=== PATIENT | female | born 1965 | race Caucasian/White ===

== ENCOUNTER 2021-03-07 17:51 | Emergency (ER) | payer MEDICARE, MEDICAID, SELFPAY ==
--- NOTE | ~2021-03-07 | CT_ITS ---
EXAMINATION: CT HEAD WITHOUT CONTRAST CLINICAL INFORMATION: Headache COMPARISON: None TECHNIQUE: Contiguous axial imaging was performed from the skull base to vertex without intravenous administration of contrast. This CT examination was performed using dose optimization techniques as appropriate, variously including the following: *Automated exposure control *Adjustment of mA and/or kV according to patient size (this includes techniques or standardized protocols for targeted exams where dose is matched to indication/reason for exam; i.e. extremities or head) *Use of iterative reconstruction technique DLP: 688 mGy-cm FINDINGS: There is no evidence of acute intracranial hemorrhage or territorial infarction. No abnormal mass effect or midline shift is seen. Zee to white matter differentiation is well preserved. No extra-axial fluid collections are identified. The ventricles are normal in size. There is no abnormal attenuation within the brain parenchyma. The osseous structures and soft tissues are normal. The mastoid air cells and visualized portions of the paranasal sinuses are well aerated. CT/CT head/brain wo con IMPRESSION: No CT evidence acute intracranial pathology.
[2021-03-07 18:03] VITALS: BP 108/61; BP 123/63; PULSE 69; PULSE 73; RESP 16; TEMP 36.7; O2SAT 96; BMI 49.9
[2021-03-07 18:11] VITALS: BP 106/65; PULSE 69; RESP 17; TEMP 36.9; O2SAT 97
--- NOTE | 2021-03-07 18:16 | PC.NURSE ---
PT ARRIVED VIA AMBULANCE. PT REPORTS OTERO FOR ALMOST 1wk. TAKES 10mg LISINOPRIL FOR HTN, TAKES BP WITH WRIST CUFF AT HOME AND HAS BEEN GETTING HIGH READINGS FOR THE PAST 2 DAYS. TAKES CLONIDINE AND HYDROXYZINE FOR ANXIETY, METFORMIN FOR DIABETES.
--- NOTE | 2021-03-07 18:34 | ED_ITS ---
HPI - Headache General Chief Complaint: Headache Stated Complaint: HI BP,HEADACHE X 7 DAYS Time Seen by Provider: 03/07/21 20:02 Source: patient and EMS Mode of arrival: EMS Limitations: no limitations History of Present Illness HPI Narrative: 56-year-old female with past medical history of obesity, hypertension, and recurrent headaches presents via EMS with a report of an elevated blood pressure of 170/80, and headache with retro-orbital pain that she has had for the past 7 days. She reports that she was recently worked up by an supervisor kennel for elevated eye pressure, states that her eye pressure is 27, and h as a follow-up appointment next week. She was not started on any new medications, does not report any other symptoms, denies fevers, chills, dizziness, lightheadedness, nausea, vomiting, changes in vision, chest pain or pressure, palpitations, shortness breath, shortness breath on exertion, abdominal pain, abdominal distention, dysuria, hematuria, diarrhea, constipation, melena, hematochezia, and any other concerning symptoms. MD elicited complaint: headache and migraine Pertinent past history: migraines Onset (ago): day(s) (7) Onset description: gradually Location: retro-orbital Severity: moderate Pain scale (0-10): 7 Quality & Timing: throbbing, pulsatile, steady, constant, pressure and different than previous headaches Relieving factors: nothing Context: occurred at rest Associated symptoms: none Treatments prior to arrival: acetaminophen and ibuprofen Related Data Previous Rx's Medication Instructions Recorded [id number]-ieclyviozlrcb-fmfl 1 cap PO Q6H PRN #14 cap 03/07/21 [Fioricet] Allergies Allergy/AdvReac Type Severity Reaction Status Date / Time No Known Allergies Allergy Mild NONE Unverified 08/13/20 16:59 N.K.D.A. Allergy Unknown Uncoded 06/09/17 00:00 Review of Systems Review of Systems: Constitutional: Positive headache, No Fever, No Chills ENT/Mouth: No Ear Pain, No Hoarseness, No sore throat Eyes: Positive Eye Pain, No Swelling, No Redness, No Foreign Body Cardiovascular: No Chest Pain, No SOB Respiratory: No Cough, No Dyspnea Gastrointestinal: No Nausea, No Vomiting, No Diarrhea, No abdominal Pain Genitourinary: No Dysuria, No Hematuria Musculoskeletal: positive joint pain, No Myalgias, No Joint Swelling Skin: No Skin lacerations, No rash Neuro: No Weakness, No Numbness, No Paresthesias, No Loss of Consciousness, No Dizziness, No Headache Psych: No Anxiety/Panic, No Depression Heme/Lymph: no easy bruising, no Lymphadenopathy Endocrine: No Polyuria, No Polydipsia Yes all other systems are reviewed and are negative [facility] Past Medical History Attestation statement: The following information was validated with the patient. Source: old records reviewed Social History Social History Smoking Status: Never smoker Use of substances other than those prescribed or required for medical reasons: No Advance Directives: No Advance Directives Information Provided: Yes Physical Exam Vital Signs: Vital Signs: Last Vital Signs Temp 98.4 F 03/07/21 18:11 Pulse 69 03/07/21 18:11 Resp 17 03/07/21 18:11 BP 106/65 03/07/21 18:11 Pulse Ox 97 03/07/21 18:11 Body Mass Index 49.9 Appearance: Alert. Oriented X3. No acute distress. Head: Normal external exam. Normocephalic. Atraumatic. No Gaytan signs noted. No raccoon eyes noted Eyes: PERRLA. EOMI. Conjunctiva and sclera normal. Eyelids normal. ENT: TM's Normal. Pharynx normal. Uvula midline. Moist mucous membranes. No trismus noted. No drooling noted. No muffled voice noted. Neck: Normal inspection. Neck supple. No adenopathy. Thyroid Normal. No meningeal signs. No neck mass noted. CVS: Normal heart rate and rhythm. Heart sound normal. No murmurs noted. Pulses equal to all extremities. Respiratory: No respiratory distress. Painless inspiration. Breath sounds normal. No wheezes/rales/rhonchi noted. Chest nontender. No accessory muscle usage noted or decreased air movement noted. Abdomen: Soft and nontender. Bowel sounds normal in all 4 quadrants. No distention noted. No organomegaly noted. No visible injury noted. Back: No CVA tenderness. Full range of motion noted. Skin: Skin warm and dry. Normal skin color. Normal skin turgor. No rashes/lesions/lacerations noted. Extremities: No lower extremity edema. Extremities exhibit normal range of motion. Extremities nontender. Neuro: cranial nerves 2-12 intact, no focal neural deficits, strength 5/5 to all extremities, No motor deficit. No sensory deficit. Reflexes normal. NIH Stroke Scale Internal: Initial- Upon Arrival Level of Consciousness: Alert Level of Consciousness Questions: Answers both questions correctly Level of Consciousness Commands: Performs both tasks correctly Best Gaze: Normal Visual: No visual loss Facial Palsy: Normal Motor Arm (Right): No drift Motor Arm (Left): No drift Motor Leg (Right): No drift Motor Leg (Left): No drift Limb Ataxia: Absent Sensory: Normal Best Language: No aphasia Dysarthia: Normal Extinction and Inattention: No abnormality Score: 0 Course Course Course Narrative: 56-year-old female with obesity, hypertension, chronic headaches presents with an elevated blood pressure reading from home of 170/80, currently blood pressure is 108/61, and with a headache for 7 days retro-orbital pressure. She states that she has been taking Tylenol once a day, and has only used Motrin once throughout the week. She does not describe any other symptoms with the exception that she was worked up by Ophthalmology for an elevated eye pressure. She does not have any medications to control his eye pressure but does have a follow-up appointment next week. Neurological exam is negative, physical exam is normal, plan of care discussed with patient, patient would like to have a CT scan. Risks and benefits discussed. At this time patient is afebrile, asymptomatic, vital signs within normal limits and stable. No need for further studies at this time. CT scan is negative for acute findings requiring emergent intervention. Patient was advised to follow up with primary care physician for hypertension, will give a prescription for Fioricet for migraines. Patient was encouraged to follow up with Optometry for elevated eye pressures as scheduled. Patient verbalized understanding of and agrees plan of care discharge home. MDM - Headache Differential Diagnosis Differential diagnosis: Likely migraine, tension headache, headache and sinusitis Medical Records Attestation: I reviewed the patient's medical records. Imaging Data CT scan - head: Attestation: I personally reviewed and interpreted this imaging study as follows: Radiologist's impression: EXAMINATION: CT HEAD WITHOUT CONTRAST CLINICAL INFORMATION: Headache COMPARISON: None TECHNIQUE: Contiguous axial imaging was performed from the skull base to vertex without intravenous administration of contrast. This CT examination was performed using dose optimization techniques as appropriate, variously including the following: *Automated exposure control *Adjustment of mA and/or kV according to patient size (this includes techniques or standardized protocols for targeted exams where dose is matched to indication/reason for exam; i.e. extremities or head) *Use of iterative reconstruction technique DLP: 688 mGy-cm FINDINGS: There is no evidence of acute intracranial hemorrhage or territorial infarction. No abnormal mass effect or midline shift is seen. Zee to white matter differentiation is well preserved. No extra-axial fluid collections are identified. The ventricles are normal in size. There is no abnormal attenuation within the brain parenchyma. The osseous structures and soft tissues are normal. The mastoid air cells and visualized portions of the paranasal sinuses are well aerated. CT/CT head/brain wo con IMPRESSION: No CT evidence acute intracranial pathology. Discharge Plan Discharge Clinical Impression: Headache Qualifiers: Headache type: unspecified Headache chronicity pattern: chronic headache Intractability: intractable Qualified Code(s): R51.9 - Headache, unspecified Hypertension Qualifiers: Hypertension type: essential hypertension Qualified Code(s): I10 - Essential (primary) hypertension Patient Disposition: Home, Self-Care Instructions: Migraine Headache (ED), Hypertension (ED) Additional Instructions: You were evaluated for headache, and hypertension. During your ER visit your blood pressure was normal. Please follow-up the primary care physician for further hypertension workup. We did a CT scan of your head for headache lasting over [address] scan was normal. We prescribed Fioricet for migraines. Please take this medication as prescribed Please continue to follow-up with ophthalmology. Keep your scheduled appointments on the and the . Thank you for choosing this emergency department for evaluation. Please follow-up with primary care physician as needed. Return to the emergency department for any new, concerning, or worsening symptoms. Prescriptions: New nnkixrnbib-yendwrwcqxftt-bvpv [Fioricet] 50-300-40 mg capsule 1 cap PO Q6H PRN (Reason: pain) Qty: 14 RF: 0 Interventions: ED Discharge Assessment Last Done: 03/07/21 20:58 Discharge Date/Time: 03/07/21 20:40
== END 2021-03-07 20:40 | disposition home or self-care (01) ==
PROVIDERS: Emergency Provider Emergency Medicine; PCP Internal Medicine
DX: R51.9 Headache, unspecified (principal); I10 Essential (primary) hypertension; E11.9 Type 2 diabetes mellitus without complications; Z79.84 Long term (current) use of oral hypoglycemic drugs; Z79.899 Other long term (current) drug therapy
CPT/HCPCS: 70450; 99284

== ENCOUNTER 2021-09-26 00:31 | Emergency (ER) | payer MEDICARE, MEDICAID, SELFPAY ==
--- NOTE | ~2021-09-26 | XR_ITS ---
EXAMINATION: XR CHEST CLINICAL INFORMATION: Cough COMPARISON: None TECHNIQUE: Frontal view of the chest was obtained. FINDINGS: The lungs are clear with no focal consolidation. No evidence of pneumothorax, pulmonary edema, or pleural effusions. The cardiomediastinal silhouette is unremarkable. No acute osseous findings. XR/XR chest 1V IMPRESSION: No acute cardiopulmonary findings.
[2021-09-26 00:49] VITALS: BP 152/95; PULSE 102; RESP 18; TEMP 36.8; O2SAT 97; BMI 45.7
--- NOTE | 2021-09-26 01:14 | ED_ITS ---
HPI - General Adult General Chief complaint: Fever Stated complaint: COVID test Time Seen by Provider: 09/26/21 01:06 Source: patient Mode of arrival: ambulatory History of Present Illness HPI narrative: This is a 56-year-old female with significant past medical history of asthma and presents with a few episodes of nausea and vomiting day before yesterday and then woke up yesterday morning with a sore/course throat as well as persistent cough for 2 days and subjective chills overnight. Patient states that she overall does not feel well, and denies any recent exposure to COVID-19 and she states that she has had all 3 vaccines. She is specifically requesting COVID-19 testing at this time. Related Data Previous Rx's Medication Instructions Recorded vokmqzhcsk-txmeciuvibxtj-gpfzcolt 1 cap PO Q6H PRN #14 cap 03/07/21 50 mg-300 mg-40 mg capsule (Fioricet) Allergies Allergy/AdvReac Type Severity Reaction Status Date / Time No Known Allergies Allergy Mild NONE Unverified 08/13/20 16:59 N.K.D.A. Allergy Unknown Uncoded 06/09/17 00:00 Review of Systems Review of Systems: Pertinent positives and negatives as stated in HPI and 10 point review of systems is otherwise negative. [facility] Past Medical History Source: nursing notes reviewed Social History Social History Advance Directives: No Advance Directives Information Provided: Yes Patient : No Physical Exam Vital Signs: Vital Signs: Last Vital Signs Temp 98.2 F 09/26/21 00:49 Pulse 102 H 09/26/21 00:49 Resp 18 09/26/21 00:49 BP 152/95 H 09/26/21 00:49 Pulse Ox 97 09/26/21 00:49 Body Mass Index 45.7 VITAL SIGNS: Reviewed. GENERAL: Well developed, well nourished, in no acute distress. HEAD: Normocephalic/atraumatic EYES: PERRLA, EOMI OROPHARYNX: no oral lesions noted, posterior pharynx clear LUNGS: Normal breath sounds, no wheeze/rhonchi/rales. No adventitious sounds or accessory muscle use. SpO2<97> CARDIOVASCULAR: Regular rate and rhythm without noted murmurs, no JVD or lower extremity edema. ABDOMEN: Soft, non-tender, non-distended with bowel sounds. NEUROLOGIC: Alert and oriented x 4. Course Course Course Narrative: 56-year-old female with history and clinical presentation consistent with suspected gastroenteritis, however will provide COVID-19 testing and patient endorses that she is currently tolerating oral intake. Review of all investigations otherwise negative for acute findings and all results were discussed with the patient at bedside. Medical Decision Making Lab Data Labs: Lab Results 09/26/21 Range/Units 01:06 COVID-19 (DUSTIN) Negative (Negative) COVID-19 Clin Com See Note Discharge Plan Discharge Clinical Impression: Gastroenteritis, Viral syndrome Patient Disposition: Home, Self-Care Instructions: Viral Syndrome (ED), Gastroenteritis (ED) Additional Instructions: 1. Please follow-up with your primary care provider via telemedicine on Monday morning for re-evaluation. Please return to the ER if you develop any acute worsening of your symptoms. Prescriptions: No Action irgxipcxrn-slevjsfefdwpb-hyvf [Fioricet] 50-300-40 mg capsule 1 cap PO Q6H PRN (Reason: pain) Qty: 14 RF: 0 Referrals: Lakeisha Hernández MD [Primary Care Provider] - 2 days
[2021-09-26 01:41] LABS: COVID-19 Test Negative (Negative); IDNOW Serial# 9DD0AD1C
== END 2021-09-26 03:06 | disposition home or self-care (01) ==
PROVIDERS: Emergency Provider Student in an Organized Health Care Education/Training Program; PCP Internal Medicine
DX: K52.9 Noninfective gastroenteritis and colitis, unspecified (principal); B34.9 Viral infection, unspecified; J02.9 Acute pharyngitis, unspecified; Z20.822 Contact with and (suspected) exposure to COVID-19
CPT/HCPCS: 36415; 71045; 87635; 99283

== ENCOUNTER 2022-01-06 11:00 | Inpatient (IN) | payer MEDICARE, MEDICAID, SELFPAY ==
[2022-01-06] VITALS (12 sets, daily range): BP systolic 73–138; BP diastolic 23–82; PULSE 56–70; RESP 11–20; TEMP 36.2–37.2; O2SAT 95–99; BMI 48.0
--- NOTE | ~2022-01-06 | CT_ITS ---
EXAMINATION: CT HEAD WITHOUT CONTRAST CLINICAL INFORMATION: Weakness COMPARISON: Four 1121 TECHNIQUE: Contiguous axial imaging was performed from the skull base to vertex without intravenous contrast. This CT examination was performed using dose optimization techniques as appropriate, variously including the following: * Automated exposure control * Adjustment of mA and/or kV according to patient size (this includes techniques or standardized protocols for targeted exams where dose is matched to indication/reason for exam; i.e. extremities or head) Use of iterative reconstruction technique DLP: 649 mGy-cm. FINDINGS: There is no evidence of acute intracranial hemorrhage or territorial infarction. No abnormal mass effect or midline shift is seen. Zee to white matter differentiation is well preserved. No extra-axial fluid collections are identified. No hydrocephalus. No significant volume loss. There is no abnormal attenuation within the brain parenchyma. The osseous structures and soft tissues are normal. The mastoid air cells and visualized portions of the paranasal sinuses are well aerated. CT/CT head/brain wo con IMPRESSION: No acute intracranial pathology.
--- NOTE | ~2022-01-06 | CT_ITS ---
EXAMINATION: CT ABDOMEN AND PELVIS WITHOUT CONTRAST CLINICAL INFORMATION: Acute renal failure COMPARISON: CT scan abdomen pelvis 04/27/2017 TECHNIQUE: Multidetector volumetric imaging was performed from the superior aspect of the liver through the pubic symphysis. Sagittal and coronal reformatted images were obtained on the technologist's workstation. This CT examination was performed using dose optimization techniques as appropriate, variously including the following: *Automated exposure control *Adjustment of mA and/or kV according to patient size (this includes techniques or standardized protocols for targeted exams where dose is matched to indication/reason for exam; i.e. extremities or head) *Use of iterative reconstruction technique DLP: 1091 mGy-cm FINDINGS: LUNG BASES: The visualized lung bases are unremarkable. LIVER, GALLBLADDER, AND BILIARY TREE: The liver is normal in size, shape, and attenuation. No focal hepatic lesion or biliary ductal dilatation is present. Status post cholecystectomy. PANCREAS: Unremarkable. SPLEEN: Unremarkable. ADRENAL GLANDS: Unremarkable. KIDNEYS AND URETERS: The kidneys are normal in size, shape, and attenuation. No hydronephrosis, hydroureter, or calculi seen. No perinephric stranding. BLADDER: Unremarkable. GASTROINTESTINAL TRACT: No acute abnormality of bowel. There is no bowel wall thickening /edema. The changes of colitis seen on the CAT scan of 04/27/2017 have resolved. There is no bowel obstruction. There is a moderate volume of stool in the colon. The appendix is nonvisualized . The small bowel loops are unremarkable. The stomach is normal. There is no hiatal hernia. ABDOMINAL WALL: No significant hernia is appreciated. LYMPH NODES: Normal. VASCULAR: Unremarkable. PELVIC VISCERA: Unremarkable. OSSEOUS STRUCTURES: Multilevel degenerative spondylosis of the spine. CT/CT abdomen pelvis wo con IMPRESSION: No acute abnormality CT scan abdomen pelvis. Fleischner guidelines were followed.
--- NOTE | ~2022-01-06 | XR_ITS ---
EXAMINATION: XR CHEST CLINICAL INFORMATION: Weakness COMPARISON: 09/26/2021 TECHNIQUE: Frontal view of the chest was obtained. FINDINGS: Cardiac leads overlie the chest. The lungs are well expanded. There is no focal consolidation, edema, or effusion. No pneumothorax. The cardiomediastinal silhouette is within normal limits. No acute osseous abnormality. XR/XR chest 1V IMPRESSION: No acute pulmonary finding.
--- NOTE | 2022-01-06 12:25 | ED_ITS ---
HPI - General Adult General Chief complaint: General Medical Stated complaint: DIZZY,WEAK,NAUSEA,VOMITING X'S 4 DAYS Time Seen by Provider: 01/06/22 12:25 Source: patient Mode of arrival: ambulatory Limitations: no limitations History of Present Illness HPI narrative: 56-year-old female with a history of diabetes on metformin and Trulicity, BC, hypertension, hyperlipidemia, asthma, hypothyroid, depression anxiety, and recurrent headache, presents for 4 days of progressive weakness. Patient has felt lightheaded for the last 4 days. States the she has felt weaker than normal, and today she can not stand. She has been nauseous these last 4 days. She vomited 2-3 times over the last 4 days, and had diarrhea once. She has a mild headache. Today at 10:30, both of her legs gave out and she sat down. She did not hit her head. She has a baseline left hand tremor that is worse today She is feeling uncoordinated, and could not adjust the cuff on her sleeve while in the waiting room. 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 She saw Cardiology last year, for evaluation of dyspnea, and she was diagnosed as deconditioned. Denies chest pain, shortness of breath, fevers, cough, dysuria, hematuria, bowel or bladder incontinence, neck pain, saddle paresthesias, palpitations Related Data Home Medications Medication Instructions Recorded Confirmed albuterol sulfate 90 mcg/actuation 2 puff INHALATION Q6H PRN 01/06/22 aerosol inhaler atorvastatin 80 mg tablet 1 tab PO DAILY 01/06/22 bupropion HCl 150 mg 24 hr tablet, 1 tab PO DAILY 01/06/22 extended release bupropion HCl 300 mg 24 hr tablet, 1 tab PO DAILY 01/06/22 extended release citalopram 10 mg tablet 1 tab PO DAILY 01/06/22 clonidine HCl 0.1 mg tablet 2 tab PO BEDTIME 01/06/22 diltiazem HCl 180 mg 1 cap PO DAILY 01/06/22 capsule,extended release 24 hr, controlled (DILT-XR) dulaglutide 1.5 mg/0.5 mL 0.5 ml SUBCUT QWEEK 01/06/22 subcutaneous pen injector ([facility]) ezetimibe 10 mg tablet 1 tab PO DAILY 01/06/22 gabapentin 300 mg capsule 1 cap PO DAILY PRN 01/06/22 hydrochlorothiazide 25 mg tablet 1 tab PO DAILY 01/06/22 lamotrigine 100 mg tablet 1 tab PO DAILY 01/06/22 latanoprost 0.005 % eye drops 1 drp OPHTHALMIC (EYE) BEDTIME 01/06/22 levothyroxine 125 mcg tablet 1 tab PO QAM 01/06/22 lisinopril 30 mg tablet 1 tab PO DAILY 01/06/22 metformin 1,000 mg tablet 1 tab PO BID 01/06/22 trazodone 50 mg tablet 1.5 tab PO BEDTIME 01/06/22 Previous Rx's Medication Instructions Recorded [id number]-[id number] 1 cap PO Q6H PRN #14 cap 03/07/21 50 mg-300 mg-40 mg capsule (Fioricet) Allergies Allergy/AdvReac Type Severity Reaction Status Date / Time No Known Allergies Allergy Mild NONE Unverified 08/13/20 16:59 N.K.D.A. Allergy Unknown Uncoded 06/09/17 00:00 Review of Systems Constitutional: Constitutional: Denies body ache(s), Denies chills, Denies fatigue, Denies fever(s), Reports headache(s), Denies malaise and Reports weakness Eyes: Eyes: Denies blurry vision, Denies change in vision and Denies diplopia ENT: Denies vertigo, Reports dizziness, Denies otalgia, Reports headache(s), Denies post nasal drip, Denies sinus pain, Denies sore throat and Reports other (dry mouth) Cardiovascular: Cardiovascular: Denies chest pain, Denies syncope, Denies leg edema, Denies lightheadedness, Denies Loss of Consciousness, Denies palpitations and Denies dyspnea Respiratory: Respiratory: Denies chest congestion, Denies cough and Denies dyspnea Gastrointestinal: Gastrointestinal: Denies abdominal pain, Denies hematochezia, Denies constipation, Reports diarrhea, Reports nausea and Reports vomiting Genitourinary: Genitourinary: Denies dysuria, Denies pelvic pain, Denies flank pain, Denies urinary hesitancy, Denies urinary urgency and Denies vaginal discharge Musculoskeletal: Musculoskeletal: Reports muscle weakness (bilateral legs) Integumentary/Breasts: Skin/Breast: Reports wounds (right ball of foot) Neurologic: Denies Abnormal speech present, Denies confusion, Denies vertigo, Reports dizziness, Denies syncope, Reports headache(s), Denies Sensory deficit (Neuro), Reports tremor(s) (left hand, baseline, worsening) and Reports weakness Psychiatric: Psychiatric: Reports anxiety, Denies confusion and Reports depression Endocrine: Endocrine: Denies fatigue and Denies palpitations [facility] Past Medical History Medical History CKD stage 3 secondary to diabetes Family History Family History Other Hypertension Social History Social History Advance Directives: No Advance Directives Information Provided: No Physical Exam Vital Signs: Vital Signs: Last Vital Signs Temp 98.4 F 01/06/22 13:57 Pulse 60 01/06/22 16:13 Resp 11 L 01/06/22 16:13 BP 96/46 L 01/06/22 17:12 Pulse Ox 99 01/06/22 15:08 BMI result Body Mass Index 48.0 Const: General: alert and awake; No confusion Nutritional Appearance: obese morbidly obese Orientation/consciousness: patient oriented x3 and No confusion Limitations: no limitations HENMT: Head: Yes normal to inspection, Yes normocephalic and Yes atraumatic Ears: hearing grossly normal bilaterally and external ears normal General nose exam: Normal external nose present Face and sinus: Yes normal facial exam Mouth: mucous membranes dry (dry) Throat: Yes posterior oropharynx normal Eyes: Conjunctivae: conjunctivae normal Pupils: Equal, round and reactive pupils present EOM: EOMs intact bilaterally and No Nystagmus present Neck: Other: tender bilateral soft tissue neck, no cervical vertebral tenderness Neck: Yes full ROM, Yes no lymphadenopathy, Yes no meningeal signs, Yes trachea midline and Yes supple Resp: Effort & Inspection: normal respiratory effort and able to speak in complete sentences Auscultation: clear to auscultation bilaterally, no crackles, no rales, no rhonchi and no wheezes Cardio: Rate: regular rate Rhythm: regular rhythm Heart sounds: S1 n ormal heart sound present and S2 normal heart sound present GI: Inspection: Yes normal to inspection Palpation (GI): Soft to palpation, nontender, no guarding and not rigid Percussion: Yes normal to percussion Auscultation: normal bowel sounds Skin: Wounds: wounds noted ulceration right plantar foot Neuro: General: patient oriented x3, no meningeal signs, No confusion and Unable to assess gait Cranial nerves: Yes CN's II-XII intact bilaterally, Yes Facial sensation intact/muscles of mastication intact, Yes Equal, round and reactive pupils present, Yes Bilaterally intact EOM present, Yes Nystagmus not present, Yes Normal facial strength present, Yes Midline tongue present, Yes Ability to bilaterally rotate head present, Yes Ability to bilaterally elevate shoulders present and No Nystagmus present Cognition (Neuro): normal cognition Speech: No Abnormal speech present Gait exam (Neuro): Unable to assess gait Motor exam (neuro): 5/5 motor strength present throughout and Pronator motor function not present Sensory Exam: No Sensory deficit (Neuro) Coordination: [id number] test normal Pupils: Normal pupillary reactivity/response: bilateral Extrem: General: Yes normal to inspection and Yes full ROM Psych: Appearance: grossly normal Affect: normal affect Attitude: cooperative Thought process: Normal thought process present Course Course Course Narrative: 56-year-old female With past medical history of diabetes, chronic kidney disease stage 3, obesity, hypertension, hyperlipidemia, asthma, recurrent headache, hypothyroid, depression anxiety, presents with 4 days of lightheadedness and weakness, with nausea, 1 episode of diarrhea, and 3 episodes of vomiting. On exam, patient is able to transfer to chair, but is shaky. Patient has low blood pressure, systolic is in the 80s. Patient is alert and oriented, and is mentating fine. Afebrile. Patient has dry mucous membranes. Leukocytosis 13.8, H&H is 10.7 and 31.3. Patient has hyperkalemia at 5.4, and a creatinine of 6.13. Lactate 2.4. Initiated sepsis workup; Fluids, vanco, Zosyn, blood cultures. Elevated lactic be from sepsis, dehydration, or metformin. Will get dry CT abdomen pelvis to evaluate for pre renal disease. Patient is in acute renal failure. Patient is seen in [place] for her care. Urine is not infected, shows dehydration. Reevaluation(s) Reevaluation #1: On re-evaluation, SBP now 94. Pt still mentating well, told me that she has missed doctors appointments since July, because in July her sister who is unvaccinated of COVID, and her was diagnosed with Alzheimer's CT shows no acute abnormality Reevaluation #2: BP is now 98/46 Discussed pt with hospitalist Dr Gipson, he will admit Repeat lactic pending Signed pt out to Dr Bustillo, pt is pending admission, awaiting repeat lactate. Medical Decision Making Lab Data Result diagrams: 01/06/22 12:21 01/06/22 12:21 Labs: Lab Results 01/06/22 01/06/22 01/06/22 Range/Units 12:21 12:21 12:21 WBC 13.8 H (4.8-10.8) X10*3/uL RBC 3.45 L (4.20-5.50) X10*6/uL Hgb 10.7 L (12.0-16.0) g/dl Hct 31.3 L (37.0-47.0) % MCV 90.7 (80.0-98.0) fL MCH 31.0 (27.0-33.0) pg MCHC 34.2 (31.0-35.0) g/dl RDW 12.5 (11.0-16.0) % Plt Count 473 H (160-400) X10*3/uL MPV 8.8 L (9.4-12.3) fL Immature Gran % (Auto) 0.4 (0.0-0.4) % Neut % (Auto) 41.1 L (45-73) % Lymph % (Auto) 46.6 H (20-40) % [place] % (Auto) 9.8 (2-11) % Eos % (Auto) 1.7 (0-4) % Baso % (Auto) 0.4 (0-2) % Lymph # (Auto) 6.5 H (1.2-4.9) X10*3/uL [place] # (Auto) 1.4 H (0.1-1.2) X10*3/uL Eos # (Auto) 0.2 (0.0-0.4) X10*3/uL Baso # (Auto) 0.1 (0.0-0.2) X10*3/uL Abs Immat Gran (auto) 0.05 H (0.00-0.03) X10*3/uL Absolute Neuts (auto) 5.7 (2.0-8.3) x10*3/uL Absolute Nucleated RBC 0.000 (0.0-0.012) X10*3/uL Nucleated RBC % (auto) 0.0 (0.0-0.2) /100WBC Smear Tech's Comments VERIFIED Sodium 132 L (135-145) mmol/L Potassium 5.4 H (3.3-5.1) mmol/L Chloride 96 (96-108) mmol/L Carbon Dioxide 22 (22-29) mmol/L Anion Gap 19 (12-20) BUN 61 H (9-16) mg/dL Creatinine 6.13 H* (0.5-1.4) mg/dL Estim Creat Clear Calc 13.3 Estimated GFR 7 Random Glucose 139 H (60-115) mg/dL Lactic Acid (0.5-2.0) mmol/L Calcium 9.2 (8.4-10.2) mg/dL Magnesium 1.7 (1.6-2.6) mg/dL Total Bilirubin 0.4 (0.0-1.0) mg/dL AST 13 (5-31) U/L ALT 17 (0-31) U/L Alkaline Phosphatase 84 (39-117) U/L Troponin I High Sens (<3.5-17.0) ng/L Total Protein 7.5 (6.5-8.0) g/dL Albumin 4.2 (3.5-5.0) g/dL Urine Color Urine Appearance Urine pH (5.0-8.0) Ur Specific [place] (1.005-1.025) Urine Protein (NEG-TRACE) MG/DL Urine Glucose (UA) (NEG) MG/DL Urine Ketones (NEG) MG/DL Urine Blood (NEG) Urine Nitrite (NEG) Ur Leukocyte Esterase (NEG) COVID-19 (DUSTIN) Negative (Negative) COVID-19 Clin Com See Note 01/06/22 01/06/22 01/06/22 Range/Units 12:54 12:54 14:07 WBC (4.8-10.8) X10*3/uL RBC (4.20-5.50) X10*6/uL Hgb (12.0-16.0) g/dl Hct (37.0-47.0) % MCV (80.0-98.0) fL MCH (27.0-33.0) pg MCHC (31.0-35.0) g/dl RDW (11.0-16.0) % Plt Count (160-400) X10*3/uL MPV (9.4-12.3) fL Immature Gran % (Auto) (0.0-0.4) % Neut % (Auto) (45-73) % Lymph % (Auto) (20-40) % [place] % (Auto) (2-11) % Eos % (Auto) (0-4) % Baso % (Auto) (0-2) % Lymph # (Auto) (1.2-4.9) X10*3/uL [place] # (Auto) (0.1-1.2) X10*3/uL Eos # (Auto) (0.0-0.4) X10*3/uL Baso # (Auto) (0.0-0.2) X10*3/uL Abs Immat Gran (auto) (0.00-0.03) X10*3/uL Absolute Neuts (auto) (2.0-8.3) x10*3/uL Absolute Nucleated RBC (0.0-0.012) X10*3/uL Nucleated RBC % (auto) (0.0-0.2) /100WBC Smear Tech's Comments Sodium (135-145) mmol/L Potassium (3.3-5.1) mmol/L Chloride (96-108) mmol/L Carbon Dioxide (22-29) mmol/L Anion Gap (12-20) BUN (9-16) mg/dL Creatinine (0.5-1.4) mg/dL Estim Creat Clear Calc Estimated GFR Random Glucose (60-115) mg/dL Lactic Acid 2.7 H* (0.5-2.0) mmol/L Calcium (8.4-10.2) mg/dL Magnesium (1.6-2.6) mg/dL Total Bilirubin (0.0-1.0) mg/dL AST (5-31) U/L ALT (0-31) U/L Alkaline Phosphatase (39-117) U/L Troponin I High Sens 8.2 (<3.5-17.0) ng/L Total Protein (6.5-8.0) g/dL Albumin (3.5-5.0) g/dL Urine Color YELLOW Urine Appearance HAZY Urine pH 5.5 (5.0-8.0) Ur Specific [place] >= 1.030 H (1.005-1.025) Urine Protein TRACE (NEG-TRACE) MG/DL Urine Glucose (UA) NEG (NEG) MG/DL Urine Ketones 5 (NEG) MG/DL Urine Blood NEG (NEG) Urine Nitrite NEG (NEG) Ur Leukocyte Esterase NEG (NEG) COVID-19 (DUSTIN) (Negative) COVID-19 Clin Com ECG Data Interpretation: sinus bradycardia at a rate of 58, ND interval 154, QRS 84, QTC 428, normal axis, no ST depression or elevation, no T-wave changes Discharge Plan Discharge Clinical Impression: Acute kidney failure, Dehydration, Leukocytosis, Hypotension Patient Disposition: Admitted As Inpatient
--- NOTE | 2022-01-06 12:37 | ECG_ITS ---
Test Reason : general medicine Blood Pressure : / mmHG Vent. Rate : 058 BPM Atrial Rate : 058 BPM P-R Int : 154 ms QRS Dur : 084 ms QT Int : 436 ms P-R-T Axes : 048 027 020 degrees QTc Int : 428 ms Sinus bradycardia Otherwise normal ECG When compared with ECG of 25-APR-2017 22:39, Vent. rate has decreased BY 29 BPM Referred By: Azra Luis Electronically Signed By:Jonatan Spence
[2022-01-06 12:52] LABS: Basophils Absolute Auto 0.1 X10*3/uL (0.0-0.2); Basophils Percent Auto 0.4 % (0-2); Eosinophils Absolute Auto 0.2 X10*3/uL (0.0-0.4); Eosinophils Percent Auto 1.7 % (0-4); Hematocrit 31.3 % (37.0-47.0); Hemoglobin 10.7 g/dl (12.0-16.0); Imm Gran Abs Auto 0.05 X10*3/uL (0.00-0.03); Imm Gran Pct Auto 0.4 % (0.0-0.4); Lymphocytes Percent Auto 46.6 % (20-40); MANUAL DIFF FLAG SCAN; Mean Corpuscular HGB Conc 34.2 g/dl (31.0-35.0); Mean Corpuscular Volume 90.7 fL (80.0-98.0); Mean Platelet Volume 8.8 fL (9.4-12.3); Monocytes Absolute Auto 1.4 X10*3/uL (0.1-1.2); Monocytes Percent Auto 9.8 % (2-11); Neutrophils Absolute Auto 5.7 x10*3/uL (2.0-8.3); Neutrophils Percent Auto 41.1 % (45-73); Platelet Count 473 X10*3/uL (160-400); Red Blood Count 3.45 X10*6/uL (4.20-5.50); Red Cell Distribution Width 12.5 % (11.0-16.0); SCAN SMEAR FLAG 1; White Blood Count 13.8 X10*3/uL (4.8-10.8)
[2022-01-06 12:54] LABS: Lymphocytes Absolute Auto 6.5 X10*3/uL (1.2-4.9)
[2022-01-06] MEDS: 0.9 % Sodium Chloride 1,000 ML 999 ML IV (12:58)
[2022-01-06 13:03] LABS: COVID-19 Test Negative (Negative); IDNOW Serial# 9DD0AD1C
[2022-01-06 13:24] LABS: Lactic Acid 2.7 mmol/L (0.5-2.0)
[2022-01-06 13:24] LABS: Alanine Aminotransferase 17 U/L (0-31); Albumin Level 4.2 g/dL (3.5-5.0); Alkaline Phosphatase 84 U/L (39-117); Anion Gap 19 (12-20); Aspartate Amino Transferase 13 U/L (5-31); Bilirubin Total 0.4 mg/dL (0.0-1.0); Blood Urea Nitrogen 61 mg/dL (9-16); Calcium 9.2 mg/dL (8.4-10.2); Carbon Dioxide 22 mmol/L (22-29); Chloride 96 mmol/L (96-108); Creatinine Clr Calc Pharmacy 13.3; Estimated Glomerular Filt Rate 7; Glucose Random 139 mg/dL (60-115); Potassium 5.4 mmol/L (3.3-5.1); Sodium 132 mmol/L (135-145); Total Protein 7.5 g/dL (6.5-8.0)
[2022-01-06 13:26] LABS: Troponin-I High Sensitivity 8.2 ng/L (<3.5-17.0)
[2022-01-06 13:29] LABS: SLIDE REVIEW VERIFIED
[2022-01-06] MEDS: 0.9 % Sodium Chloride 3,810.18 ML 3810.18 ML IV (14:01)
[2022-01-06 14:15] LABS: Appearance Urine HAZY; Color Urine YELLOW; Glucose Urine UA NEG (NEG); Leukocyte Esterase Urine NEG (NEG); Nitrite Urine NEG (NEG); PH 5.5 (5.0-8.0); Specific Gravity - Urine >= 1.030 (1.005-1.025); Urine Blood NEG (NEG); Urine Ketones 5 MG/DL (NEG); Urine Protein TRACE MG/DL (NEG-TRACE)
[2022-01-06] MEDS: Piperacillin Sodium/Tazobactam 4.5 GM in 0.9 % Sodium Chloride 100 ML IV (14:41)
[2022-01-06 14:48] LABS: Magnesium 1.7 mg/dL (1.6-2.6)
[2022-01-06 14:58] LABS: Reflex Lactate? Lactic Acid Added
--- NOTE | 2022-01-06 17:31 | PM.IMHP ---
History of Present Illness Date of Service: 01/06/22 Chief Complaint: Weakness, dizziness A 56 years old lady with PMH of CKD stage 3, HTN, diabetes, hypothyroidism, anxiety among others who presents to the hospital complaining of 1 week of weakness and dizziness. She reported this has been gradually getting worse associated with some nausea as she was started on oral antibiotic of Augmentin for a wound in her ankle. This morning she was unable to stand up and she felt very weak and almost fell but she slid down. denies any fever, chills. In the emergency she was found to have creatinine of 6 from unknown baseline but CKD 3 according the patient associated with lactic acidosis. Admitted for further evaluation and treatment. Review of Systems Review of Systems: No fever, chills but reports generalized weakness and dizziness No chest pain, palpitation No shortness of breath or coughing No abdominal pain, nausea or vomiting No urinary symptoms Wound in her right foot Yes all other systems are reviewed and are negative, unobtainable due to endotracheal tube, Unobtainable due to mental condition, Unobtainable due to mental status and Other [facility]LY [facility], [facility] Medical History CKD stage 3 secondary to diabetes Family History Other Hypertension Social History Household Members: Family Housing: House Do you presently have visiting nurse or other home services: No Patient Tobacco Use Status: Never used Tobacco Use of substances other than those prescribed or required for medical reasons: No Currently Displaying Signs/Symptoms of Drug Intoxication Withdrawal: No Have you been hit, kicked, punched, or otherwise hurt by someone within the past year? If so, by whom?: No Do you feel safe in your current relationship?: Yes Is there a partner from a previous relationship who is making you feel unsafe now?: No Are you made to feel afraid or neglected: No Advance Directives: No Advance Directives Information Provided: No Do you have thoughts of harming others: None Do you have a plan to hurt others: No Plan Recently lost weight without trying: No How much weight loss: Not applicable Eating poorly because of decreased appetite: No Nutrition screen score: 0 Nutrition Risks: No Nutritional Risk Patient : No : No Poor oral hygiene: No service: No Current occupational status: disabled Meds Allergies Allergy/AdvReac Type Severity Reaction Status Date / Time No Known Allergies Allergy Verified 01/07/22 10:39 Active Medications: Current Medications Vancomycin HCl 2,000 mg/ (Sodium Chloride) 540 mls @ 270 mls/hr IV ONCE ONE Stop: 01/06/22 17:59 Last Admin: 01/06/22 16:15 Dose: 270 mls/hr Documented by: Pharmacy Consult (Consult Rx Vancomycin Dosing) 1 each MISCELLANE DAILY PRN PRN Reason: Consult order Home Medications Medication Instructions Recorded Confirmed Last Taken Type albuterol sulfate 90 mcg/actuation 2 puff INHALATION Q6H PRN 01/06/22 01/06/22 Unknown History aerosol inhaler amoxicillin 500 mg-potassium 1 tab PO Q12H 01/06/22 01/06/22 Unknown History clavulanate 125 mg tablet atorvastatin 80 mg tablet 1 tab PO DAILY 01/06/22 01/06/22 Unknown History bupropion HCl 150 mg 24 hr tablet, 1 tab PO DAILY 01/06/22 01/06/22 Unknown History extended release bupropion HCl 300 mg 24 hr tablet, 1 tab PO DAILY 01/06/22 01/06/22 Unknown History extended release citalopram 10 mg tablet 1 tab PO DAILY 01/06/22 01/06/22 Unknown History clonidine HCl 0.1 mg tablet 2 tab PO BEDTIME 01/06/22 01/06/22 Unknown History diltiazem HCl 180 mg 1 cap PO DAILY 01/06/22 01/06/22 Unknown History capsule,extended release 24 hr, controlled (DILT-XR) dulaglutide 1.5 mg/0.5 mL 0.5 ml SUBCUT QWEEK 01/06/22 01/06/22 Unknown History subcutaneous pen injector (Trulicity) ezetimibe 10 mg tablet 1 tab PO DAILY 01/06/22 01/06/22 Unknown History gabapentin 300 mg capsule 1 cap PO DAILY PRN 01/06/22 01/06/22 Unknown History hydrochlorothiazide 25 mg tablet 1 tab PO DAILY 01/06/22 01/06/22 Unknown History lamotrigine 100 mg tablet 1 tab PO DAILY 01/06/22 01/06/22 Unknown History latanoprost 0.005 % eye drops 1 drp OPHTHALMIC (EYE) BEDTIME 01/06/22 01/06/22 Unknown History levothyroxine 125 mcg tablet 1 tab PO QAM 01/06/22 01/06/22 Unknown History lisinopril 30 mg tablet 1 tab PO DAILY 01/06/22 01/06/22 Unknown History metformin 1,000 mg tablet 1 tab PO BID 01/06/22 01/06/22 Unknown History trazodone 50 mg tablet 1.5 tab PO BEDTIME 01/06/22 01/06/22 Unknown History Physical Exam Vital Signs and Narrative: Vital Signs: Last Vital Signs Temp 98.4 F 01/06/22 13:57 Pulse 60 01/06/22 16:13 Resp 11 L 01/06/22 16:13 BP 96/46 L 01/06/22 17:12 Pulse Ox 99 01/06/22 15:08 BMI result Body Mass Index 48.0 Const: Other: Constitutional : Alert, oriented, not in distress Neck : Normal inspection, Supple Cardiovascular : RRR, S1 S2, no lower extremity edema Respiratory : Good bilateral air entry, no crackles, wheezes or rhonchi Gastrointestinal: soft, lax, Normal bowel sounds, Non tender Skin : Callus in the right foot with mild ulceration, no clear surrounding erythema or drainage. Neurological : Alert & oriented x3, No focal deficit Results Labs CBC and Chem 7: 01/07/22 06:41 01/07/22 06:41 Labs: Laboratory Results - last 24 hr 01/06/22 01/06/22 01/06/22 12:21 12:21 12:21 MCV 90.7 MCH 31.0 MCHC 34.2 RDW 12.5 Plt Count 473 H MPV 8.8 L Immature Gran % (Auto) 0.4 Neut % (Auto) 41.1 L Lymph % (Auto) 46.6 H [place] % (Auto) 9.8 Eos % (Auto) 1.7 Baso % (Auto) 0.4 Lymph # (Auto) 6.5 H [place] # (Auto) 1.4 H Eos # (Auto) 0.2 Baso # (Auto) 0.1 Abs Immat Gran (auto) 0.05 H Absolute Neuts (auto) 5.7 Absolute Nucleated RBC 0.000 Nucleated RBC % (auto) 0.0 Smear Tech's Comments VERIFIED Anion Gap 19 Estim Creat Clear Calc 13.3 Estimated GFR 7 Random Glucose 139 H Lactic Acid Calcium 9.2 Magnesium 1.7 Total Bilirubin 0.4 AST 13 ALT 17 Alkaline Phosphatase 84 Total Protein 7.5 Albumin 4.2 Urine Color Urine Appearance Urine pH Ur Specific [place] Urine Protein Urine Glucose (UA) Urine Ketones Urine Blood Urine Nitrite Ur Leukocyte Esterase COVID-19 (DUSTIN) Negative COVID-19 Clin Com See Note 01/06/22 01/06/22 12:54 14:07 MCV MCH MCHC RDW Plt Count MPV Immature Gran % (Auto) Neut % (Auto) Lymph % (Auto) [place] % (Auto) Eos % (Auto) Baso % (Auto) Lymph # (Auto) [place] # (Auto) Eos # (Auto) Baso # (Auto) Abs Immat Gran (auto) Absolute Neuts (auto) Absolute Nucleated RBC Nucleated RBC % (auto) Smear Tech's Comments Anion Gap Estim Creat Clear Calc Estimated GFR Random Glucose Lactic Acid 2.7 H* Calcium Magnesium Total Bilirubin AST ALT Alkaline Phosphatase Total Protein Albumin Urine Color YELLOW Urine Appearance HAZY Urine pH 5.5 Ur Specific [place] >= 1.030 H Urine Protein TRACE Urine Glucose (UA) NEG Urine Ketones 5 Urine Blood NEG Urine Nitrite NEG Ur Leukocyte Esterase NEG COVID-19 (DUSTIN) COVID-19 Clin Com Imaging Radiologist's Impressions: Impressions Chest X-Ray 01/06/22 12:50 IMPRESSION: No acute pulmonary finding. Head CT 01/06/22 13:23 IMPRESSION: No acute intracranial pathology. Abdomen/Pelvis CT 01/06/22 14:44 IMPRESSION: No acute abnormality CT scan abdomen pelvis. Fleischner guidelines were followed. Assessment and Plan (1) Acute renal failure superimposed on chronic kidney disease: Status: Acute (2) Dehydration: Status: Acute (3) Lactic acidosis: Status: Acute Plan A 56 years old lady with PMH of CKD stage 3, HTN, diabetes, hypothyroidism, anxiety among others who presents to the hospital complaining of 1 week of weakness and dizziness. Darnell I on CKD stage 3 We do not have readings of her previous creatinine Seems ATN not prerenal likely from home medications and low blood pressure Check urine sodium and creatinine Gentle hydration for now Avoid nephrotoxic medications To get Nephrology evaluation Monitor intake and output and BMP Dizziness, fall Secondary to hypotension likely from blood pressure medications Hold blood pressure medications for now Hydration Physical therapy Lactic acidosis Secondary to metformin uses not due to sepsis Right foot infected callus Treated with antibiotics, no clear infection symptoms Get wound nurse evaluation Hold on further antibiotics for now Anxiety disorder Continue her home medications Type 2 diabetes Hold oral medications Start sliding scale insulin DVT PPX Heparin Quality Stroke Does the patient have a stroke diagnosis?: No VTE Prior VTE?: No VTE Risk Level:: Medical - moderate - high VTE Device Contraindication: Treatment Not Indicated VTE Drug Contraindication: N/A - Med Ordered
[2022-01-06 18:07] LABS: Lactic Acid 2.3 mmol/L (0.5-2.0)
--- NOTE | 2022-01-06 18:13 | PM.CNNEP ---
History of Present Illness Chief Complaint Chief complaint: Dizziness Weakness Review of Systems Review of Systems No fever, chills but reports generalized weakness and dizziness No chest pain, palpitation No shortness of breath or coughing No abdominal pain, nausea or vomiting No urinary symptoms Wound in her right foot PMFSH Past Medical History Medical History CKD stage 3 secondary to diabetes Family History Family History Other Hypertension Social History Social History Advance Directives: No Advance Directives Information Provided: No Meds Allergies Allergy/AdvReac Type Severity Reaction Status Date / Time No Known Allergies Allergy Mild NONE Unverified 08/13/20 16:59 N.K.D.A. Allergy Unknown Uncoded 06/09/17 00:00 Active Medications: Current Medications Acetaminophen (Acetaminophen 325 Mg Tablet) 650 mg PO Q6H PRN PRN Reason: Pain, Mild (Pain Scale 1-3) Heparin Sodium (Porcine) (Heparin Sodium,Porcine 5,000 Unit/Ml Vial) 5,000 unit SUBCUT Q12H RAJENDRA Sodium Chloride (Ns) 1,000 mls @ 100 mls/hr IVCONT .Q10H RAJENDRA Insulin Human Lispro (Insulin Lispro 100 Unit/Ml 3 Ml Vial) 0 unit SUBCUT QIDACHS [facility]; Protocol Ondansetron HCl (Ondansetron Hcl 4 Mg/2 Ml Vial) 4 mg IVPUSH Q8H PRN PRN Reason: Nausea and Vomiting Pharmacy Consult (Consult Rx Vancomycin Dosing) 1 each MISCELLANE DAILY PRN PRN Reason: Consult order Sodium Chloride (0.9 % Sodium Chloride Flush 3 Ml Syringe) 3 ml IVFLUSH QSHIFT [facility] Home Medications Medication Instructions Recorded Confirmed Last Taken Type albuterol sulfate 90 mcg/actuation 2 puff INHALATION Q6H PRN 01/06/22 Unknown History aerosol inhaler atorvastatin 80 mg tablet 1 tab PO DAILY 01/06/22 Unknown History bupropion HCl 150 mg 24 hr tablet, 1 tab PO DAILY 01/06/22 Unknown History extended release bupropion HCl 300 mg 24 hr tablet, 1 tab PO DAILY 01/06/22 Unknown History extended release citalopram 10 mg tablet 1 tab PO DAILY 01/06/22 Unknown History clonidine HCl 0.1 mg tablet 2 tab PO BEDTIME 01/06/22 Unknown History diltiazem HCl 180 mg 1 cap PO DAILY 01/06/22 Unknown History capsule,extended release 24 hr, controlled (DILT-XR) dulaglutide 1.5 mg/0.5 mL 0.5 ml SUBCUT QWEEK 01/06/22 Unknown History subcutaneous pen injector (Trulicity) ezetimibe 10 mg tablet 1 tab PO DAILY 01/06/22 Unknown History gabapentin 300 mg capsule 1 cap PO DAILY PRN 01/06/22 Unknown History hydrochlorothiazide 25 mg tablet 1 tab PO DAILY 01/06/22 Unknown History lamotrigine 100 mg tablet 1 tab PO DAILY 01/06/22 Unknown History latanoprost 0.005 % eye drops 1 drp OPHTHALMIC (EYE) BEDTIME 01/06/22 Unknown History levothyroxine 125 mcg tablet 1 tab PO QAM 01/06/22 Unknown History lisinopril 30 mg tablet 1 tab PO DAILY 01/06/22 Unknown History metformin 1,000 mg tablet 1 tab PO BID 01/06/22 Unknown History trazodone 50 mg tablet 1.5 tab PO BEDTIME 01/06/22 Unknown History Physical Exam Vital Signs: Last Vital Signs Temp 98.4 F 01/06/22 13:57 Pulse 60 01/06/22 16:13 Resp 11 L 01/06/22 16:13 BP 96/46 L 01/06/22 17:12 Pulse Ox 99 01/06/22 15:08 BMI result Body Mass Index 48.0 Const Other: Constitutional : Alert, oriented, not in distress Neck : Normal inspection, Supple Cardiovascular : RRR, S1 S2, no lower extremity edema Respiratory : Good bilateral air entry, no crackles, wheezes or rhonchi Gastrointestinal: soft, lax, Normal bowel sounds, Non tender Skin : Callus in the right foot with mild ulceration, no clear surrounding erythema or drainage. Neurological : Alert & oriented x3, No focal deficit Results Lab Results Result Diagrams: 01/06/22 12:21 01/06/22 12:21 Lab results: Chemistry 01/06/22 12:21 Sodium 132 L Potassium 5.4 H Carbon Dioxide 22 BUN 61 H Creatinine 6.13 H* Calcium 9.2 Hematology 01/06/22 12:21 WBC 13.8 H Hgb 10.7 L Plt Count 473 H Urinalysis 01/06/22 14:07 Urine Color YELLOW Urine Appearance HAZY Urine pH 5.5 Ur Specific [place] >= 1.030 H Urine Protein TRACE Urine Glucose (UA) NEG Urine Ketones 5 Urine Blood NEG Urine Nitrite NEG Ur Leukocyte Esterase NEG Assessment and Plan (1) Acute renal failure superimposed on chronic kidney disease: Status: Acute (2) Dehydration: Status: Acute (3) Lactic acidosis: Status: Acute Plan A 56 years old lady with PMH of CKD stage 3, HTN, diabetes, hypothyroidism, anxiety among others who presents to the hospital complaining of 1 week of weakness and dizziness. JEANNIE on CKD stage 3 she cameing'pao
[2022-01-06 18:33] LABS: Creatinine Urine 316.28 mg/dL; Sodium Urine Random < 20.0 mmol/L
[2022-01-06] MEDS: 0.9 % Sodium Chloride 1,000 ML 100 ML IVCONT (18:37)
[2022-01-06] MEDS: Heparin Sodium,Porcine 5,000 UNIT/ML VIAL 5000 UNIT SUBCUT (18:38)
--- NOTE | 2022-01-06 18:51 | PHA.MEDREC ---
Pharmacy Consult ? Medication Reconciliation Pharmacy has completed the medication reconciliation. Spoke with the patient, she states she didn't take any medications today.
[2022-01-06 19:41] LABS: Reflex Lactate? Lactic Acid Added
[2022-01-06 20:17] LABS: ~Lactic Acid-LAB USE ONLY 2.4 mmol/L (0.5-2.0)
[2022-01-06 21:02] LABS: Reflex Lactate? 2 Y
[2022-01-06 21:22] LABS: Glucose, Whole Blood 139 mg/dL (60-115)
[2022-01-06 21:50] LABS: ~Lactic Acid-LAB USE ONLY 2.2 mmol/L (0.5-2.0)
[2022-01-07] VITALS (8 sets, daily range): BP systolic 120–184; BP diastolic 55–82; PULSE 66–80; RESP 14–20; TEMP 36.2–36.7; O2SAT 95–100
[2022-01-07] MEDS: 0.9 % Sodium Chloride 1,000 ML 100 ML IVCONT ×3 (04:28→23:28)
[2022-01-07] MEDS: Heparin Sodium,Porcine 5,000 UNIT/ML VIAL 5000 UNIT SUBCUT ×2 (04:28→17:22)
--- NOTE | 2022-01-07 05:10 | PC.NURSE ---
pt high fall risk per policy d/t fall at home, pt alert and oriented, states she is feeling better and requesting not to have bed alarm. pt states she feels she can responsibly get up to the commode and asses if she needs help or not. This Rn educated pt about high fall risk protocol and measures to keep her safe. pt understands but continues to request bed alarm be off at this time. bed alarm left off. commode at bedside
[2022-01-07 07:02] LABS: Hematocrit 28.5 % (37.0-47.0); Hemoglobin 9.5 g/dl (12.0-16.0); Mean Corpuscular HGB Conc 33.3 g/dl (31.0-35.0); Mean Corpuscular Hemoglobin 30.8 pg (27.0-33.0); Mean Corpuscular Volume 92.5 fL (80.0-98.0); Platelet Count 378 X10*3/uL (160-400); Red Blood Count 3.08 X10*6/uL (4.20-5.50); Red Cell Distribution Width 12.7 % (11.0-16.0)
[2022-01-07 07:22] LABS: Anion Gap 12 (12-20); Blood Urea Nitrogen 47 mg/dL (9-16); Calcium 8.2 mg/dL (8.4-10.2); Carbon Dioxide 23 mmol/L (22-29); Chloride 108 mmol/L (96-108); Creatinine Clr Calc Pharmacy 26.4; Estimated Glomerular Filt Rate 15; Glucose Random 129 mg/dL (60-115); Potassium 5.4 mmol/L (3.3-5.1); Sodium 138 mmol/L (135-145)
--- NOTE | 2022-01-07 08:17 | MHC.CDI.CONC ---
CDI Concurrent Query Documentation Clarification: PHYSICIAN'S DOCUMENTATION REQUEST Date of Query: 01/07/2218 Patient Name: Rhona Oshea Admit Date: 01/06/22 Dear Doctor, A review of the medical record indicates additional documentation may be needed. Please review below and update the documentation accordingly. Risk Factors/Clinical Indicators/Treatments Lab findings: potassium 5.4 H Based on the above, could you clarify in the Progress Notes the appropriate diagnosis, if significant, that supports the above abnormalities and additional evaluation, monitoring, and/or treatment rendered: Hyperkalemia or other etiology of findings Labs indicate a diagnosis of (please specify) Other (please specify) Unable to determine Use of terms such as suspected, likely, concern for, or probable (associated with a specific diagnosis that is being evaluated, monitored, or treated as if it exists) are acceptable and can be coded in the inpatient setting, when documented at the time of discharge. Thank you, Alessandra Kearns [facility], CDIS Extension: [phone] Please use your independent medical judgment in providing your response. THIS QUERY IS PART OF THE PERMANENT MEDICAL RECORD Provider Response: Other Other Diagnosis: Hyperkalemia
--- NOTE | 2022-01-07 08:37 | MHC.CM.PN ---
CM met with Patient at bedside and addressed IMM with her, providing her with the original and placing a copy on the chart. Patient lives in an apartment with her , who has early Alzheimer's and she is his Caregiver, and her 25 year old Son. Home/no services is the goal for dc and CM has initiated and will follow for dc planning. Patient has received Pfizer X 3 Covid vax and PCP is Dr. Lakeisha Hernández.
[2022-01-07 08:57] LABS: Glucose, Whole Blood 167 mg/dL (60-115)
[2022-01-07] MEDS: buPROPion HCl XL 150 MG TAB.ER.24H PO (09:41)
[2022-01-07] MEDS: Levothyroxine Sodium 125 MCG TABLET PO (09:42)
[2022-01-07] MEDS: 0.9 % Sodium Chloride Flush 3 ML SYRINGE IVFLUSH ×3 (09:42→21:22)
[2022-01-07] MEDS: dilTIAZem HCL CD 180 MG CAP.ER.24H PO (09:42)
[2022-01-07] MEDS: Ezetimibe 10 MG TABLET PO (09:42)
[2022-01-07] MEDS: lamoTRIgine 100 MG TABLET PO (09:42)
[2022-01-07] MEDS: Insulin Lispro 100 UNIT/ML 3 ML VIAL SUBCUT ×2 (09:42→13:00)
[2022-01-07] MEDS: Sodium Zirconium Cyclosilicate 5 GM POWD.PACK PO (11:09)
[2022-01-07 11:44] LABS: Glucose, Whole Blood 159 mg/dL (60-115)
--- NOTE | 2022-01-07 11:52 | PC.NURSE ---
Skin/Wound assessment completed today. Patient has a diabetic ulcer to right foot. Some detached callous removed from wound area. EPC barrier cream applied to edges, silver alginate applied to wound bed covered with non woven gauze and roll gauze. No other skin issues noted at this time.
--- NOTE | 2022-01-07 12:00 | HO.PM.IMPN ---
Subjective Subjective Date of Service: 01/07/22 Interval History: the patient was seen and evaluated this morning Laying in bed, feels significant improvement Dizziness decreased Denies any fever, chills or chest pain No reported other overnight events. Review of Systems No fever, chills but reports generalized weakness and dizziness No chest pain, palpitation No shortness of breath or coughing No abdominal pain, nausea or vomiting No urinary symptoms Wound in her right foot Physical Exam Vital Signs: Vital Signs: Last Vital Signs Temp 98.0 F 01/07/22 11:30 Pulse 78 01/07/22 11:30 Resp 18 01/07/22 11:30 BP 126/60 01/07/22 11:30 Pulse Ox 95 01/07/22 11:30 BMI result Body Mass Index 48.0 Const: Other: Constitutional : Alert, oriented, not in distress Neck : Normal inspection, Supple Cardiovascular : RRR, S1 S2, no lower extremity edema Respiratory : Good bilateral air entry, no crackles, wheezes or rhonchi Gastrointestinal: soft, lax, Normal bowel sounds, Non tender Skin : Callus in the right foot with mild ulceration, no clear surrounding erythema or drainage. Neurological : Alert & oriented x3, No focal deficit Objective Data Active Medications Acetaminophen (Acetaminophen 325 Mg Tablet) 650 mg PO Q6H PRN PRN Reason: Pain, Mild (Pain Scale 1-3) Atorvastatin Calcium (Atorvastatin Calcium 80 Mg Tablet) 80 mg PO BEDTIME PENDING SALE TO [facility] Bupropion HCl (Bupropion Hcl Xl 150 Mg Tab.Er.24h) 150 mg PO DAILY [facility] Last Admin: 01/07/22 09:41 Dose: 150 mg Documented by: IGNACIA Diltiazem HCl (Diltiazem Hcl Cd 180 Mg Cap.Er.24h) 180 mg PO DAILY [facility]; Protocol Last Admin: 01/07/22 09:42 Dose: 180 mg Documented by: IGNACIA Ezetimibe (Ezetimibe 10 Mg Tablet) 10 mg PO DAILY [facility] Last Admin: 01/07/22 09:42 Dose: 10 mg Documented by: IGNACIA Heparin Sodium (Porcine) (Heparin Sodium,Porcine 5,000 Unit/Ml Vial) 5,000 unit SUBCUT Q12H [facility] Last Admin: 01/07/22 04:28 Dose: 5,000 unit Documented by: SHRUTHI Sodium Chloride (Ns) 1,000 mls @ 100 mls/hr IVCONT .Q10H [facility]END[facility] Last Admin: 01/07/22 04:28 Dose: 100 mls/hr Documented by: SHRUTHI Insulin Human Lispro (Insulin Lispro 100 Unit/Ml 3 Ml Vial) 0 unit SUBCUT QIDACHS [facility]; Protocol Last Admin: 01/07/22 09:42 Dose: 2 unit Documented by: IGNACIA Lamotrigine (Lamotrigine 100 Mg Tablet) 100 mg PO DAILY [facility]END[facility]ALE [facility] Last Admin: 01/07/22 09:42 Dose: 100 mg Documented by: IGNACIA Latanoprost (Latanoprost 0.005 % Ophth Nati 2.5 Ml Drops) 1 drop EYE-BOTH BEDTIME [facility]ENDING SALE TO [facility] Levothyroxine Sodium (Levothyroxine Sodium 125 Mcg Tablet) 125 mcg PO DAILY@0600 PENDING SALE TO [facility] Last Admin: 01/07/22 09:42 Dose: 125 mcg Documented by: IGNACIA Ondansetron HCl (Ondansetron Hcl 4 Mg/2 Ml Vial) 4 mg IVPUSH Q8H PRN PRN Reason: Nausea and Vomiting Pharmacy Consult (Consult Rx Vancomycin Dosing) 1 each MISCELLANE DAILY PRN PRN Reason: Consult order Sodium Chloride (0.9 % Sodium Chloride Flush 3 Ml Syringe) 3 ml IVFLUSH QSHIFT [facility] Last Admin: 01/07/22 09:42 Dose: 3 ml Documented by: IGNACIA Trazodone HCl (Trazodone Hcl 25 Mg Halftab) 75 mg PO BEDTIME PENDING SALE TO [facility] Labs CBC & Chem 7: 01/07/22 06:41 01/07/22 06:41 Labs: Laboratory Results - last 24 hr 01/06/22 01/06/22 01/06/22 12:21 12:21 12:21 MCV 90.7 MCH 31.0 MCHC 34.2 RDW 12.5 Plt Count 473 H MPV 8.8 L Immature Gran % (Auto) 0.4 Neut % (Auto) 41.1 L Lymph % (Auto) 46.6 H [place] % (Auto) 9.8 Eos % (Auto) 1.7 Baso % (Auto) 0.4 Lymph # (Auto) 6.5 H [place] # (Auto) 1.4 H Eos # (Auto) 0.2 Baso # (Auto) 0.1 Abs Immat Gran (auto) 0.05 H Absolute Neuts (auto) 5.7 Absolute Nucleated RBC 0.000 Nucleated RBC % (auto) 0.0 Smear Tech's Comments VERIFIED Anion Gap 19 Estim Creat Clear Calc 13.3 Estimated GFR 7 POC Glucose Random Glucose 139 H Lactic Acid Lactic Acid F/U @ 2Hr Lactic Acid F/U @ 4Hr Calcium 9.2 Magnesium 1.7 Total Bilirubin 0.4 AST 13 ALT 17 Alkaline Phosphatase 84 Total Protein 7.5 Albumin 4.2 Urine Color Urine Appearance Urine pH Ur Specific [place] Urine Protein Urine Glucose (UA) Urine Ketones Urine Blood Urine Nitrite Ur Leukocyte Esterase Ur Random Sodium Urine Creatinine COVID-19 (DUSTIN) Negative COVID-19 Clin Com See Note 01/06/22 01/06/22 01/06/22 12:54 14:07 14:07 MCV MCH MCHC RDW Plt Count MPV Immature Gran % (Auto) Neut % (Auto) Lymph % (Auto) [place] % (Auto) Eos % (Auto) Baso % (Auto) Lymph # (Auto) [place] # (Auto) Eos # (Auto) Baso # (Auto) Abs Immat Gran (auto) Absolute Neuts (auto) Absolute Nucleated RBC Nucleated RBC % (auto) Smear Tech's Comments Anion Gap Estim Creat Clear Calc Estimated GFR POC Glucose Random Glucose Lactic Acid 2.7 H* Lactic Acid F/U @ 2Hr Lactic Acid F/U @ 4Hr Calcium Magnesium Total Bilirubin AST ALT Alkaline Phosphatase Total Protein Albumin Urine Color YELLOW Urine Appearance HAZY Urine pH 5.5 Ur Specific [place] >= 1.030 H Urine Protein TRACE Urine Glucose (UA) NEG Urine Ketones 5 Urine Blood NEG Urine Nitrite NEG Ur Leukocyte Esterase NEG Ur Random Sodium < 20.0 Urine Creatinine 316.28 COVID-19 (DUSTIN) COVID-[employer] Clin Com 01/06/22 01/06/22 01/06/22 17:36 18:39 19:56 MCV MCH MCHC RDW Plt Count MPV Immature Gran % (Auto) Neut % (Auto) Lymph % (Auto) [place] % (Auto) Eos % (Auto) Baso % (Auto) Lymph # (Auto) [place] # (Auto) Eos # (Auto) Baso # (Auto) Abs Immat Gran (auto) Absolute Neuts (auto) Absolute Nucleated RBC Nucleated RBC % (auto) Smear Tech's Comments Anion Gap Estim Creat Clear Calc Estimated GFR POC Glucose Random Glucose Lactic Acid 2.3 H* Lactic Acid F/U @ 2Hr 2.4 H* Cancelled Lactic Acid F/U @ 4Hr Calcium Magnesium Total Bilirubin AST ALT Alkaline Phosphatase Total Protein Albumin Urine Color Urine Appearance Urine pH Ur Specific [place] Urine Protein Urine Glucose (UA) Urine Ketones Urine Blood Urine Nitrite Ur Leukocyte Esterase Ur Random Sodium Urine Creatinine COVID-19 (DUSTIN) COVID-19 [employer] 01/06/22 01/06/22 01/07/22 21:15 21:22 06:41 MCV 92.5 MCH 30.8 MCHC 33.3 RDW 12.7 Plt Count 378 MPV 9.0 L Immature Gran % (Auto) Neut % (Auto) Lymph % (Auto) [place] % (Auto) Eos % (Auto) Baso % (Auto) Lymph # (Auto) [place] # (Auto) Eos # (Auto) Baso # (Auto) Abs Immat Gran (auto) Absolute Neuts (auto) Absolute Nucleated RBC 0.000 Nucleated RBC % (auto) 0.0 Smear Tech's Comments Anion Gap Estim Creat Clear Calc Estimated GFR POC Glucose 139 H Random Glucose Lactic Acid Lactic Acid F/U @ 2Hr Lactic Acid F/U @ 4Hr 2.2 H* Calcium Magnesium Total Bilirubin AST ALT Alkaline Phosphatase Total Protein Albumin Urine Color Urine Appearance Urine pH Ur Specific [place] Urine Protein Urine Glucose (UA) Urine Ketones Urine Blood Urine Nitrite Ur Leukocyte Esterase Ur Random Sodium Urine Creatinine COVID-19 (DUSTIN) COVID-19 [employer] 01/07/22 01/07/22 01/07/22 06:41 08:54 11:33 MCV MCH MCHC RDW Plt Count MPV Immature Gran % (Auto) Neut % (Auto) Lymph % (Auto) [place] % (Auto) Eos % (Auto) Baso % (Auto) Lymph # (Auto) [place] # (Auto) Eos # (Auto) Baso # (Auto) Abs Immat Gran (auto) Absolute Neuts (auto) Absolute Nucleated RBC Nucleated RBC % (auto) Smear Tech's Comments Anion Gap 12 Estim Creat Clear Calc 26.4 Estimated GFR 15 POC Glucose 167 H 159 H Random Glucose 129 H Lactic Acid Lactic Acid F/U @ 2Hr Lactic Acid F/U @ 4Hr Calcium 8.2 L D Magnesium Total Bilirubin AST ALT Alkaline Phosphatase Total Protein Albumin Urine Color Urine Appearance Urine pH Ur Specific [place] Urine Protein Urine Glucose (UA) Urine Ketones Urine Blood Urine Nitrite Ur Leukocyte Esterase Ur Random Sodium Urine Creatinine COVID-19 (DUSTIN) COVID-19 Clin Com Assessment and Plan (1) Hyperkalemia: Status: Acute (2) Lactic acidosis: Status: Acute (3) Acute renal failure superimposed on chronic kidney disease: Status: Acute (4) Dehydration: Status: Acute Plan A 56 years old lady with PMH of CKD stage 3, HTN, diabetes, hypothyroidism, anxiety among others who presents to the hospital complaining of 1 week of weakness and dizziness. Darnell I on CKD stage 3 No readings of her previous creatinine Creatinine improved to 3 from 6 at time of presentation Seems mixed prerenal and ATN from home medications and low blood pressure Low urine sodium and creatinine Gentle hydration for now Avoid nephrotoxic medications Pending Nephrology evaluation Monitor intake and output and BMP Dizziness, fall Improved Secondary to hypotension likely from blood pressure medications Hold blood pressure medications for now Hydration Physical therapy Hyperkalemia Potassium of 5.4 To give Lokelma Monitor BMP Lactic acidosis Secondary to metformin uses not due to sepsis Right foot infected callus Treated with antibiotics, no clear infection symptoms Get wound nurse evaluation Hold on further antibiotics for now Anxiety disorder Continue her home medications Type 2 diabetes Hold oral medications Start sliding scale insulin DVT PPX Heparin Quality Stroke Does the patient have a stroke diagnosis?: No VTE Prior VTE?: No VTE Risk Level:: Medical - moderate - high VTE Device Contraindication: Treatment Not Indicated VTE Drug Contraindication: N/A - Med Ordered
--- NOTE | 2022-01-07 12:08 | P.CDIC_ITS ---
CDI Concurrent Query Documentation Clarification: PHYSICIAN'S DOCUMENTATION REQUEST Date of Query: 01/07/22 1208 Patient Name: Rhona Oshea Admit Date: 01/06/22 Dear Doctor, A review of the medical record indicates additional documentation may be needed. Please review below and update the documentation accordingly. Risk Factors/Clinical Indicators/Treatments Body Mass Index: 48.1 5' 4 If possible, please provide an associated diagnosis related to the abnormal BMI, such as: For a BMI >= 40: * Overweight * Obesity * Due to excess calories * Drug induced * Due to other cause * Severe or Morbid Obesity Or: * BMI is not significant * Other (please specify) * Unable to determine Use of terms such as suspected, likely, concern for, or probable (associated with a specific diagnosis that is being evaluated, monitored, or treated as if it exists) are acceptable and can be coded in the inpatient setting, when documented at the time of discharge. Thank you, Alessandra Kearns [facility], CDIS Extension: [phone] Please use your independent medical judgment in providing your response. THIS QUERY IS PART OF THE PERMANENT MEDICAL RECORD Provider Response: Morbid Obesity
--- NOTE | 2022-01-07 12:08 | MHC.CDI.CONC ---
CDI Concurrent Query Documentation Clarification: PHYSICIAN'S DOCUMENTATION REQUEST Date of Query: 01/07/22 1208 Patient Name: Rhona Oshea Admit Date: 01/06/22 Dear Doctor, A review of the medical record indicates additional documentation may be needed. Please review below and update the documentation accordingly. Risk Factors/Clinical Indicators/Treatments Body Mass Index: 48.1 5' 4 If possible, please provide an associated diagnosis related to the abnormal BMI, such as: For a BMI >= 40: Overweight Obesity Due to excess calories Drug induced Due to other cause Severe or Morbid Obesity Or: BMI is not significant Other (please specify) Unable to determine Use of terms such as suspected, likely, concern for, or probable (associated with a specific diagnosis that is being evaluated, monitored, or treated as if it exists) are acceptable and can be coded in the inpatient setting, when documented at the time of discharge. Thank you, Alessandra Kearns [facility], CDIS Extension: [phone] Please use your independent medical judgment in providing your response. THIS QUERY IS PART OF THE PERMANENT MEDICAL RECORD Provider Response: Morbid Obesity
[2022-01-07 16:53] LABS: Glucose, Whole Blood 140 mg/dL (60-115)
[2022-01-07] MEDS: Acetaminophen 325 MG TABLET 650 MG PO (17:26)
--- NOTE | 2022-01-07 17:44 | PM.CNNEP ---
History of Present Illness Reason for Consult Consult date: 01/07/22 Reason for consult: JEANNIE Chief Complaint Chief complaint: Dizziness Weakness History of Present Illness Narrative: A 56 years old lady with PMH of ?CKD stage 3, HTN, diabetes, hypothyroidism, anxiety among others who presents to the hospital complaining of 1 week of weakness and dizziness. She admits to ~ 4 days of progressive weakness. She has been nauseous these last 4 days. She vomited 2-3 times over the last 4 days, and had diarrhea once. She has a mild headache. Reported a fall prior to ED presentation when her legs gave out. She has a baseline left hand tremor that is worse today Her S-Cr initially on presentation was ~ 6.1 mg/dL with subsequent improvement to ~3.1 mg/dL following IVF administration. Noted to also have hyperkalemia in setting of jeannie. ROS otherwise negative. Review of Systems Review of Systems Yes all other systems are reviewed and are negative Constitutional: Reports as per HPI Cardiovascular: Reports as per HPI and Reports no additional cardiovascular complaints Respiratory: Reports as per HPI and Reports no additional respiratory complaints Gastrointestinal: Reports as per HPI and Reports no additional gastrointestinal complaints Genitourinary: Reports no additional female genitourinary complaints and Reports as per HPI PMFSH Past Medical History Medical History CKD stage 3 secondary to diabetes Family History Family History Other Hypertension Social History Social History Household Members: Family Housing: House Do you presently have visiting nurse or other home services: No Patient Tobacco Use Status: Never used Tobacco Use of substances other than those prescribed or required for medical reasons: No Currently Displaying Signs/Symptoms of Drug Intoxication Withdrawal: No Have you been hit, kicked, punched, or otherwise hurt by someone within the past year? If so, by whom?: No Do you feel safe in your current relationship?: Yes Is there a partner from a previous relationship who is making you feel unsafe now?: No Are you made to feel afraid or neglected: No Advance Directives: No Advance Directives Information Provided: No Do you have thoughts of harming others: None Do you have a plan to hurt others: No Plan Recently lost weight without trying: No How much weight loss: Not applicable Eating poorly because of decreased appetite: No Nutrition screen score: 0 Nutrition Risks: No Nutritional Risk Patient : No : No Poor oral hygiene: No service: No Current occupational status: disabled Meds Allergies Allergy/AdvReac Type Severity Reaction Status Date / Time No Known Allergies Allergy Verified 01/07/22 10:39 Active Medications: Current Medications Acetaminophen (Acetaminophen 325 Mg Tablet) 650 mg PO Q6H PRN PRN Reason: Pain, Mild (Pain Scale 1-3) Last Admin: 01/07/22 17:26 Dose: 650 mg Documented by: Atorvastatin Calcium (Atorvastatin Calcium 80 Mg Tablet) 80 mg PO BEDTIME [facility] Bupropion HCl (Bupropion Hcl Xl 150 Mg Tab.Er.24h) 150 mg PO DAILY [facility] Last Admin: 01/07/22 09:41 Dose: 150 mg Documented by: Diltiazem HCl (Diltiazem Hcl Cd 180 Mg Cap.Er.24h) 180 mg PO DAILY [facility]; Protocol Last Admin: 01/07/22 09:42 Dose: 180 mg Documented by: Ezetimibe (Ezetimibe 10 Mg Tablet) 10 mg PO DAILY [facility] Last Admin: 01/07/22 09:42 Dose: 10 mg Documented by: Heparin Sodium (Porcine) (Heparin Sodium,Porcine 5,000 Unit/Ml Vial) 5,000 unit SUBCUT Q12H [facility] Last Admin: 01/07/22 17:22 Dose: 5,000 unit Documented by: Sodium Chloride (Ns) 1,000 mls @ 100 mls/hr IVCONT .Q10H [facility] Last Admin: 01/07/22 14:36 Dose: 100 mls/hr Documented by: Insulin Human Lispro (Insulin Lispro 100 Unit/Ml 3 Ml Vial) 0 unit SUBCUT QIDACHS [facility]; Protocol Last Admin: 01/07/22 16:54 Dose: Not Given Documented by: Lamotrigine (Lamotrigine 100 Mg Tablet) 100 mg PO DAILY [facility] Last Admin: 01/07/22 09:42 Dose: 100 mg Documented by: Latanoprost (Latanoprost 0.005 % Ophth Nati 2.5 Ml Drops) 1 drop EYE-BOTH BEDTIME [facility] Levothyroxine Sodium (Levothyroxine Sodium 125 Mcg Tablet) 125 mcg PO DAILY@0600 [facility] Last Admin: 01/07/22 09:42 Dose: 125 mcg Documented by: Ondansetron HCl (Ondansetron Hcl 4 Mg/2 Ml Vial) 4 mg IVPUSH Q8H PRN PRN Reason: Nausea and Vomiting Pharmacy Consult (Consult Rx Vancomycin Dosing) 1 each MISCELLANE DAILY PRN PRN Reason: Consult order Sodium Chloride (0.9 % Sodium Chloride Flush 3 Ml Syringe) 3 ml IVFLUSH QSHIFT [facility] Last Admin: 01/07/22 17:22 Dose: 3 ml Documented by: Trazodone HCl (Trazodone Hcl 25 Mg Halftab) 75 mg PO BEDTIME [facility] Home Medications Medication Instructions Recorded Confirmed Last Taken Type albuterol sulfate 90 mcg/actuation 2 puff INHALATION Q6H PRN 01/06/22 01/06/22 Unknown History aerosol inhaler amoxicillin 500 mg-potassium 1 tab PO Q12H 01/06/22 01/06/22 Unknown History clavulanate 125 mg tablet atorvastatin 80 mg tablet 1 tab PO DAILY 01/06/22 01/06/22 Unknown History bupropion HCl 150 mg 24 hr tablet, 1 tab PO DAILY 01/06/22 01/06/22 Unknown History extended release bupropion HCl 300 mg 24 hr tablet, 1 tab PO DAILY 01/06/22 01/06/22 Unknown History extended release citalopram 10 mg tablet 1 tab PO DAILY 01/06/22 01/06/22 Unknown History clonidine HCl 0.1 mg tablet 2 tab PO BEDTIME 01/06/22 01/06/22 Unknown History diltiazem HCl 180 mg 1 cap PO DAILY 01/06/22 01/06/22 Unknown History capsule,extended release 24 hr, controlled (DILT-XR) dulaglutide 1.5 mg/0.5 mL 0.5 ml SUBCUT QWEEK 01/06/22 01/06/22 Unknown History subcutaneous pen injector (Trulicity) ezetimibe 10 mg tablet 1 tab PO DAILY 01/06/22 01/06/22 Unknown History gabapentin 300 mg capsule 1 cap PO DAILY PRN 01/06/22 01/06/22 Unknown History hydrochlorothiazide 25 mg tablet 1 tab PO DAILY 01/06/22 01/06/22 Unknown History lamotrigine 100 mg tablet 1 tab PO DAILY 01/06/22 01/06/22 Unknown History latanoprost 0.005 % eye drops 1 drp OPHTHALMIC (EYE) BEDTIME 01/06/22 01/06/22 Unknown History levothyroxine 125 mcg tablet 1 tab PO QAM 01/06/22 01/06/22 Unknown History lisinopril 30 mg tablet 1 tab PO DAILY 01/06/22 01/06/22 Unknown History metformin 1,000 mg tablet 1 tab PO BID 01/06/22 01/06/22 Unknown History trazodone 50 mg tablet 1.5 tab PO BEDTIME 01/06/22 01/06/22 Unknown History Physical Exam Vital Signs: Last Vital Signs Temp 97.8 F 01/07/22 15:49 Pulse 80 01/07/22 17:32 Resp 16 01/07/22 15:49 BP 145/66 H 01/07/22 17:32 Pulse Ox 97 01/07/22 15:49 BMI result Body Mass Index 48.0 Const General: cooperative and no acute distress Neck Neck: Yes trachea midline GI Auscultation: normal bowel sounds Extrem General: Yes normal to inspection Results Lab Results Result Diagrams: 01/07/22 06:41 01/07/22 06:41 Lab results: Chemistry 01/06/22 01/07/22 12:21 06:41 Sodium 132 L 138 Potassium 5.4 H 5.4 H Carbon Dioxide 22 23 BUN 61 H 47 H Creatinine 6.13 H* 3.10 H Calcium 9.2 8.2 L D Hematology 01/06/22 01/07/22 12:21 06:41 WBC 13.8 H 8.0 Hgb 10.7 L 9.5 L Plt Count 473 H 378 Urinalysis 01/06/22 14:07 Urine Color YELLOW Urine Appearance HAZY Urine pH 5.5 Ur Specific [place] >= 1.030 H Urine Protein TRACE Urine Glucose (UA) NEG Urine Ketones 5 Urine Blood NEG Urine Nitrite NEG Ur Leukocyte Esterase NEG Urine Studies 01/06/22 14:07 Urine Creatinine 316.28 Assessment and Plan (1) Acute kidney injury: Status: Acute Plan Problem List: JEANNIE in setting of CKD Hyperkalemia volume depletion #)JEANNIE on CKD: -Her S-Cr initially on presentation was ~ 6.1 mg/dL with subsequent improvement to ~3.1 mg/dL following IVF administration. Noted to also have hyperkalemia in setting of jeannie. -Monitor weights daily -CT abd/pelvis without evidence of nephrolithiasis or hydronephrosis. -monitor renal panel daily -I/O's bladder scan for noted oliguria/anuria -S-Cr improving with IVF's -Suggest gentle IVF hydration with NS x 500 cc. -DIstal Na delivery should help with hyperkalemia via kaliuresis. -agree with lokelma 5G bid until hyperkalemia resolves. -avoidance of nephrotoxic agents such as nsaids, acei/arb, contrast admin, renal dosing abx. -ccb for bp control until jeannie returns to [place] -Can help with outpatient follow up with nephrology following dc. Procedures Date of Service Date of Service: 01/07/22
[2022-01-07 20:56] LABS: Glucose, Whole Blood 139 mg/dL (60-115)
[2022-01-07] MEDS: Atorvastatin Calcium 80 MG TABLET PO (21:20)
[2022-01-07] MEDS: cloNIDine HCL 0.2 MG TABLET PO (21:20)
[2022-01-07] MEDS: traZODone HCL 25 MG HALFTAB 75 MG PO (21:21)
[2022-01-07] MEDS: Gabapentin 300 MG CAPSULE PO (21:24)
[2022-01-07] MEDS: Latanoprost 0.005 % Ophth Sol 2.5 ML DROPS 1 DROP EYE-BOTH (22:28)
[2022-01-08 03:47] VITALS: BP 145/65; PULSE 62; RESP 20; TEMP 36.6; O2SAT 98
[2022-01-08] MEDS: Levothyroxine Sodium 125 MCG TABLET PO (05:54)
[2022-01-08] MEDS: Heparin Sodium,Porcine 5,000 UNIT/ML VIAL 5000 UNIT SUBCUT ×2 (05:55→17:40)
[2022-01-08 07:19] LABS: Hematocrit 29.3 % (37.0-47.0); Hemoglobin 9.7 g/dl (12.0-16.0); Mean Corpuscular HGB Conc 33.1 g/dl (31.0-35.0); Mean Corpuscular Hemoglobin 31.1 pg (27.0-33.0); Mean Corpuscular Volume 93.9 fL (80.0-98.0); Mean Platelet Volume 9.1 fL (9.4-12.3); Platelet Count 412 X10*3/uL (160-400); Red Blood Count 3.12 X10*6/uL (4.20-5.50); Red Cell Distribution Width 12.8 % (11.0-16.0); White Blood Count 7.3 X10*3/uL (4.8-10.8)
[2022-01-08 07:48] VITALS: BP 173/78; PULSE 65; RESP 19; TEMP 35.8; O2SAT 96
[2022-01-08 08:02] LABS: Anion Gap 14 (12-20); Blood Urea Nitrogen 30 mg/dL (9-16); Calcium 9.2 mg/dL (8.4-10.2); Carbon Dioxide 24 mmol/L (22-29); Chloride 107 mmol/L (96-108); Creatinine Clr Calc Pharmacy 49.3; Estimated Glomerular Filt Rate 32; Glucose Random 155 mg/dL (60-115); Potassium 5.6 mmol/L (3.3-5.1); Sodium 139 mmol/L (135-145)
[2022-01-08 08:03] LABS: Glucose, Whole Blood 122 mg/dL (60-115)
[2022-01-08] MEDS: lamoTRIgine 100 MG TABLET PO (10:59)
[2022-01-08] MEDS: buPROPion HCl XL 150 MG TAB.ER.24H PO (10:59)
[2022-01-08] MEDS: dilTIAZem HCL CD 180 MG CAP.ER.24H PO (11:00)
[2022-01-08] MEDS: Sodium Zirconium Cyclosilicate 10 GM POWD.PACK PO ×2 (11:00→20:50)
[2022-01-08] MEDS: Ezetimibe 10 MG TABLET PO (11:00)
[2022-01-08] MEDS: 0.9 % Sodium Chloride Flush 3 ML SYRINGE IVFLUSH ×2 (11:00→20:51)
--- NOTE | 2022-01-08 11:29 | P.PNIM_ITS ---
Subjective Subjective Date of Service: 01/08/22 Interval History: the patient was seen and evaluated this morning Laying in bed, feels significant improvement Creatinine improved to 1.7 Denies any fever, chills or chest pain No reported other overnight events. Review of Systems No fever, chills but reports generalized weakness and dizziness No chest pain, palpitation No shortness of breath or coughing No abdominal pain, nausea or vomiting No urinary symptoms Wound in her right foot Physical Exam Vital Signs: Vital Signs: Last Vital Signs Temp 96.5 F L 01/08/22 07:48 Pulse 65 01/08/22 07:48 Resp 19 01/08/22 07:48 BP 173/78 H 01/08/22 07:48 Pulse Ox 96 01/08/22 07:48 BMI result Body Mass Index 48.0 Const: Other: Constitutional : Alert, oriented, not in distress Neck : Normal inspection, Supple Cardiovascular : RRR, S1 S2, no lower extremity edema Respiratory : Good bilateral air entry, no crackles, wheezes or rhonchi Gastrointestinal: soft, lax, Normal bowel sounds, Non tender Skin : Callus in the right foot with mild ulceration, no clear surrounding erythema or drainage. Neurological : Alert & oriented x3, No focal deficit Objective Data Active Medications Acetaminophen (Acetaminophen 325 Mg Tablet) 650 mg PO Q6H PRN PRN Reason: Pain, Mild (Pain Scale 1-3) Last Admin: 01/07/22 17:26 Dose: 650 mg Documented by: CESAR Atorvastatin Calcium (Atorvastatin Calcium 80 Mg Tablet) 80 mg PO BEDTIME [facility] Last Admin: 01/07/22 21:20 Dose: 80 mg Documented by: MARILIN Bupropion HCl (Bupropion Hcl Xl 150 Mg Tab.Er.24h) 150 mg PO DAILY [facility] Last Admin: 01/08/22 10:59 Dose: 150 mg Documented by: CESAR Clonidine HCl (Clonidine Hcl 0.2 Mg Tablet) 0.2 mg PO BEDTIME [facility]; Protocol Last Admin: 01/07/22 21:20 Dose: 0.2 mg Documented by: MARILIN Diltiazem HCl (Diltiazem Hcl Cd 180 Mg Cap.Er.24h) 180 mg PO DAILY [facility]; Protocol Last Admin: 01/08/22 11:00 Dose: 180 mg Documented by: CESAR Ezetimibe (Ezetimibe 10 Mg Tablet) 10 mg PO DAILY [facility] Last Admin: 01/08/22 11:00 Dose: 10 mg Documented by: CESAR Gabapentin (Gabapentin 300 Mg Capsule) 300 mg PO DAILY PRN PRN Reason: Pain, Severe (Pain Scale 7-10) Last Admin: 01/07/22 21:24 Dose: 300 mg Documented by: MARILIN Heparin Sodium (Porcine) (Heparin Sodium,Porcine 5,000 Unit/Ml Vial) 5,000 unit SUBCUT Q12H [facility] Last Admin: 01/08/22 05:55 Dose: 5,000 unit Documented by: MARILIN Insulin Human Lispro (Insulin Lispro 100 Unit/Ml 3 Ml Vial) 0 unit SUBCUT QIDACHS [facility]; Protocol Last Admin: 01/08/22 08:05 Dose: Not Given Documented by: CESAR Non-Admin Reason: No Insulin Coverage Lamotrigine (Lamotrigine 100 Mg Tablet) 100 mg PO DAILY [facility] Last Admin: 01/08/22 10:59 Dose: 100 mg Documented by: CESAR Latanoprost (Latanoprost 0.005 % Ophth Nati 2.5 Ml Drops) 1 drop EYE-BOTH BEDTIME [facility] Last Admin: 01/07/22 22:28 Dose: 1 drop Documented by: MARILIN Levothyroxine Sodium (Levothyroxine Sodium 125 Mcg Tablet) 125 mcg PO DAILY@0600 [facility] Last Admin: 01/08/22 05:54 Dose: 125 mcg Documented by: MARILIN Ondansetron HCl (Ondansetron Hcl 4 Mg/2 Ml Vial) 4 mg IVPUSH Q8H PRN PRN Reason: Nausea and Vomiting Pharmacy Consult (Consult Rx Vancomycin Dosing) 1 each MISCELLANE DAILY PRN PRN Reason: Consult order Sodium Chloride (0.9 % Sodium Chloride Flush 3 Ml Syringe) 3 ml IVFLUSH QSHIFT [facility] Last Admin: 01/08/22 11:00 Dose: 3 ml Documented by: CESAR Sodium Zirconium Cyclosilicate (Sodium Zirconium Cyclosilicate 10 Gm Powd.Pack) 10 gm PO BID [facility] Last Admin: 01/08/22 11:00 Dose: 10 gm Documented by: CESAR Trazodone HCl (Trazodone Hcl 25 Mg Halftab) 75 mg PO BEDTIME [facility] Last Admin: 01/07/22 21:21 Dose: 75 mg Documented by: MARILIN Labs CBC & Chem 7: 01/08/22 06:30 01/08/22 06:30 Labs: Laboratory Results - last 24 hr 01/07/22 01/07/22 01/07/22 11:33 16:37 20:35 MCV MCH MCHC RDW Plt Count MPV Absolute Nucleated RBC Nucleated RBC % (auto) Anion Gap Estim Creat Clear Calc Estimated GFR POC Glucose 159 H 140 H 139 H Random Glucose Calcium 01/08/22 01/08/22 01/08/22 06:30 06:30 07:52 MCV 93.9 MCH 31.1 MCHC 33.1 RDW 12.8 Plt Count 412 H MPV 9.1 L Absolute Nucleated RBC 0.000 Nucleated RBC % (auto) 0.0 Anion Gap 14 Estim Creat Clear Calc 49.3 Estimated GFR 32 POC Glucose 122 H Random Glucose 155 H Calcium 9.2 D Microbiology Microbiology Results: Microbiology 01/06/22 13:54 Blood Culture - Preliminary Blood - Venous No growth after 24 hours. 01/06/22 12:54 Blood Culture - Preliminary Blood - Venous No growth after 24 hours. Assessment and Plan (1) Hyperkalemia: Status: Acute (2) Acute renal failure superimposed on chronic kidney disease: Status: Acute Plan A 56 years old lady with PMH of CKD stage 3, HTN, diabetes, hypothyroidism, anxiety among others who presents to the hospital complaining of 1 week of weakness and dizziness. Darnell I on CKD stage 3 No readings of her previous creatinine Creatinine improved to 1.7 from 6 at time of presentation Low urine sodium and creatinine Discontinue IVF Avoid nephrotoxic medications Nephrology input appreciated Monitor intake and output and BMP Dizziness, fall Improved Secondary to hypotension likely from blood pressure medications Physical therapy Hyperkalemia Potassium of 5.4 To give Lokelma Monitor BMP Lactic acidosis Secondary to metformin uses not due to sepsis Right foot callus Treated with antibiotics, no clear infection symptoms wound nurse evaluation Hold on further antibiotics for now Anxiety disorder Continue her home medications Type 2 diabetes Hold oral medications Start sliding scale insulin Hypertension Restart her home medications once at a time DVT PPX Heparin Quality Stroke Does the patient have a stroke diagnosis?: No VTE Prior VTE?: No VTE Risk Level:: Medical - moderate - high VTE Device Contraindication: Treatment Not Indicated VTE Drug Contraindication: N/A - Med Ordered
[2022-01-08 11:50] LABS: Glucose, Whole Blood 166 mg/dL (60-115)
[2022-01-08 12:00] VITALS: BP 152/73; PULSE 67; RESP 18; TEMP 36.2; O2SAT 97
[2022-01-08 15:42] VITALS: BP 165/87; PULSE 71; RESP 18; TEMP 37.1; O2SAT 97
[2022-01-08 16:11] LABS: Glucose, Whole Blood 147 mg/dL (60-115)
--- NOTE | 2022-01-08 17:25 | PM.PNNEP ---
Subjective Subjective Date of Service: 01/08/22 Principal diagnosis: JEANNIE on CKD Interval history: the patient was seen and evaluated this morning Laying in bed, feels significant improvement Creatinine improved to 1.7 Denies any fever, chills or chest pain No reported other overnight events. Physical Exam Vital Signs: Vital Signs: Last Vital Signs Temp 98.7 F 01/08/22 15:42 Pulse 71 01/08/22 15:42 Resp 18 01/08/22 15:42 BP 165/87 H 01/08/22 15:42 Pulse Ox 97 01/08/22 15:42 BMI result Body Mass Index 48.0 Objective Data Labs CBC & Chem 7: 01/08/22 06:30 01/08/22 06:30 Labs: Laboratory Results - last 24 hr 01/07/22 01/08/22 01/08/22 20:35 06:30 06:30 WBC 7.3 RBC 3.12 L Hgb 9.7 L Hct 29.3 L MCV 93.9 MCH 31.1 MCHC 33.1 RDW 12.8 Plt Count 412 H MPV 9.1 L Absolute Nucleated RBC 0.000 Nucleated RBC % (auto) 0.0 Sodium 139 Potassium 5.6 H Chloride 107 Carbon Dioxide 24 Anion Gap 14 BUN 30 H Creatinine 1.66 H Estim Creat Clear Calc 49.3 Estimated GFR 32 POC Glucose 139 H Random Glucose 155 H Calcium 9.2 D 01/08/22 01/08/22 01/08/22 07:52 11:30 15:58 WBC RBC Hgb Hct MCV MCH MCHC RDW Plt Count MPV Absolute Nucleated RBC Nucleated RBC % (auto) Sodium Potassium Chloride Carbon Dioxide Anion Gap BUN Creatinine Estim Creat Clear Calc Estimated GFR POC Glucose 122 H 166 H 147 H Random Glucose Calcium Microbiology Microbiology Results: Microbiology 01/06/22 13:54 Blood - Venous Blood Culture - Preliminary No growth after 48 hours. 01/06/22 12:54 Blood - Venous Blood Culture - Preliminary No growth after 48 hours. Procedures Date of Service Date of Service: 01/08/22 Assessment & Plan Assessment and plan (1) Acute kidney failure: Status: Acute (2) Hyperkalemia: Status: Acute (3) Hypertension: Status: Acute (4) Acute kidney injury (nontraumatic): Status: Acute Plan Problem List: JEANNIE in setting of CKD Hyperkalemia volume depletion #)JEANNIE on CKD: -Her S-Cr initially on presentation was ~ 6.1 mg/dL with subsequent improvement to ~3.1 mg/dL following IVF administration. Noted to also have hyperkalemia in setting of jeannie. -S-Cr now improved to 1.7 mg/dL. Would hold on additional IVF's. -Monitor weights daily -CT abd/pelvis without evidence of nephrolithiasis or hydronephrosis. -monitor renal panel daily -I/O's bladder scan for noted oliguria/anuria -agree with lokelma 10G bid until hyperkalemia resolves. -low K diet. Provided education to patient on High K foods to avoid. -avoidance of nephrotoxic agents such as nsaids, acei/arb, contrast admin, renal dosing abx. -ccb for bp control until jeannie returns to [place] - #)HTN: -BP remains elevated despite CCB. -She would benefit from addition of ARB moving forward however hyperkalemia may be a limiting factor. #)ANemia with underlying CKD. Iron panel for am. -Can help with outpatient follow up with nephrology following dc. Time Spent With Patient Time: Total time spent is greater than 50% in coordination of care (as documented) at patient's floor/unit and/or counseling patient: Time with patient: 25 - 35 minutes Progress Note: Quality Stroke Does the patient have a stroke diagnosis?: No
[2022-01-08 18:19] LABS: Iron 91 mcg/dL (30-160); Percent Iron Saturation 27 % (15-50); Total Iron Binding Capacity 333 mcg/dL (228-428); Unsaturated Iron Binding 242 ug/dL
[2022-01-08 19:19] VITALS: BP 145/67; PULSE 89; RESP 18; TEMP 37.1; O2SAT 98
[2022-01-08 20:08] LABS: Glucose, Whole Blood 165 mg/dL (60-115)
[2022-01-08] MEDS: traZODone HCL 25 MG HALFTAB 75 MG PO (20:48)
[2022-01-08] MEDS: cloNIDine HCL 0.2 MG TABLET PO (20:50)
[2022-01-08] MEDS: Atorvastatin Calcium 80 MG TABLET PO (20:50)
[2022-01-08] MEDS: Insulin Lispro 100 UNIT/ML 3 ML VIAL SUBCUT (20:51)
[2022-01-08] MEDS: Latanoprost 0.005 % Ophth Sol 2.5 ML DROPS 1 DROP EYE-BOTH (20:52)
[2022-01-08] MEDS: Calcium Carbonate 750 MG TAB.CHEW PO (21:41)
[2022-01-08 23:34] VITALS: BP 139/74; PULSE 63; RESP 20; TEMP 36.2; O2SAT 96
[2022-01-08] MEDS: Acetaminophen 325 MG TABLET 650 MG PO (23:42)
[2022-01-09 03:54] VITALS: BP 109/55; PULSE 61; RESP 18; TEMP 35.8; O2SAT 95
[2022-01-09] MEDS: Levothyroxine Sodium 125 MCG TABLET PO (05:53)
[2022-01-09] MEDS: Heparin Sodium,Porcine 5,000 UNIT/ML VIAL 5000 UNIT SUBCUT (05:53)
[2022-01-09 06:55] LABS: Anion Gap 13 (12-20); Blood Urea Nitrogen 22 mg/dL (9-16); Calcium 10.1 mg/dL (8.4-10.2); Carbon Dioxide 28 mmol/L (22-29); Chloride 104 mmol/L (96-108); Creatinine Clr Calc Pharmacy 60.7; Estimated Glomerular Filt Rate 40; Glucose Random 145 mg/dL (60-115); Potassium 5.6 mmol/L (3.3-5.1); Sodium 139 mmol/L (135-145)
[2022-01-09 07:32] LABS: Glucose, Whole Blood 133 mg/dL (60-115)
[2022-01-09 08:00] VITALS: BP 169/79; PULSE 59; RESP 18; TEMP 36.1; O2SAT 98
[2022-01-09] MEDS: buPROPion HCl XL 150 MG TAB.ER.24H PO (08:37)
[2022-01-09] MEDS: Ezetimibe 10 MG TABLET PO (08:37)
[2022-01-09] MEDS: lamoTRIgine 100 MG TABLET PO (08:37)
[2022-01-09] MEDS: 0.9 % Sodium Chloride Flush 3 ML SYRINGE IVFLUSH (08:37)
[2022-01-09] MEDS: dilTIAZem HCL CD 180 MG CAP.ER.24H PO (08:37)
[2022-01-09] MEDS: Sodium Zirconium Cyclosilicate 10 GM POWD.PACK PO (08:38)
[2022-01-09] MEDS: Sodium Polystyrene Sulfon/Sorb 15 GM/60 ML ORAL.SUSP 30 GM PO ×2 (08:41→14:30)
[2022-01-09 11:31] LABS: Glucose, Whole Blood 134 mg/dL (60-115)
[2022-01-09 11:59] VITALS: BP 138/64; PULSE 68; RESP 18; TEMP 36.7; O2SAT 97
[2022-01-09] MEDS: Calcium Carbonate 750 MG TAB.CHEW PO (12:09)
--- NOTE | 2022-01-09 13:49 | PM.DS ---
DS: Providers Provider Date of Service: 01/09/22 Date of admission: 01/06/22 17:29 Primary care physician: Lakeisha Hernández MD Consults: 01/06/22 17:29 Consult to Nephrology Routine Consulting Provider: Romeo Gardner Reason for consultation: Acute kidney injury for your current eval DS: Diagnosis Discharge Diagnosis (1) Hyperkalemia: Status: Acute (2) Hypertension: Status: Acute (3) Acute kidney injury (nontraumatic): Status: Acute (4) Acute renal failure superimposed on chronic kidney disease: Status: Acute (5) Lactic acidosis: Status: Acute DS: Summary Hospital Course Hospital Course: Admission note HPI A 56 years old lady with PMH of CKD stage 3, HTN, diabetes, hypothyroidism, anxiety among others who presents to the hospital complaining of 1 week of weakness and dizziness.? She reported this has been gradually getting worse associated with some nausea as she was started on oral antibiotic of Augmentin for a wound in her ankle.? This morning she was unable to stand up and she felt very weak and almost fell but she slid down. denies any fever, chills. In the emergency she was found to have creatinine of 6 from unknown baseline but CKD 3 according the patient associated with lactic acidosis.? Admitted for further evaluation and treatment. Hospital course The patient was admitted for evaluation of acute kidney injury on reported chronic kidney disease. Creatinine was found to be around 6 with so she 80 hyperkalemia. Treated with IV fluid and Lokelma with improvement in the kidney function over the course of hospital stay down to 1.3 at the day of discharge. The patient remained mildly hyperkalemic requiring Lokelma and Kayexalate. Seen by Nephrology team who will follow up with her as outpatient. Potassium dropped to 5.2, the patient asked to be discharged home as she has family to take care of. with the improvement fro, 5.6 to 5.2 will dc on Lokelma and to repeat BMP in few days. She was seen by the wound care nurse for chronic wound in her foot. No signs of infection identified. Antibiotics discontinued. Continue Lokelma for the next week To repeat BMP next week Restart lisinopril in 3 days to follow-up with PCP and Nephrology as needed. Time Spent with Patient Time attestation: Total time spent providing and/or coordinating discharge services: Discharge coordination time: Greater than 30 minutes Quality: Stroke Does the patient have a stroke diagnosis?: No Physical Exam Vital Signs: Vital Signs: Last Vital Signs Temp 98.0 F 01/09/22 11:59 Pulse 68 01/09/22 11:59 Resp 18 01/09/22 11:59 BP 138/64 01/09/22 11:59 Pulse Ox 97 01/09/22 11:59 BMI result Body Mass Index 48.0 Const: Other: Constitutional : Alert, oriented, not in distress Neck : Normal inspection, Supple Cardiovascular : RRR, S1 S2, no lower extremity edema Respiratory : Good bilateral air entry, no crackles, wheezes or rhonchi Gastrointestinal: soft, lax, Normal bowel sounds, Non tender Skin : Callus in the right foot with mild ulceration, no clear surrounding erythema or drainage. Neurological : Alert & oriented x3, No focal deficit DS: Data Data Completed and Pending Labs on day of discharge: Laboratory Results - last 24 hr 01/08/22 01/08/22 01/08/22 15:58 17:44 20:01 Sodium Potassium Chloride Carbon Dioxide Anion Gap BUN Creatinine Estim Creat Clear Calc Estimated GFR POC Glucose 147 H 165 H Random Glucose Calcium Iron 91 TIBC 333 % Saturation 27 Unsat Iron Binding 242 01/09/22 01/09/22 01/09/22 06:01 07:29 11:18 Sodium 139 Potassium 5.6 H Chloride 104 Carbon Dioxide 28 Anion Gap 13 BUN 22 H Creatinine 1.35 Estim Creat Clear Calc 60.7 Estimated GFR 40 POC Glucose 133 H 134 H Random Glucose 145 H Calcium 10.1 D Iron TIBC % Saturation Unsat Iron Binding Preliminary micro results at discharge 01/06/22 13:54 Blood Culture - Preliminary Blood - Venous No growth after 48 hours. 01/06/22 12:54 Blood Culture - Preliminary Blood - Venous No growth after 48 hours. Discharge Plan Discharge Patient Disposition: Home, Self-Care Discharge Diagnosis: Acute kidney injury Hyperkalemia Referrals: Lakeisha Hernández MD [Primary Care Provider] - 1 Week Discharge Medications: New Lokelma 5 gram powder in packet 5 g PO DAILY Qty: 7 0RF Continued latanoprost 0.005 % drops 1 drp ophthalmic (eye) BEDTIME 0RF atorvastatin 80 mg tablet 1 tab PO DAILY 0RF clonidine HCl 0.1 mg tablet 2 tab PO BEDTIME 0RF trazodone 50 mg tablet 1.5 tab PO BEDTIME 0RF citalopram 10 mg tablet 1 tab PO DAILY 0RF metformin 1,000 mg tablet 1 tab PO BID 0RF levothyroxine 125 mcg tablet 1 tab PO QAM 0RF gabapentin 300 mg capsule 1 cap PO DAILY PRN (Reason: Pain) 0RF hydrochlorothiazide 25 mg tablet 1 tab PO DAILY 0RF albuterol sulfate 90 mcg/actuation HFA aerosol inhaler 2 puff inhalation Q6H PRN (Reason: wheezing) 0RF diltiazem HCl [DILT-XR] 180 mg capsule,ext.rel 24h degradable 1 cap PO DAILY 0RF lamotrigine 100 mg tablet 1 tab PO DAILY 0RF ezetimibe 10 mg tablet 1 tab PO DAILY 0RF bupropion HCl 300 mg tablet extended release 24 hr 1 tab PO DAILY 0RF bupropion HCl 150 mg tablet extended release 24 hr 1 tab PO DAILY 0RF Trulicity 1.5 mg/0.5 mL pen injector 0.5 ml subcut QWEEK 0RF Held lisinopril 30 mg tablet 1 tab PO DAILY 0RF Hold Instructions: Resume on 01/12/22. Discontinued amoxicillin-pot clavulanate 500-125 mg tablet 1 tab PO Q12H 0RF Rx Instructions: STARTED ON 12/28, FOR 10 DAYS Discharge Orders: Discharge Order (Routine); Ordered 01/09/22 Ordered By: Vicki Gipson Diet: advance to usual diet Activity on Discharge: As tolerated Stand Alone Forms: Patient Portal Discharge page Other Ambulatory Orders: Basic Metabolic Panel (Routine) Timeframe: [id number] Facility: [facility] - Location: Laboratory Ordered By: Vicki Gipson Activity Restrictions/Additional Instructions: Low Potassium diet Care Plan Goals: Read below Health Concerns: Read below Plan of Treatment: Read below Assessment: You were admitted to the hospital for evaluation of dizziness and weakness. Found to have acute kidney injury as a result of dehydration and blood pressure medications. Treated with IV fluid and you were seen by ambulette driver as your kidney function improved during the hospital stay back almost to normal baseline. Continue Lokelma for high potassium level Hold lisinopril for the next 3 days Repeat BMP next week To follow-up with nephrology as needed as outpatient. Patient Instructions: Potassium Content of Foods List (DC), Hyperkalemia (DC)
[2022-01-09 14:04] LABS: Anion Gap 12 (12-20); Blood Urea Nitrogen 21 mg/dL (9-16); Calcium 9.7 mg/dL (8.4-10.2); Carbon Dioxide 29 mmol/L (22-29); Chloride 102 mmol/L (96-108); Creatinine Clr Calc Pharmacy 61.1; Estimated Glomerular Filt Rate 41; Glucose Random 160 mg/dL (60-115); Potassium 5.2 mmol/L (3.3-5.1); Sodium 138 mmol/L (135-145)
--- NOTE | 2022-01-09 14:31 | MHC.CM.PN ---
PT CLEARED TO DC HOME TODAY WITH NO NEW SERVICES
== END 2022-01-09 15:19 | disposition home or self-care (01) | DRG 683 ==
LOC: HO.ED 17:11 → HO.EDOVER 17:45 → HO.IMC 19:36
PROVIDERS: Internal Medicine Nephrology; Physician Assistant; Admitting Provider Student in an Organized Health Care Education/Training Program; Emergency Provider Emergency Medicine; PCP Internal Medicine; Visit Provider Student in an Organized Health Care Education/Training Program
DX: N17.9 Acute kidney failure, unspecified (principal); E87.2 Acidosis; Z68.42 Body mass index [BMI] 45.0-49.9, adult; I12.9 Hypertensive chronic kidney disease with stage 1 through stage 4 chronic kidney disease, or unspecified chronic kidney disease; E78.5 Hyperlipidemia, unspecified; E03.9 Hypothyroidism, unspecified; J45.909 Unspecified asthma, uncomplicated; E87.5 Hyperkalemia; E66.01 Morbid (severe) obesity due to excess calories; F41.9 Anxiety disorder, unspecified; D63.1 Anemia in chronic kidney disease; E86.0 Dehydration; T46.5X5A Adverse effect of other antihypertensive drugs, initial encounter; I95.9 Hypotension, unspecified; N18.30 Chronic kidney disease, stage 3 unspecified; E11.22 Type 2 diabetes mellitus with diabetic chronic kidney disease; Z79.84 Long term (current) use of oral hypoglycemic drugs; Z79.890 Hormone replacement therapy; Z79.899 Other long term (current) drug therapy
CPT/HCPCS: 36415; 70450; 71045; 74176; 80048; 80053; 81003; 82947; 83540; 83605; 83735; 84300; 84484; 85025; 85027; 87040; 87635; 93005; 96361; 96365; 96367; 96375; 97162; 99223; 99232; 99285; J2543; J3370

== ENCOUNTER 2022-02-20 04:54 | Emergency (ER) | payer MEDICARE, MEDICAID, SELFPAY ==
--- NOTE | ~2022-02-20 | XR_ITS ---
EXAMINATION: XR PORTABLE CHEST CLINICAL INFORMATION: Chest pain COMPARISON: 01/06/2022 TECHNIQUE: AP portable upright view of the chest FINDINGS: Lungs are clear. No consolidation, pneumothorax, or pleural effusion. Cardiac and mediastinal contours are normal. Pulmonary vasculature is unremarkable. Osseous structures are unremarkable. XR/XR chest 1V IMPRESSION: No acute cardiopulmonary findings
--- NOTE | 2022-02-20 04:57 | ECG_ITS ---
Test Reason : CHEST PAIN Blood Pressure : / mmHG Vent. Rate : 076 BPM Atrial Rate : 076 BPM P-R Int : 142 ms QRS Dur : 076 ms QT Int : 390 ms P-R-T Axes : 048 023 033 degrees QTc Int : 438 ms Normal sinus rhythm Normal ECG When compared with ECG of 06-JAN-2022 13:41, ST no longer elevated in Lateral leads Referred By: Generic ED Physician Electronically Signed By:Jonatan Spence
[2022-02-20 04:58] VITALS: BP 201/74; PULSE 82; RESP 16; TEMP 36.9; O2SAT 97; BMI 50.6
[2022-02-20 05:16] LABS: Basophils Absolute Auto 0.1 X10*3/uL (0.0-0.2); Basophils Percent Auto 0.4 % (0-2); Eosinophils Absolute Auto 0.3 X10*3/uL (0.0-0.4); Eosinophils Percent Auto 2.2 % (0-4); Hematocrit 33.3 % (37.0-47.0); Hemoglobin 11.6 g/dl (12.0-16.0); Imm Gran Abs Auto 0.05 X10*3/uL (0.00-0.03); Imm Gran Pct Auto 0.4 % (0.0-0.4); Lymphocytes Percent Auto 50.6 % (20-40); MANUAL DIFF FLAG SCAN; Mean Corpuscular HGB Conc 34.8 g/dl (31.0-35.0); Mean Corpuscular Hemoglobin 31.1 pg (27.0-33.0); Mean Corpuscular Volume 89.3 fL (80.0-98.0); Mean Platelet Volume 8.6 fL (9.4-12.3); Monocytes Absolute Auto 1.1 X10*3/uL (0.1-1.2); Monocytes Percent Auto 8.2 % (2-11); Neutrophils Absolute Auto 4.9 x10*3/uL (2.0-8.3); Neutrophils Percent Auto 38.2 % (45-73); Platelet Count 451 X10*3/uL (160-400); Red Blood Count 3.73 X10*6/uL (4.20-5.50); Red Cell Distribution Width 12.5 % (11.0-16.0); SCAN SMEAR FLAG 1; White Blood Count 12.9 X10*3/uL (4.8-10.8)
[2022-02-20 05:31] LABS: Lymphocytes Absolute Auto 6.5 X10*3/uL (1.2-4.9)
[2022-02-20 05:33] LABS: SLIDE REVIEW VERIFIED
[2022-02-20 05:36] LABS: Anion Gap 15 (12-20); Blood Urea Nitrogen 19 mg/dL (9-16); Calcium 9.5 mg/dL (8.4-10.2); Carbon Dioxide 25 mmol/L (22-29); Chloride 102 mmol/L (96-108); Creatinine Clr Calc Pharmacy 72.7; Estimated Glomerular Filt Rate 48; Glucose Random 170 mg/dL (60-115); Potassium 4.3 mmol/L (3.3-5.1); Sodium 138 mmol/L (135-145)
[2022-02-20 05:37] LABS: Troponin-I High Sensitivity 11.4 ng/L (<3.5-17.0)
--- NOTE | 2022-02-20 06:24 | ED.CHESTPAIN ---
HPI - Chest Pain General Chief Complaint: Chest Pain Stated Complaint: Chest Pain, weak in the legs Time Seen by Provider: 02/20/22 05:56 Source: patient Mode of arrival: ambulatory Limitations: no limitations History of Present Illness HPI narrative: 57-year-old female who presents emergency department for evaluation chest pain, weakness in her lower extremities, dizziness and concerned about having high potassium and kidney failure. The patient was seen in the patient was admitted on 01/06/2022 for of 1 week of weakness and dizziness the point were she had difficulty standing. At that admission her BUN was 61 with a creatinine of 6.13 with an elevated potassium of 5.4. Patient was treated with IV fluids and Lokelma with improvement of her kidney function and potassium. Discharge diagnosis was acute kidney injury superimposed on chronic kidney disease. The patient states of the past 2-3 days she has been feeling weak. She states that her legs are wobbly and they feel like they are going to give out on her, this is how she felt when she had a high potassium. She states that she is feeling dizzy and lightheaded and she was concerned that her blood pressure was low so she stop taking her antihypertensive medications. Also states that over the past today she is not taking her omeprazole. The patient states that at midnight she developed a sudden onset of a pressure-like pain in her sternal area of her chest. She states that lasted 2 minutes then resolved. She states that she had a 2nd episode 30 minutes later that lasted 2 minutes and resolved. She currently is complaining of a pressure-like pain in her sternal area of her chest. She states the pain was 7/10 at its worst but has not 2/10. She denied fever, chills, rhinorrhea, sore throat, cough, shortness of breath, nausea, vomiting, diarrhea, abdominal pain, frequency, urgency, dysuria Related Data Home Medications Medication Instructions Recorded Confirmed albuterol sulfate 90 mcg/actuation 2 puff INHALATION Q6H PRN 01/06/22 01/06/22 aerosol inhaler atorvastatin 80 mg tablet 1 tab PO DAILY 01/06/22 01/06/22 bupropion HCl 150 mg 24 hr tablet, 1 tab PO DAILY 01/06/22 01/06/22 extended release bupropion HCl 300 mg 24 hr tablet, 1 tab PO DAILY 01/06/22 01/06/22 extended release citalopram 10 mg tablet 1 tab PO DAILY 01/06/22 01/06/22 clonidine HCl 0.1 mg tablet 2 tab PO BEDTIME 01/06/22 01/06/22 diltiazem HCl 180 mg 1 cap PO DAILY 01/06/22 01/06/22 capsule,extended release 24 hr, controlled (DILT-XR) dulaglutide 1.5 mg/0.5 mL 0.5 ml SUBCUT QWEEK 01/06/22 01/06/22 subcutaneous pen injector (Trulicity) ezetimibe 10 mg tablet 1 tab PO DAILY 01/06/22 01/06/22 gabapentin 300 mg capsule 1 cap PO DAILY PRN 01/06/22 01/06/22 hydrochlorothiazide 25 mg tablet 1 tab PO DAILY 01/06/22 01/06/22 lamotrigine 100 mg tablet 1 tab PO DAILY 01/06/22 01/06/22 latanoprost 0.005 % eye drops 1 drp OPHTHALMIC (EYE) BEDTIME 01/06/22 01/06/22 levothyroxine 125 mcg tablet 1 tab PO QAM 01/06/22 01/06/22 lisinopril 30 mg tablet 1 tab PO DAILY 01/06/22 01/06/22 metformin 1,000 mg tablet 1 tab PO BID 01/06/22 01/06/22 trazodone 50 mg tablet 1.5 tab PO BEDTIME 01/06/22 01/06/22 Previous Rx's Medication Instructions Recorded sodium zirconium cyclosilicate 5 5 g PO DAILY #7 ea 01/09/22 gram oral powder packet ([facility]) Allergies Allergy/AdvReac Type Severity Reaction Status Date / Time No Known Allergies Allergy Verified 02/20/22 05:03 [facility] Past Medical History [facility] Narrative: Past medical history: Reviewed below she has history of diabetes, hypertension, hyperlipidemia, asthma, depression, anxiety. Past surgical history: Patient had a cholecystectomy. Patient also had a bladder sling surgery. Social history: The patient denies tobacco, alcohol and drug use. Medical History Anxiety CKD stage 3 secondary to diabetes Depression Hyperlipemia Family History Family History Other Hypertension Social History Social History Household Members: Family Housing: House Do you presently have visiting nurse or other home services: No Patient Tobacco Use Status: Never used Tobacco Advance Directives: No Advance Directives Information Provided: Yes service: No Current occupational status: disabled Physical Exam Vital Signs: Vital Signs: Last Vital Signs Temp 98.4 F 02/20/22 04:58 Pulse 82 02/20/22 06:35 Resp 16 02/20/22 06:35 BP 201/74 H 02/20/22 04:58 Pulse Ox 98 02/20/22 06:35 BMI result Body Mass Index 50.6 Const: Other: Very pleasant and cooperative female patient, she does not appear to be in distress, she answers all questions appropriately HEENT: Head: Yes normal to inspection, Yes normocephalic and Yes atraumatic Ears: external ears normal General nose exam: Normal external nose present Face and sinus: Yes normal facial exam Mouth: Normal oral and palatal mucosa present Throat: Yes posterior oropharynx normal Eyes: General: appearance normal, both eyes and all related structures Pupils: Equal, round and reactive pupils present Neck: Neck: Yes normal visual inspection, Yes no lymphadenopathy, Yes trachea midline and Yes supple Chest: Chest palpation & inspection: normal inspection of the chest and tenderness sternum Resp: Effort & Inspection: normal respiratory effort and able to speak in complete sentences Auscultation: clear to auscultation bilaterally Cardio: Rate: regular rate Rhythm: regular rhythm Heart sounds: S1 normal heart sound present, S2 normal heart sound present and no murmurs GI: Inspection: Yes normal to inspection Palpation (GI): Soft to palpation, Tenderness to palpation present (GI) in the epigastrum (Moderate) and no guarding Auscultation: normal bowel sounds : General: Yes no CVA tenderness Back/Spine/Pelvis: Back: no CVA tenderness Skin: General skin exam: no rashes or lesions noted Neuro: Cranial nerves: Yes CN's II-XII intact bilaterally and Yes Equal, round and reactive pupils present Cognition (Neuro): normal cognition Motor exam (neuro): 5/5 motor strength present throughout Extrem: General: Yes normal to inspection Psych: Appearance: grossly normal Speech and movement: Normal speech and movement present Affect: normal affect Attitude: cooperative Thought process: Normal thought process present Thought content: Normal thought content present Course Course Course Narrative: 57-year-old female who presents emergency department for evaluation weakness times 3-4 days with the sensation is if her legs are giving out on her, lightheadedness dizziness and chest pain. Patient was hospitalized on 01/06/2022 for acute on chronic kidney disease with markedly elevated BUN and creatinine of 61 and 6.13 with elevated potassium of 5.4. Patient was concerned that she had acute kidney injury again and took Lokelma prior to coming to the emergency department. She also stopped her antihypertensive medication and her omeprazole 2 days prior. Vital signs did reveal an elevated blood pressure of 201/74 otherwise were unremarkable. Examination did reveal a woman with a elevated BMI 50.6 . She did have sternal chest wall tenderness and epigastric tenderness. Laboratory evaluation was ordered to include CBC, BMP, troponin, EKG and chest x-ray. 0638: Laboratory evaluation: Elevated WBC 41786, anemia H&H 11 and 33, this is chronic, elevated platelets [id number]. Elevated BUN of 19 with a normal creatinine of 1.17 with a GFR of 72, elevated glucose of 170. High sensitivity troponin I was detectable but not elevated at 11.4. EKG was unremarkable. Chest x-ray was normal. I did add liver panel and lipase the patient's laboratory evaluation. A repeat high sensitivity troponin I will be obtained at 08:31 hours. The patient was treated with Maalox 30 cc, viscous lidocaine 10 cc and 10 cc orally for possible gastritis. At the end of my shift, the patient's care was turned over to my colleague, Dr. Brianna Quach. MDM - Chest Pain Lab Data Result diagrams: 02/20/22 05:12 02/20/22 05:12 Labs: Lab Results 02/20/22 02/20/22 02/20/22 Range/Units 05:12 05:12 05:12 WBC 12.9 H (4.8-10.8) X10*3/uL RBC 3.73 L (4.20-5.50) X10*6/uL Hgb 11.6 L (12.0-16.0) g/dl Hct 33.3 L (37.0-47.0) % MCV 89.3 (80.0-98.0) fL MCH 31.1 (27.0-33.0) pg MCHC 34.8 (31.0-35.0) g/dl RDW 12.5 (11.0-16.0) % Plt Count 451 H (160-400) X10*3/uL MPV 8.6 L (9.4-12.3) fL Immature Gran % (Auto) 0.4 (0.0-0.4) % Neut % (Auto) 38.2 L (45-73) % Lymph % (Auto) 50.6 H (20-40) % Hunt % (Auto) 8.2 (2-11) % Eos % (Auto) 2.2 (0-4) % Baso % (Auto) 0.4 (0-2) % Lymph # (Auto) 6.5 H (1.2-4.9) X10*3/uL Hunt # (Auto) 1.1 (0.1-1.2) X10*3/uL Eos # (Auto) 0.3 (0.0-0.4) X10*3/uL Baso # (Auto) 0.1 (0.0-0.2) X10*3/uL Abs Immat Gran (auto) 0.05 H (0.00-0.03) X10*3/uL Absolute Neuts (auto) 4.9 (2.0-8.3) x10*3/uL Absolute Nucleated RBC 0.000 (0.0-0.012) X10*3/uL Nucleated RBC % (auto) 0.0 (0.0-0.2) /100WBC Smear Tech's Comments VERIFIED Sodium 138 (135-145) mmol/L Potassium 4.3 (3.3-5.1) mmol/L Chloride 102 (96-108) mmol/L Carbon Dioxide 25 (22-29) mmol/L Anion Gap 15 (12-20) BUN 19 H (9-16) mg/dL Creatinine 1.15 (0.5-1.4) mg/dL Estim Creat Clear Calc 72.7 Estimated GFR 48 Random Glucose 170 H (60-115) mg/dL Calcium 9.5 (8.4-10.2) mg/dL Total Bilirubin 0.4 (0.0-1.0) mg/dL Direct Bilirubin < 0.2 (0.0-0.5) mg/dL AST 14 (5-31) U/L ALT 18 (0-31) U/L Alkaline Phosphatase 88 (39-117) U/L Troponin I High Sens 11.4 (<3.5-17.0) ng/L Total Protein 7.3 (6.5-8.0) g/dL Albumin 4.0 (3.5-5.0) g/dL Lipase 39 (8-78) U/L ECG Data ECG #1: Attestation: I personally reviewed and interpreted this ECG as follows: Interpretation: 0458: Normal sinus rhythm rate of 76, normal CA interval, QRS duration and QTC interval. Inverted T-wave in lead 3, otherwise this is a normal EKG. Discharge Plan Discharge Clinical Impression: Weakness Chest pain Qualifiers: Chest pain type: unspecified Qualified Code(s): R07.9 - Chest pain, unspecified Abdominal pain Qualifiers: Abdominal location: epigastric Qualified Code(s): R10.13 - Epigastric pain Patient Disposition: Still a Patient Prescriptions: No Action latanoprost 0.005 % drops 1 drp ophthalmic (eye) BEDTIME 0RF atorvastatin 80 mg tablet 1 tab PO DAILY 0RF clonidine HCl 0.1 mg tablet 2 tab PO BEDTIME 0RF trazodone 50 mg tablet 1.5 tab PO BEDTIME 0RF citalopram 10 mg tablet 1 tab PO DAILY 0RF metformin 1,000 mg tablet 1 tab PO BID 0RF levothyroxine 125 mcg tablet 1 tab PO QAM 0RF lisinopril 30 mg tablet 1 tab PO DAILY 0RF Hold Instructions: Resume on 01/12/22. gabapentin 300 mg capsule 1 cap PO DAILY PRN (Reason: Pain) 0RF hydrochlorothiazide 25 mg tablet 1 tab PO DAILY 0RF albuterol sulfate 90 mcg/actuation HFA aerosol inhaler 2 puff inhalation Q6H PRN (Reason: wheezing) 0RF diltiazem HCl [DILT-XR] 180 mg capsule,ext.rel 24h degradable 1 cap PO DAILY 0RF lamotrigine 100 mg tablet 1 tab PO DAILY 0RF ezetimibe 10 mg tablet 1 tab PO DAILY 0RF bupropion HCl 300 mg tablet extended release 24 hr 1 tab PO DAILY 0RF bupropion HCl 150 mg tablet extended release 24 hr 1 tab PO DAILY 0RF Trulicity 1.5 mg/0.5 mL pen injector 0.5 ml subcut QWEEK 0RF Lokelma 5 gram powder in packet 5 g PO DAILY Qty: 7 0RF
[2022-02-20 06:35] VITALS: PULSE 82; RESP 16; O2SAT 98
[2022-02-20] MEDS: Magnesium Hydrox/Alum Hydrox 30 ML ORAL.SUSP PO (06:36)
[2022-02-20] MEDS: Lidocaine HCl Viscous 2 % 15 ML SOLUTION 10 ML PO (06:36)
[2022-02-20] MEDS: PHENobarb/Hyoscy/Atropine/Scop 10 ML ELIXIR PO (06:36)
[2022-02-20 06:50] LABS: Alanine Aminotransferase 18 U/L (0-31); Alkaline Phosphatase 88 U/L (39-117); Aspartate Amino Transferase 14 U/L (5-31); Bilirubin Direct < 0.2 mg/dL (0.0-0.5); Bilirubin Total 0.4 mg/dL (0.0-1.0); Lipase 39 U/L (8-78); Total Protein 7.3 g/dL (6.5-8.0)
[2022-02-20 07:56] VITALS: BP 150/68; PULSE 70; RESP 18; O2SAT 97
--- NOTE | 2022-02-20 07:57 | PC.NURSE ---
denies cp at this time. nsr on monitor. skin pwd. unlabored resp.
[2022-02-20 09:02] LABS: Troponin-I High Sensitivity 11.5 ng/L (<3.5-17.0)
== END 2022-02-20 09:00 | disposition home or self-care (01) ==
PROVIDERS: Emergency Provider Emergency Medicine Emergency Medical Services; PCP Internal Medicine
DX: R07.9 Chest pain, unspecified (principal); R10.13 Epigastric pain; M62.81 Muscle weakness (generalized); Z79.899 Other long term (current) drug therapy
CPT/HCPCS: 36415; 71045; 80048; 80076; 83690; 84484; 85025; 93005; 99284

== ENCOUNTER 2022-04-15 18:27 | Emergency (ER) | payer MEDICARE, MEDICAID, SELFPAY ==
--- NOTE | ~2022-04-15 | XR_ITS ---
EXAMINATION: XR TOES, LEFT CLINICAL INFORMATION: Pain, redness, swelling. Unknown injury COMPARISON: None TECHNIQUE: Frontal view of the left foot. 2 views of the left toes. FINDINGS: There is no opaque foreign body. No soft tissue gas. Extensive nonspecific soft tissue swelling. There is no acute fracture. No aggressive periosteal new bone formation. There is plantar flexion of the IP joints. XR/XR toe LT min 2V IMPRESSION: Nonspecific soft tissue swelling. No opaque foreign body or soft tissue gas. No periosteal new bone formation or bone destruction
[2022-04-15 18:40] VITALS: BP 139/75; PULSE 94; RESP 18; TEMP 36.1; O2SAT 97; BMI 50.1
--- NOTE | 2022-04-15 19:53 | ED_ITS ---
HPI - Extremity Problem General Chief complaint: Extremity Problem Stated complaint: broken toe? diabetic Time Seen by Provider: 04/15/22 19:52 Source: patient Mode of arrival: ambulatory Limitations: no limitations History of Present Illness HPI Narrative: 57 yo female with history of DM with neuropathy, HTN, HLD, asthma, depression, anxiety, status post cholecystectomy who presents to the ER with nontraumatic l eft great toe pain and rednessfor the last 2 weeks. She also reports some redness to the area, denies any injury. She reports the redness has been spreading towards the foot and is warm. She has a history of infection of her right toe in the same area. She denies history of gout. She reports the pain is worse at night after she has been standing on her foot all day. She denies any fever or chills. She has not been antibiotics recently. MD Complaint: joint swelling and joint pain Onset (ago): week(s) (2) Pain Consistency: constant Location: left Severity scale (1-10): 7 Quality: aching Radiation: none Relieving factors: rest Exacerbating factors: weight bearing, walking and palpation Associated symptoms: denies other symptoms Related Data Home Medications Medication Instructions Recorded Confirmed albuterol sulfate 90 mcg/actuation 2 puff INHALATION Q6H PRN 01/06/22 01/06/22 aerosol inhaler atorvastatin 80 mg tablet 1 tab PO DAILY 01/06/22 01/06/22 bupropion HCl 150 mg 24 hr tablet, 1 tab PO DAILY 01/06/22 01/06/22 extended release bupropion HCl 300 mg 24 hr tablet, 1 tab PO DAILY 01/06/22 01/06/22 extended release citalopram 10 mg tablet 1 tab PO DAILY 01/06/22 01/06/22 clonidine HCl 0.1 mg tablet 2 tab PO BEDTIME 01/06/22 01/06/22 diltiazem HCl 180 mg 1 cap PO DAILY 01/06/22 01/06/22 capsule,extended release 24 hr, controlled (DILT-XR) dulaglutide 1.5 mg/0.5 mL 0.5 ml SUBCUT QWEEK 01/06/22 01/06/22 [facility] ezetimibe 10 mg tablet 1 tab PO DAILY 01/06/22 01/06/22 gabapentin 300 mg capsule 1 cap PO DAILY PRN 01/06/22 01/06/22 hydrochlorothiazide 25 mg tablet 1 tab PO DAILY 01/06/22 01/06/22 lamotrigine 100 mg tablet 1 tab PO DAILY 01/06/22 01/06/22 latanoprost 0.005 % eye drops 1 drp OPHTHALMIC (EYE) BEDTIME 01/06/22 01/06/22 levothyroxine 125 mcg tablet 1 tab PO QAM 01/06/22 01/06/22 lisinopril 30 mg tablet 1 tab PO DAILY 01/06/22 01/06/22 metformin 1,000 mg tablet 1 tab PO BID 01/06/22 01/06/22 trazodone 50 mg tablet 1.5 tab PO BEDTIME 01/06/22 01/06/22 Previous Rx's Medication Instructions Recorded sodium zirconium cyclosilicate 5 5 g PO DAILY #7 ea 01/09/22 gram oral powder packet (Lokelma) cephalexin 500 mg capsule 500 mg PO Q6H 7 Days #28 cap 04/15/22 doxycycline hyclate 100 mg tablet 100 mg PO BID #14 tab 04/15/22 Allergies Allergy/AdvReac Type Severity Reaction Status Date / Time No Known Allergies Allergy Verified 04/15/22 18:42 Review of Systems Review of Systems: Constitutional: No Fever, No Chills Cardiovascular: No Chest Pain, No SOB Respiratory: No Cough, No Sputum Gastrointestinal: No Nausea, No Vomiting, No Diarrhea, No abdominal Pain Musculoskeletal: + joint pain, No Myalgias Skin: No Skin Lesions, No rash, No skin redness Neuro: No Weakness, + Numbness, No Dizziness, No Headache Psych: No Anxiety/Panic, No Depression Heme/Lymph: No Bruising, No Lymphadenopathy Endocrine: No Polyuria, No Polydipsia PMFSH Past Medical History Medical History Anxiety CKD stage 3 secondary to diabetes Depression Hyperlipemia Family History Family History Other Hypertension Social History Social History Household Members: Family Housing: House Do you presently have visiting nurse or other home services: No Patient Tobacco Use Status: Never used Tobacco Advance Directives: No Advance Directives Information Provided: No service: No Current occupational status: disabled Physical Exam Vital Signs: Vital Signs: Last Vital Signs Temp 97 F 04/15/22 18:40 Pulse 94 04/15/22 18:40 Resp 18 04/15/22 18:40 BP 139/75 04/15/22 18:40 Pulse Ox 97 04/15/22 18:40 BMI result Body Mass Index 50.1 Appearance: Alert. Oriented X3. No acute distress. HEENT: normal inspection CVS: Normal heart rate and rhythm. Pulses normal. Respiratory: No respiratory distress. Skin: Skin warm and dry. Normal skin color. Normal skin turgor. No rashes. Extremities: Inspection of the left foot reveals [id number] erythema of the 1st MTP with erythema extending just below into the foot area. No exquisite tenderness with range of motion of the great toe. Toe is numb on the plantar aspect which is chronic. It is warm and well perfused. No open wounds. Neuro: Oriented X 3. No motor deficit. + sensory deficit. Steady gait. Course Course Course Narrative: 57-year-old female with history of diabetes and neuropathy presents to the ER for evaluation of left 1st MTP redness and warmth over the last 2 weeks. She follows closely with industrial organization manager and has history of an infection in the same area on the right foot in the past. She has no evidence of gout or pseudogout with minimal tenderness with range of motion and movement of the toe. The area is slightly warm, minimal swelling. Does not appear to be a septic joint. Will start on double coverage antibiotics and she has an appointment with her industrial organization manager next week. Critical Care Time Critical Care Time Critical Care Time: No Discharge Plan Discharge Clinical Impression: Cellulitis of great toe Patient Disposition: Home, Self-Care Instructions: Cellulitis (DC) Additional Instructions: Your x-ray today did not show any fractures or bony destruction, there was nonspecific soft tissue swelling in the area of the redness on your foot. Recommend taking the prescribed antibiotics as directed, take the entire course. Follow-up with your industrial organization manager next week as scheduled. If you develop new or worsening symptoms call 911 or come back to the ER for further evaluation. Prescriptions: New doxycycline hyclate 100 mg tablet 100 mg PO BID Qty: 14 0RF cephalexin 500 mg capsule 500 mg PO Q6H 7 Days Qty: 28 0RF No Action latanoprost 0.005 % drops 1 drp ophthalmic (eye) BEDTIME 0RF atorvastatin 80 mg tablet 1 tab PO DAILY 0RF clonidine HCl 0.1 mg tablet 2 tab PO BEDTIME 0RF trazodone 50 mg tablet 1.5 tab PO BEDTIME 0RF citalopram 10 mg tablet 1 tab PO DAILY 0RF metformin 1,000 mg tablet 1 tab PO BID 0RF levothyroxine 125 mcg tablet 1 tab PO QAM 0RF lisinopril 30 mg tablet 1 tab PO DAILY 0RF Hold Instructions: Resume on 01/12/22. gabapentin 300 mg capsule 1 cap PO DAILY PRN (Reason: Pain) 0RF hydrochlorothiazide 25 mg tablet 1 tab PO DAILY 0RF albuterol sulfate 90 mcg/actuation HFA aerosol inhaler 2 puff inhalation Q6H PRN (Reason: wheezing) 0RF diltiazem HCl [DILT-XR] 180 mg capsule,ext.rel 24h degradable 1 cap PO DAILY 0RF lamotrigine 100 mg tablet 1 tab PO DAILY 0RF ezetimibe 10 mg tablet 1 tab PO DAILY 0RF bupropion HCl 300 mg tablet extended release 24 hr 1 tab PO DAILY 0RF bupropion HCl 150 mg tablet extended release 24 hr 1 tab PO DAILY 0RF Trulicity 1.5 mg/0.5 mL pen injector 0.5 ml subcut QWEEK 0RF Lokelma 5 gram powder in packet 5 g PO DAILY Qty: 7 0RF Interventions: ED Discharge Assessment Last Done: 04/15/22 20:48
== END 2022-04-15 20:49 | disposition home or self-care (01) ==
PROVIDERS: Emergency Provider Internal Medicine; PCP Internal Medicine
DX: L03.032 Cellulitis of left toe (principal); E11.40 Type 2 diabetes mellitus with diabetic neuropathy, unspecified; I12.9 Hypertensive chronic kidney disease with stage 1 through stage 4 chronic kidney disease, or unspecified chronic kidney disease; E11.22 Type 2 diabetes mellitus with diabetic chronic kidney disease; N18.30 Chronic kidney disease, stage 3 unspecified; J45.909 Unspecified asthma, uncomplicated
CPT/HCPCS: 73660; 99283

== ENCOUNTER 2022-07-13 18:49 | Inpatient (IN) | payer MEDICARE, MEDICAID, SELFPAY ==
--- NOTE | ~2022-07-13 | CT_ITS ---
EXAMINATION: CT HEAD WITHOUT CONTRAST CLINICAL INFORMATION: Dizziness COMPARISON: 01/06/2022 TECHNIQUE: Contiguous axial imaging was performed from the skull base to vertex without intravenous administration of contrast. This CT examination was performed using dose optimization techniques as appropriate, variously including the following: *Automated exposure control *Adjustment of mA and/or kV according to patient size (this includes techniques or standardized protocols for targeted exams where dose is matched to indication/reason for exam; i.e. extremities or head) *Use of iterative reconstruction technique DLP: 669 mGy-cm FINDINGS: The brain parenchyma has normal attenuation. The chase-white matter differentiation is well preserved. No evidence of an acute major vascular territory infarction. No intracranial hemorrhage, extra-axial fluid collection, focal mass effect or midline shift. The ventricles have normal size and configuration; no hydrocephalus. The brainstem and cerebellum have a normal appearance. The cerebellar tonsils are in normal position. The calvarium is intact. Moderate mucosal thickening of left maxillary sinus. Otherwise, the visualized paranasal sinuses, mastoid air cells and middle ear cavities are well aerated. The orbits and globes are unremarkable. The temporomandibular joints are normal. CT/CT head/brain wo con IMPRESSION: No intracranial mass, hemorrhage or other acute intracranial pathology compared to the prior head CT from 01/06/2022.
--- NOTE | ~2022-07-13 | US_ITS ---
EXAMINATION: US EXTRACRANIAL CAROTID DUPLEX, BILATERAL CLINICAL INFORMATION: Dizziness. Blurry vision. COMPARISON: None TECHNIQUE: Real-time ultrasound and Doppler techniques (integrating B-mode 2-D vascular images, Doppler spectral analysis and color-flow Doppler imaging) were utilized to interrogate the extracranial carotid arteries, the vertebral arteries and proximal subclavian arteries bilaterally. The degree of stenosis is determined by criteria similar to NASCET. FINDINGS: Right Side: 1. There is no atherosclerotic plaque seen in the bifurcation/proximal ICA region. The right ICA is not well visualized. 2. The common carotid artery PSV proximally is 118 cm/s and distally 102 cm/s. 3. The proximal internal carotid artery velocities are 142 cm/s systolic and 32 cm/s diastolic. 4. The proximal external carotid artery PSV is 137 cm/s. 5. The vertebral artery shows antegrade flow. 6. The subclavian artery waveforms are normal. Left Side: 1. There is no atherosclerotic plaque seen in the bifurcation/proximal ICA region. 2. The common carotid artery PSV proximally is 118 cm/s and distally 124 cm/s. 3. The proximal internal carotid artery velocities are 130 cm/s systolic and 30 cm/s diastolic. 4. The proximal external carotid artery PSV is 140 cm/s. 5. The vertebral artery shows antegrade flow. 6. The subclavian artery waveforms are normal. US/US carotid duplex BI IMPRESSION: 1. RIGHT: The right ICA is not well visualized. No plaque. Slightly elevated velocities suggesting 50-79% ICA stenosis by peak systolic velocity criteria however this may be elevated due to patient's high blood pressure. 2. LEFT: No plaque. Slightly elevated velocities suggesting 50-79% ICA stenosis by peak systolic velocity criteria however this may be elevated due to patient high blood pressure.
--- NOTE | ~2022-07-13 | CT_ITS ---
EXAMINATION: CT HEAD WITHOUT CONTRAST CLINICAL INFORMATION: Blurry vision/dizziness COMPARISON: 07/13/2022 TECHNIQUE: Contiguous axial imaging was performed from the skull base to vertex without intravenous administration of contrast. This CT examination was performed using dose optimization techniques as appropriate, variously including the following: *Automated exposure control *Adjustment of mA and/or kV according to patient size (this includes techniques or standardized protocols for targeted exams where dose is matched to indication/reason for exam; i.e. extremities or head) *Use of iterative reconstruction technique DLP: 602 mGy-cm FINDINGS: There is no evidence of acute intracranial hemorrhage or territorial infarction. No abnormal mass effect or midline shift is seen. Zee to white matter differentiation is well preserved. No extra-axial fluid collections are identified. The ventricles are normal in size. There is no abnormal attenuation within the brain parenchyma. The osseous structures and soft tissues are normal. Mucosal thickening in the left maxillary sinus. CT/CT head/brain wo con IMPRESSION: No acute intracranial pathology. Left maxillary sinus disease.
[2022-07-13 19:09] VITALS: BP 107/32; BP 86/52; PULSE 59; PULSE 61; RESP 18; TEMP 37.1; O2SAT 97; BMI 52.7
--- NOTE | 2022-07-13 19:44 | ECG_ITS ---
Test Reason : dizziness Blood Pressure : / mmHG Vent. Rate : 056 BPM Atrial Rate : 056 BPM P-R Int : 150 ms QRS Dur : 084 ms QT Int : 448 ms P-R-T Axes : 041 019 019 degrees QTc Int : 432 ms Sinus bradycardia Otherwise normal ECG When compared with ECG of 20-FEB-2022 04:58, Heart rate has decreased Referred By: Veronica Tomlinson Electronically Signed By:LINDA GARCIA
--- NOTE | 2022-07-13 19:45 | ED.DIZZY ---
HPI - Dizziness General Chief Complaint: Dizziness Stated Complaint: dizziness Time Seen by Provider: 07/13/22 19:43 Source: patient Mode of arrival: ambulatory Limitations: no limitations History of Present Illness HPI Narrative: 57-year-old history of stage III kidney disorder presenting to the emergency department with complaints of dizziness/lightheadedness, near syncopal episode earlier today, malaise and fatigue x1 day. Patient tells me that she woke up at approximately 11:00 today, right when she woke up she felt dizzy, like the room was spinning and she also felt like she could not catch her balance, she tells me that this is not uncommon for her and this happens to her frequently, however usually doesn't last this long. She tells me that as the day went on she started feeling worse, at around noon she felt like her vision was going black and she felt like she was going to pass out, she tells me that this has never happened to her in the past. At this time she is complaining of dizziness, malaise, fatigue. She denies any chest pain, shortness of breath, vision changes, weakness, nausea, vomiting, abdominal pain, headache. MD elicited complaint: dizziness, lightheadedness and near syncope Related Data Home Medications Medication Instructions Recorded Confirmed albuterol sulfate 90 mcg/actuation 2 puff inhalation Q6H PRN wheezing 01/06/22 01/06/22 aerosol inhaler atorvastatin 80 mg tablet 1 tab PO DAILY 01/06/22 01/06/22 bupropion HCl 150 mg 24 hr tablet, 1 tab PO DAILY 01/06/22 01/06/22 extended release bupropion HCl 300 mg 24 hr tablet, 1 tab PO DAILY 01/06/22 01/06/22 extended release citalopram 10 mg tablet 1 tab PO DAILY 01/06/22 01/06/22 clonidine HCl 0.1 mg tablet 2 tab PO BEDTIME 01/06/22 01/06/22 diltiazem HCl 180 mg 1 cap PO DAILY 01/06/22 01/06/22 capsule,extended release 24 hr, controlled (DILT-XR) dulaglutide 1.5 mg/0.5 mL 0.5 ml subcut QWEEK 01/06/22 01/06/22 subcutaneous pen injector ([facility]) ezetimibe 10 mg tablet 1 tab PO DAILY 01/06/22 01/06/22 gabapentin 300 mg capsule 1 cap PO DAILY PRN Pain 01/06/22 01/06/22 hydrochlorothiazide 25 mg tablet 1 tab PO DAILY 01/06/22 01/06/22 lamotrigine 100 mg tablet 1 tab PO DAILY 01/06/22 01/06/22 latanoprost 0.005 % eye drops 1 drp ophthalmic (eye) BEDTIME 01/06/22 01/06/22 levothyroxine 125 mcg tablet 1 tab PO QAM 01/06/22 01/06/22 lisinopril 30 mg tablet 1 tab PO DAILY 01/06/22 01/06/22 metformin 1,000 mg tablet 1 tab PO BID 01/06/22 01/06/22 trazodone 50 mg tablet 1.5 tab PO BEDTIME 01/06/22 01/06/22 Previous Rx's Medication Instructions Recorded sodium zirconium cyclosilicate 5 5 g PO DAILY #7 ea 01/09/22 gram oral powder packet ([place]) cephalexin 500 mg capsule 500 mg PO Q6H 7 days #28 caps 04/15/22 doxycycline hyclate 100 mg tablet 100 mg PO BID #14 tabs 04/15/22 Allergies Allergy/AdvReac Type Severity Reaction Status Date / Time No Known Allergies Allergy Verified 07/13/22 20:08 Review of Systems Review of Systems: Constitutional : No Weight loss, No Fever, No Chills, No Fatigue, No Malaise ENT/Mouth : No sore throat, No Rhinorrhea Eyes: No Eye Pain, No Swelling, No Redness, + Vision changes Cardiovascular : No Chest Pain, No SOB, No Dyspnea on Exertion, No Orthopnea, No Edema, No Palpitations Respiratory : No Cough, No Sputum, No Wheezing Gastrointestinal : No Nausea, No Vomiting, No Diarrhea, No Constipation, No abdominal Pain, No Hematochezia, No Melena Genitourinary : No Dysuria, No Urinary Frequency, No Hematuria, Musculoskeletal : No joint pain, No Myalgias, No Joint Swelling Skin : No Skin Lesions, No rash Neuro : + Weakness, No Numbness, + Dizziness, No Headache Psych : No Anxiety/Panic, No Depression All other systems reviewed and are negative Yes all other systems are reviewed and are negative PMFSH Past Medical History Attestation statement: The following information was validated with the patient. Source: old records reviewed and nursing notes reviewed Medical History Anxiety CKD stage 3 secondary to diabetes Depression Hyperlipemia Family History Family History Other Hypertension Social History Social History Household Members: Family Housing: House Do you presently have visiting nurse or other home services: No Patient Tobacco Use Status: Never used Tobacco Advance Directives: No Advance Directives Information Provided: Yes service: No Current occupational status: disabled Physical Exam Vital Signs: Vital Signs: Last Vital Signs Temp 97.9 F 07/13/22 23:53 Pulse 62 07/13/22 23:53 Resp 18 07/13/22 23:53 BP 116/58 L 07/13/22 23:53 Pulse Ox 99 07/13/22 23:53 O2 Del Method 07/13/22 23:53 BMI result Body Mass Index 52.7 Patient is noted to be bradycardic, hypotensive. Appearance: Alert.? Oriented X3.? No acute distress.? Head: Normocephalic, atraumatic, no step-offs or deformities. Face symmetric with symmetric smile. Eyes: Pupils equal, round and reactive to light.? ENT: Pharynx normal.? Neck: Normal inspection.? Neck supple.? CVS: Normal heart rate and rhythm.? Pulses normal.? Respiratory: No respiratory distress.? Breath sounds normal.? Abdomen: Soft and nontender.? Skin: Skin warm and dry.? Normal skin color.? Normal skin turgor.? Extremities: No lower extremity edema.? No calf ttp. 5/5 strength to bilateral upper and lower extremities Back: No midline tenderness, no C-spine tenderness, full range of motion, no CVA tenderness bilaterally Neuro: Oriented X 3.? No motor deficit.? No sensory deficit. CN 2-12 intact . Normal [id number], [id number]. Negative pronator drift. Normal sensation to upper and lower extremities. Course Reevaluation(s) Reevaluation #1: Patient's CBC appears to be around baseline. Chemistry with a slightly low sodium, patient receiving IV fluids. BUN 30, creatinine 2.16, this is almost double patient's baseline. Troponin 7.6, repeat troponin will be obtained. UA with some leukocytosis, patient not complaining of urinary symptoms. Covid negative. Head CT no acute findings. Time: 22:05 Reevaluation #2: Lactic acid 2.4, elevated white blood cell count, low blood pressure on arrival, at this time infection is suspected, patient will be given antibiotics for possible UTI. I did speak to patient who tells me she thought she had a UTI last week but symptoms subsided. Time: 00:24 Reevaluation #3: Patient will be admitted to the hospitalist team Time: 00:47 MDM - Dizziness MDM Narrative Medical decision making narrative: 1945 57-year-old female presenting with dizziness, and near syncopal episode x1 day. Physical examination benign. Neuro nonfocal, cerebellar function intact. However, upon vital sign review it is noted the patient is bradycardic and hypotensive. History and physical examination was low suspicion for stroke, posterior stroke. Will rule out dehydration, electrolyte abnormalities, orthostatic hypotension. Likely vertigo. NIH stroke scale- 0 Plan at this time is to obtain basic labs, urine, troponin, CT of the head and brain without contrast, EKG, orthostatics vitals, COVID. Medical Records Attestation: I reviewed the patient's medical records. Lab Data Attestation: I reviewed the patient's lab results. Result diagrams: 07/13/22 20:59 07/13/22 20:59 Labs: Lab Results 07/13/22 07/13/22 07/13/22 Range/Units 20:59 20:59 20:59 WBC 12.1 H (4.8-10.8) X10*3/uL RBC 3.33 L (4.20-5.50) X10*6/uL Hgb 10.6 L (12.0-16.0) g/dl Hct 30.3 L (37.0-47.0) % MCV 91.0 (80.0-98.0) fL MCH 31.8 (27.0-33.0) pg MCHC 35.0 (31.0-35.0) g/dl RDW 12.4 (11.0-16.0) % Plt Count 335 D (160-400) X10*3/uL MPV 8.7 L (9.4-12.3) fL Immature Gran % (Auto) 0.2 (0.0-0.4) % Neut % (Auto) 44.2 L (45-73) % Lymph % (Auto) 44.8 H (20-40) % Parke % (Auto) 8.0 (2-11) % Eos % (Auto) 2.2 (0-4) % Baso % (Auto) 0.6 (0-2) % Lymph # (Auto) 5.4 H (1.2-4.9) X10*3/uL Parke # (Auto) 1.0 (0.1-1.2) X10*3/uL Eos # (Auto) 0.3 (0.0-0.4) X10*3/uL Baso # (Auto) 0.1 (0.0-0.2) X10*3/uL Abs Immat Gran (auto) 0.03 (0.00-0.03) X10*3/uL Absolute Neuts (auto) 5.3 (2.0-8.3) x10*3/uL Absolute Nucleated RBC 0.000 (0.0-0.012) X10*3/uL Nucleated RBC % (auto) 0.0 (0.0-0.2) /100WBC Smear Tech's Comments VERIFIED Sodium 134 L (135-145) mmol/L Potassium 4.8 (3.3-5.1) mmol/L Chloride 98 (96-108) mmol/L Carbon Dioxide 22 (22-29) mmol/L Anion Gap 19 (12-20) BUN 30 H D (9-16) mg/dL Creatinine 2.16 H (0.5-1.4) mg/dL Estim Creat Clear Calc 39.7 Estimated GFR 23 Random Glucose 103 (60-115) mg/dL Lactic Acid (0.5-2.0) mmol/L Calcium 8.5 D (8.4-10.2) mg/dL Magnesium 1.6 (1.6-2.6) mg/dL Total Bilirubin 0.4 (0.0-1.0) mg/dL AST 18 (5-31) U/L ALT 18 (0-31) U/L Alkaline Phosphatase 63 D (39-117) U/L Troponin I High Sens (<3.5-17.0) ng/L Total Protein 7.1 (6.5-8.0) g/dL Albumin 4.2 (3.5-5.0) g/dL Urine Color Urine Appearance Urine pH (5.0-8.0) Ur Specific [place] (1.005-1.025) Urine Protein (Neg-Trace) mg/dL Urine Glucose (UA) (Negative) mg/dL Urine Ketones (Negative) mg/dL Urine Blood (Negative) Urine Nitrite (Negative) Ur Leukocyte Esterase (Negative) Urine RBC (0-2) /HPF Urine WBC (0-5) /HPF Ur Squamous Epith Cells (0-2) /HPF Urine Bacteria (None Seen) Hyaline Casts (0-2) /LPF COVID-19 (DUSTIN) Negative (Negative) COVID-19 Clin Com See Note 07/13/22 07/13/22 07/14/22 Range/Units 20:59 20:59 00:04 WBC (4.8-10.8) X10*3/uL RBC (4.20-5.50) X10*6/uL Hgb (12.0-16.0) g/dl Hct (37.0-47.0) % MCV (80.0-98.0) fL MCH (27.0-33.0) pg MCHC (31.0-35.0) g/dl RDW (11.0-16.0) % Plt Count (160-400) X10*3/uL MPV (9.4-12.3) fL Immature Gran % (Auto) (0.0-0.4) % Neut % (Auto) (45-73) % Lymph % (Auto) (20-40) % Parke % (Auto) (2-11) % Eos % (Auto) (0-4) % Baso % (Auto) (0-2) % Lymph # (Auto) (1.2-4.9) X10*3/uL Parke # (Auto) (0.1-1.2) X10*3/uL Eos # (Auto) (0.0-0.4) X10*3/uL Baso # (Auto) (0.0-0.2) X10*3/uL Abs Immat Gran (auto) (0.00-0.03) X10*3/uL Absolute Neuts (auto) (2.0-8.3) x10*3/uL Absolute Nucleated RBC (0.0-0.012) X10*3/uL Nucleated RBC % (auto) (0.0-0.2) /100WBC Smear Tech's Comments Sodium (135-145) mmol/L Potassium (3.3-5.1) mmol/L Chloride (96-108) mmol/L Carbon Dioxide (22-29) mmol/L Anion Gap (12-20) BUN (9-16) mg/dL Creatinine (0.5-1.4) mg/dL Estim Creat Clear Calc Estimated GFR Random Glucose (60-115) mg/dL Lactic Acid 2.4 H* (0.5-2.0) mmol/L Calcium (8.4-10.2) mg/dL Magnesium (1.6-2.6) mg/dL Total Bilirubin (0.0-1.0) mg/dL AST (5-31) U/L ALT (0-31) U/L Alkaline Phosphatase (39-117) U/L Troponin I High Sens 7.6 (<3.5-17.0) ng/L Total Protein (6.5-8.0) g/dL Albumin (3.5-5.0) g/dL Urine Color Yellow Urine Appearance Clear Urine pH 5.5 (5.0-8.0) Ur Specific [place] 1.015 (1.005-1.025) Urine Protein Negative (Neg-Trace) mg/dL Urine Glucose (UA) Negative (Negative) mg/dL Urine Ketones Trace (Negative) mg/dL Urine Blood Negative (Negative) Urine Nitrite Negative (Negative) Ur Leukocyte Esterase Small (1+) H (Negative) Urine RBC 0-2 (0-2) /HPF Urine WBC 6-10 H (0-5) /HPF Ur Squamous Epith Cells 11-20 (0-2) /HPF Urine Bacteria None Seen (None Seen) Hyaline Casts 3-5 (0-2) /LPF COVID-19 (DUSTIN) (Negative) COVID-19 Clin Com ECG Data Attestation: I personally reviewed and interpreted this ECG as follows: ECG interpretation date: 07/13/22 ECG interpretation time: 23:29 Prior ECG tracings: available for review Interpretation: Ventricular rate of 56, VT normal, QRS normal, QT/QTC normal. EKG with sinus bradycardia, no ST elevations or inversions concerning for ischemia. No significant changes when compared to EKG from January 2022. Critical Care Time Critical Care Time Critical Care Time: No Discharge Plan Discharge Clinical Impression: Hypotension, Dizziness, JEANNIE (acute kidney injury), Near syncope, UTI (urinary tract infection) Patient Disposition: Admitted As Inpatient Prescriptions: No Action latanoprost 0.005 % drops 1 drp ophthalmic (eye) BEDTIME atorvastatin 80 mg tablet 1 tab PO DAILY clonidine HCl 0.1 mg tablet 2 tab PO BEDTIME trazodone 50 mg tablet 1.5 tab PO BEDTIME citalopram 10 mg tablet 1 tab PO DAILY metformin 1,000 mg tablet 1 tab PO BID levothyroxine 125 mcg tablet 1 tab PO QAM lisinopril 30 mg tablet 1 tab PO DAILY Hold Instructions: Resume on 01/12/22. gabapentin 300 mg capsule 1 cap PO DAILY PRN (Reason: Pain) hydrochlorothiazide 25 mg tablet 1 tab PO DAILY albuterol sulfate 90 mcg/actuation HFA aerosol inhaler 2 puff inhalation Q6H PRN (Reason: wheezing) diltiazem HCl [DILT-XR] 180 mg capsule,ext.rel 24h degradable 1 cap PO DAILY lamotrigine 100 mg tablet 1 tab PO DAILY ezetimibe 10 mg tablet 1 tab PO DAILY bupropion HCl 300 mg tablet extended release 24 hr 1 tab PO DAILY bupropion HCl 150 mg tablet extended release 24 hr 1 tab PO DAILY Trulicity 1.5 mg/0.5 mL pen injector 0.5 ml subcut QWEEK Lokelma 5 gram powder in packet 5 g PO DAILY Qty: 7 0RF doxycycline hyclate 100 mg tablet 100 mg PO BID Qty: 14 0RF cephalexin 500 mg capsule 500 mg PO Q6H 7 Days Qty: 28 0RF
[2022-07-13] MEDS: ondansetron HCL 4 MG/2 ML VIAL IVPUSH (19:56)
[2022-07-13] MEDS: Meclizine HCl 25 MG TABLET PO (19:56)
[2022-07-13] MEDS: 0.9 % Sodium Chloride 1,000 ML 999 ML IV ×3 (19:57→23:32)
[2022-07-13 21:06] LABS: Basophils Absolute Auto 0.1 X10*3/uL (0.0-0.2); Basophils Percent Auto 0.6 % (0-2); Eosinophils Absolute Auto 0.3 X10*3/uL (0.0-0.4); Eosinophils Percent Auto 2.2 % (0-4); Hematocrit 30.3 % (37.0-47.0); Hemoglobin 10.6 g/dl (12.0-16.0); Imm Gran Abs Auto 0.03 X10*3/uL (0.00-0.03); Imm Gran Pct Auto 0.2 % (0.0-0.4); Lymphocytes Absolute Auto 5.4 X10*3/uL (1.2-4.9); Lymphocytes Percent Auto 44.8 % (20-40); MANUAL DIFF FLAG SCAN; Mean Corpuscular Hemoglobin 31.8 pg (27.0-33.0); Mean Platelet Volume 8.7 fL (9.4-12.3); Neutrophils Absolute Auto 5.3 x10*3/uL (2.0-8.3); Neutrophils Percent Auto 44.2 % (45-73); Platelet Count 335 X10*3/uL (160-400); Red Blood Count 3.33 X10*6/uL (4.20-5.50); Red Cell Distribution Width 12.4 % (11.0-16.0); SCAN SMEAR FLAG 1; White Blood Count 12.1 X10*3/uL (4.8-10.8)
[2022-07-13 21:08] LABS: Appearance Urine Clear; Color Urine Yellow; Glucose Urine UA Negative (Negative); Leukocyte Esterase Urine Small (1+) (Negative); Nitrite Urine Negative (Negative); PH 5.5 (5.0-8.0); Specific Gravity - Urine 1.015 (1.005-1.025); Urine Blood Negative (Negative); Urine Ketones Trace mg/dL (Negative); Urine Protein Negative (Neg-Trace)
[2022-07-13 21:21] LABS: COVID-19 Test Negative (Negative)
[2022-07-13 21:22] LABS: Alanine Aminotransferase 18 U/L (0-31); Albumin Level 4.2 g/dL (3.5-5.0); Alkaline Phosphatase 63 U/L (39-117); Anion Gap 19 (12-20); Aspartate Amino Transferase 18 U/L (5-31); Bilirubin Total 0.4 mg/dL (0.0-1.0); Blood Urea Nitrogen 30 mg/dL (9-16); Calcium 8.5 mg/dL (8.4-10.2); Carbon Dioxide 22 mmol/L (22-29); Chloride 98 mmol/L (96-108); Creatinine Clr Calc Pharmacy 39.7; Estimated Glomerular Filt Rate 23; Glucose Random 103 mg/dL (60-115); Magnesium 1.6 mg/dL (1.6-2.6); Potassium 4.8 mmol/L (3.3-5.1); Sodium 134 mmol/L (135-145); Total Protein 7.1 g/dL (6.5-8.0)
[2022-07-13 21:24] LABS: Troponin-I High Sensitivity 7.6 ng/L (<3.5-17.0)
[2022-07-13 21:27] LABS: SLIDE REVIEW VERIFIED
[2022-07-13 21:34] LABS: Bacteria Urine None Seen (None Seen); RBC Urine 0-2 /HPF (0-2); UACC Culture Trigger YES
--- NOTE | 2022-07-13 23:19 | PC.NURSE ---
IV fluids infusing slowly. Will continue to remind pt to keep her arm extended so fluids will infuse. Second bag of NS is currently infusing.
[2022-07-13 23:36] VITALS: BP 103/46; PULSE 63
[2022-07-13 23:39] VITALS: BP 111/61; PULSE 67
[2022-07-13 23:40] VITALS: BP 117/59; PULSE 73
[2022-07-13 23:53] VITALS: BP 116/58; PULSE 62; RESP 18; TEMP 36.6; O2SAT 99
[2022-07-14] VITALS (11 sets, daily range): BP systolic 100–170; BP diastolic 43–80; PULSE 61–82; RESP 14–20; TEMP 36.1–37; O2SAT 93–97; BMI 52.5
[2022-07-14 00:23] LABS: Lactic Acid 2.4 mmol/L (0.5-2.0)
[2022-07-14 00:49] LABS: Troponin-I High Sensitivity 6.3 ng/L (<3.5-17.0)
--- NOTE | 2022-07-14 01:03 | PM.IMHP ---
History of Present Illness Date of Service: 07/13/22 Chief Complaint: dizziness 57-year-old female with past medical history of CKD stage 3, depression, hyperlipidemia, anxiety presents to the hospital with complaints of presyncopal episode. Patient reports that she has been feeling dizzy all day and as she was getting out of her car she almost blacked out, this lasted few seconds, and she had no fall or head injury. She reports that about few days ago she had an episode of dysuria but that has resolved, she denies having any fever or chills, reports good p.o. intake with no dehydration, reports no headache or change in vision, no chest pain palpitations, no abdominal pain nausea or vomiting, no diarrhea constipation, no urinary symptoms at this time and no lower extremity edema. On arrival to the ED patient hemodynamically stable and found to have blood pressure of 86/52 Labs were significant for WBC count of 12.1, hemoglobin of 10.6, hematocrit 30.3, sodium of 134, creatinine of 2.16 with a baseline of around 1.15, lactic acid of 2.4, UA positive for small leukocyte Estrace and WBC Patient given IV fluids and will be admitted for further management Review of Systems Review of Systems: Yes all other systems are reviewed and are negative [facility] Medical History (Updated 07/14/22 @ 07:00 by Marilyn Chaudhari MD) Anxiety CKD stage 3 secondary to diabetes Depression Diabetes Hyperlipemia Hypertension Family History Other Hypertension Surgical History (Updated 07/14/22 @ 06:58 by Marilyn Chaudhari MD) History of cholecystectomy Social History Household Members: Family Housing: House Do you presently have visiting nurse or other home services: No Patient Tobacco Use Status: Never used Tobacco Advance Directives: No Advance Directives Information Provided: Yes service: No Current occupational status: disabled Meds Allergies Allergy/AdvReac Type Severity Reaction Status Date / Time No Known Allergies Allergy Verified 07/13/22 20:08 Active Medications: Current Medications Acetaminophen (Acetaminophen 325 Mg Tablet) 650 mg PO Q6H PRN PRN Reason: Pain, Mild (Pain Scale 1-3) Docusate Sodium (Docusate Sodium 100 Mg Capsule) 100 mg PO DAILY PRN PRN Reason: Constipation Enoxaparin Sodium (Enoxaparin Sodium 40 Mg/0.4 Ml Syringe) 40 mg SUBCUT Q24H [facility] Ceftriaxone Sodium 1 gm/ (Sodium Chloride) 50 mls @ 100 mls/hr IV Q24H [facility] Lactated Ringer's (Lr) 1,000 mls @ 100 mls/hr IVCONT .Q10H [facility] Ondansetron HCl (Ondansetron Hcl 4 Mg/2 Ml Vial) 4 mg IVPUSH Q8H PRN PRN Reason: Nausea and Vomiting Sodium Chloride (0.9 % Sodium Chloride Flush 3 Ml Syringe) 3 ml IVFLUSH QSHIFT [facility] Home Medications Medication Instructions Recorded Confirmed Last Taken Type albuterol sulfate 90 mcg/actuation 2 puff inhalation Q6H PRN wheezing 01/06/22 01/06/22 Unknown History aerosol inhaler atorvastatin 80 mg tablet 1 tab PO DAILY 01/06/22 01/06/22 Unknown History bupropion HCl 150 mg 24 hr tablet, 1 tab PO DAILY 01/06/22 01/06/22 Unknown History extended release bupropion HCl 300 mg 24 hr tablet, 1 tab PO DAILY 01/06/22 01/06/22 Unknown History extended release citalopram 10 mg tablet 1 tab PO DAILY 01/06/22 01/06/22 Unknown History clonidine HCl 0.1 mg tablet 2 tab PO BEDTIME 01/06/22 01/06/22 Unknown History diltiazem HCl 180 mg 1 cap PO DAILY 01/06/22 01/06/22 Unknown History capsule,extended release 24 hr, controlled (DILT-XR) dulaglutide 1.5 mg/0.5 mL 0.5 ml subcut QWEEK 01/06/22 01/06/22 Unknown History subcutaneous pen injector (Trulicity) ezetimibe 10 mg tablet 1 tab PO DAILY 01/06/22 01/06/22 Unknown History gabapentin 300 mg capsule 1 cap PO DAILY PRN Pain 01/06/22 01/06/22 Unknown History hydrochlorothiazide 25 mg tablet 1 tab PO DAILY 01/06/22 01/06/22 Unknown History lamotrigine 100 mg tablet 1 tab PO DAILY 01/06/22 01/06/22 Unknown History latanoprost 0.005 % eye drops 1 drp ophthalmic (eye) BEDTIME 01/06/22 01/06/22 Unknown History levothyroxine 125 mcg tablet 1 tab PO QAM 01/06/22 01/06/22 Unknown History lisinopril 30 mg tablet 1 tab PO DAILY 01/06/22 01/06/22 Unknown History metformin 1,000 mg tablet 1 tab PO BID 01/06/22 01/06/22 Unknown History trazodone 50 mg tablet 1.5 tab PO BEDTIME 01/06/22 01/06/22 Unknown History Physical Exam Vital Signs and Narrative: Vital Signs: Last Vital Signs Temp 97.9 F 07/13/22 23:53 Pulse 62 07/13/22 23:53 Resp 18 07/13/22 23:53 BP 116/58 L 07/13/22 23:53 Pulse Ox 99 07/13/22 23:53 O2 Del Method 07/13/22 23:53 BMI result Body Mass Index 52.7 Const: General: cooperative and no acute distress Orientation/consciousness: patient oriented x3 Eyes: General: appearance normal, both eyes and all related structures Resp: Effort & Inspection: normal respiratory effort Auscultation: clear to auscultation bilaterally Cardio: Rate: regular rate Rhythm: regular rhythm GI: Palpation (GI): Soft to palpation Auscultation: normal bowel sounds : Other: no costovertebral angle tenderness, no suprapubic tenderness Skin: General skin exam: no rashes or lesions noted Neuro: General: patient oriented x3 Cognition (Neuro): normal cognition Extrem: General: Yes normal to inspection and Yes no pedal edema Results Labs CBC and Chem 7: 07/14/22 04:58 07/14/22 04:58 Labs: Laboratory Results - last 24 hr 07/13/22 07/13/22 07/13/22 20:59 20:59 20:59 MCV 91.0 MCH 31.8 MCHC 35.0 RDW 12.4 Plt Count 335 D MPV 8.7 L Immature Gran % (Auto) 0.2 Neut % (Auto) 44.2 L Lymph % (Auto) 44.8 H [place] % (Auto) 8.0 Eos % (Auto) 2.2 Baso % (Auto) 0.6 Lymph # (Auto) 5.4 H [place] # (Auto) 1.0 Eos # (Auto) 0.3 Baso # (Auto) 0.1 Abs Immat Gran (auto) 0.03 Absolute Neuts (auto) 5.3 Absolute Nucleated RBC 0.000 Nucleated RBC % (auto) 0.0 Smear Tech's Comments VERIFIED Anion Gap 19 Estim Creat Clear Calc 39.7 Estimated GFR 23 Random Glucose 103 Lactic Acid Calcium 8.5 D Magnesium 1.6 Total Bilirubin 0.4 AST 18 ALT 18 Alkaline Phosphatase 63 D Total Protein 7.1 Albumin 4.2 Urine Color Urine Appearance Urine pH Ur Specific [place] Urine Protein Urine Glucose (UA) Urine Ketones Urine Blood Urine Nitrite Ur Leukocyte Esterase Urine RBC Urine WBC Ur Squamous Epith Cells Urine Bacteria Hyaline Casts COVID-19 (DUSTIN) Negative COVID-19 Clin Com See Note 07/13/22 07/14/22 20:59 00:04 MCV MCH MCHC RDW Plt Count MPV Immature Gran % (Auto) Neut % (Auto) Lymph % (Auto) [place] % (Auto) Eos % (Auto) Baso % (Auto) Lymph # (Auto) [place] # (Auto) Eos # (Auto) Baso # (Auto) Abs Immat Gran (auto) Absolute Neuts (auto) Absolute Nucleated RBC Nucleated RBC % (auto) Smear Tech's Comments Anion Gap Estim Creat Clear Calc Estimated GFR Random Glucose Lactic Acid 2.4 H* Calcium Magnesium Total Bilirubin AST ALT Alkaline Phosphatase Total Protein Albumin Urine Color Yellow Urine Appearance Clear Urine pH 5.5 Ur Specific [place] 1.015 Urine Protein Negative Urine Glucose (UA) Negative Urine Ketones Trace Urine Blood Negative Urine Nitrite Negative Ur Leukocyte Esterase Small (1+) H Urine RBC 0-2 Urine WBC 6-10 H Ur Squamous Epith Cells 11-20 Urine Bacteria None Seen Hyaline Casts 3-5 COVID-19 (DUSTIN) COVID-19 Clin Com Imaging Radiologist's Impressions: Impressions Head CT 07/13/22 19:55 IMPRESSION: No intracranial mass, hemorrhage or other acute intracranial pathology compared to the prior head CT from 01/06/2022. Assessment and Plan (1) Sepsis: Status: Acute (2) Near syncope: Status: Acute (3) JEANNIE (acute kidney injury): Status: Acute (4) UTI (urinary tract infection): Status: Acute Plan 57-year-old female with past medical history of depression anxiety, HLD, and hyperlipidemia as well as CKD and hypertension presents to the hospital with near syncopal episode # sepsis - likely secondary to UTI - has hypotension, lactic acidosis, leukocytosis, afebrile - will start on IV antibiotics - follow cultures - IV fluids # JEANNIE - likely secondary to prerenal as well as dehydration in the setting of sepsis - continue IV fluids - follow BMP # near-syncope - likely secondary to hypotension - monitor # UTI - had 1 day of symptoms but currently asymptomatic - given the sepsis will treat her UTI - follow blood and urine cultures # depression anxiety - continue home medications # hypertension - was hypotensive on arrival, blood pressure improved after IV fluid - hold antihypertensives until patient is more stable DVT prophylaxis: Lovenox given need for IV antibiotics will admit patient and she will require minimal 2 night hospital stay for further management and evaluation Quality Stroke Does the patient have a stroke diagnosis?: No VTE Prior VTE?: No VTE Risk Level:: Medical - moderate - high VTE Device Contraindication: Treatment Not Indicated VTE Drug Contraindication: N/A - Med Ordered
[2022-07-14] MEDS: 0.9 % Sodium Chloride 1,000 ML 999 ML IV (02:06)
[2022-07-14 02:09] LABS: Reflex Lactate? Lactic Acid Added
[2022-07-14 02:56] LABS: ~Lactic Acid-LAB USE ONLY 2.3 mmol/L (0.5-2.0)
[2022-07-14] MEDS: cefTRIAXone sodium 1 GM in 0.9 % Sodium Chloride 50 ML IV (03:08)
[2022-07-14] MEDS: Enoxaparin Sodium 40 MG/0.4 ML SYRINGE SUBCUT (03:27)
[2022-07-14] MEDS: Lactated Ringers 1,000 ML 100 ML IVCONT ×2 (03:28→19:18)
[2022-07-14 04:38] LABS: Reflex Lactate? 2 Y
[2022-07-14 05:02] LABS: Basophils Percent Auto 0.3 % (0-2); Eosinophils Absolute Auto 0.3 X10*3/uL (0.0-0.4); Eosinophils Percent Auto 3.4 % (0-4); Hematocrit 27.9 % (37.0-47.0); Hemoglobin 9.6 g/dl (12.0-16.0); Imm Gran Abs Auto 0.02 X10*3/uL (0.00-0.03); Imm Gran Pct Auto 0.2 % (0.0-0.4); Lymphocytes Absolute Auto 4.3 X10*3/uL (1.2-4.9); Lymphocytes Percent Auto 49.5 % (20-40); MANUAL DIFF FLAG NO; Mean Corpuscular HGB Conc 34.4 g/dl (31.0-35.0); Mean Corpuscular Hemoglobin 31.2 pg (27.0-33.0); Mean Corpuscular Volume 90.6 fL (80.0-98.0); Mean Platelet Volume 8.3 fL (9.4-12.3); Monocytes Absolute Auto 0.8 X10*3/uL (0.1-1.2); Monocytes Percent Auto 8.9 % (2-11); Neutrophils Absolute Auto 3.3 x10*3/uL (2.0-8.3); Neutrophils Percent Auto 37.7 % (45-73); Platelet Count 269 X10*3/uL (160-400); Red Blood Count 3.08 X10*6/uL (4.20-5.50); Red Cell Distribution Width 12.3 % (11.0-16.0); White Blood Count 8.7 X10*3/uL (4.8-10.8)
[2022-07-14 05:14] LABS: ~Lactic Acid-LAB USE ONLY 1.6 mmol/L (0.5-2.0)
[2022-07-14 05:46] LABS: Anion Gap 14 (12-20); Blood Urea Nitrogen 25 mg/dL (9-16); Calcium 7.8 mg/dL (8.4-10.2); Carbon Dioxide 22 mmol/L (22-29); Chloride 105 mmol/L (96-108); Creatinine Clr Calc Pharmacy 49.3; Estimated Glomerular Filt Rate 30; Glucose Random 94 mg/dL (60-115); Potassium 4.4 mmol/L (3.3-5.1); Sodium 137 mmol/L (135-145)
--- NOTE | 2022-07-14 09:18 | PHA.MEDREC ---
Pharmacy Consult ? Medication Reconciliation Pharmacy has completed the medication reconciliation. Patient brought with them bags of their medications. Patient claims they take omeprazole instead of famotidine
[2022-07-14] MEDS: lamoTRIgine 100 MG TABLET PO (10:44)
[2022-07-14] MEDS: dilTIAZem HCL CD 180 MG CAP.ER.24H PO (10:44)
--- NOTE | 2022-07-14 12:36 | HO.PM.IMPN ---
Subjective Subjective Date of Service: 07/14/22 Interval History: seen and examined this morning Follow-up for JEANNIE,Dizziness blood pressure improved, dizziness resolved. Renal function improving but not yet back to baseline No specific complaints this morning Review of Systems Review of Systems: Yes all other systems are reviewed and are negative Constitutional Constitutional: Denies chills and Denies fever(s) ENT Ears, Nose, Mouth, and Throat: Denies dizziness Cardiovascular Cardiovascular: Denies chest pain, Denies palpitations and Denies dyspnea Respiratory Respiratory: Denies cough and Denies dyspnea Gastrointestinal Gastrointestinal: Denies abdominal pain Neurologic Neurologic: Denies dizziness Endocrine Endocrine: Denies palpitations Physical Exam Vital Signs: Vital Signs: Last Vital Signs Temp 97.2 F 07/14/22 07:51 Pulse 70 07/14/22 10:41 Resp 16 07/14/22 07:51 BP 114/55 L 07/14/22 10:41 Pulse Ox 97 07/14/22 07:51 O2 Del Method 07/14/22 07:51 BMI result Body Mass Index 52.7 Const: General: cooperative, comfortable, no acute distress, alert and awake Nutritional Appearance: obese Orientation/consciousness: patient oriented x3 Resp: Effort & Inspection: normal respiratory effort and able to speak in complete sentences Auscultation: clear to auscultation bilaterally Cardio: Rate: regular rate Heart sounds: S1 normal heart sound present and S2 normal heart sound present GI: Inspection: No distended and Yes obesity Palpation (GI): Soft to palpation and nontender Neuro: General: patient oriented x3 Extrem: General: Yes no pedal edema Objective Data Active Medications Acetaminophen (Acetaminophen 325 Mg Tablet) 650 mg PO Q6H PRN PRN Reason: Pain, Mild (Pain Scale 1-3) Albuterol Sulfate (Albuterol Sulfate 90 Mcg 8 Gm Inhaler) 2 puff INHALE Q6H PRN PRN Reason: wheezing Atorvastatin Calcium (Atorvastatin Calcium 80 Mg Tablet) 80 mg PO DAILY RAJENDRA Bupropion HCl (Bupropion Hcl Xl 300 Mg Tab.Er.24h) 300 mg PO BEDTIME RAJENDRA Clonidine HCl (Clonidine Hcl 0.2 Mg Tablet) 0.2 mg PO BEDTIME RAJENDRA; Protocol Diltiazem HCl (Diltiazem Hcl Cd 180 Mg Cap.Er.24h) 180 mg PO DAILY RAJENDRA; Protocol Last Admin: 07/14/22 10:44 Dose: 180 mg Documented By: CAROL ANN Docusate Sodium (Docusate Sodium 100 Mg Capsule) 100 mg PO DAILY PRN PRN Reason: Constipation Ezetimibe (Ezetimibe 10 Mg Tablet) 10 mg PO DAILY [facility] Enoxaparin Sodium (Enoxaparin Sodium 40 Mg/0.4 Ml Syringe) 40 mg SUBCUT Q24H [facility] Last Admin: 07/14/22 03:27 Dose: 40 mg Documented By: NAZARIO Escitalopram Oxalate (Escitalopram Oxalate 20 Mg Tablet) 20 mg PO DAILY [facility] Gabapentin (Gabapentin 300 Mg Capsule) 300 mg PO BEDTIME [facility] Lactated Ringer's (Lr) 1,000 mls @ 100 mls/hr IVCONT .Q10H [facility] Last Admin: 07/14/22 11:13 Dose: Not Given Documented By: CAROL ANN Non-Admin Reason: IV Running Ceftriaxone Sodium 1 gm/ (Sodium Chloride) 50 mls @ 100 mls/hr IV Q24H [facility] Lamotrigine (Lamotrigine 100 Mg Tablet) 100 mg PO DAILY [facility] Last Admin: 07/14/22 10:44 Dose: 100 mg Documented By: CAROL ANN Latanoprost (Latanoprost 0.005 % Ophth Nati 2.5 Ml Drops) 1 drop EYE-BOTH BEDTIME [facility] Levothyroxine Sodium (Levothyroxine Sodium 125 Mcg Tablet) 125 mcg PO DAILY@0600 [facility] Omeprazole (Omeprazole 40 Mg Capsule.Dr) 40 mg PO DAILY@0630 [facility] Ondansetron HCl (Ondansetron Hcl 4 Mg/2 Ml Vial) 4 mg IVPUSH Q8H PRN PRN Reason: Nausea and Vomiting Pharmacy Consult (Consult Rx Perform Med Rec) 1 each MISCELLANE ONCE PRN PRN Reason: Consult order Sodium Chloride (0.9 % Sodium Chloride Flush 3 Ml Syringe) 3 ml IVFLUSH QSHIFT [facility] Last Admin: 07/14/22 07:49 Dose: Not Given Documented By: CAROL ANN Non-Admin Reason: IV Running Trazodone HCl (Trazodone Hcl 25 Mg Halftab) 75 mg PO BEDTIME [facility] Labs CBC & Chem 7: 07/14/22 04:58 07/14/22 04:58 Labs: Laboratory Results - last 24 hr 07/13/22 07/13/22 07/13/22 20:59 20:59 20:59 MCV 91.0 MCH 31.8 MCHC 35.0 RDW 12.4 Plt Count 335 D MPV 8.7 L Immature Gran % (Auto) 0.2 Neut % (Auto) 44.2 L Lymph % (Auto) 44.8 H [place] % (Auto) 8.0 Eos % (Auto) 2.2 Baso % (Auto) 0.6 Lymph # (Auto) 5.4 H [place] # (Auto) 1.0 Eos # (Auto) 0.3 Baso # (Auto) 0.1 Abs Immat Gran (auto) 0.03 Absolute Neuts (auto) 5.3 Absolute Nucleated RBC 0.000 Nucleated RBC % (auto) 0.0 Smear Tech's Comments VERIFIED Anion Gap 19 Estim Creat Clear Calc 39.7 Estimated GFR 23 Random Glucose 103 Lactic Acid Lactic Acid F/U @ 2Hr Lactic Acid F/U @ 4Hr Calcium 8.5 D Magnesium 1.6 Total Bilirubin 0.4 AST 18 ALT 18 Alkaline Phosphatase 63 D Total Protein 7.1 Albumin 4.2 Urine Color Urine Appearance Urine pH Ur Specific [place] Urine Protein Urine Glucose (UA) Urine Ketones Urine Blood Urine Nitrite Ur Leukocyte Esterase Urine RBC Urine WBC Ur Squamous Epith Cells Urine Bacteria Hyaline Casts COVID-19 (DUSTIN) Negative COVID-19 Clin Com See Note 07/13/22 07/14/22 07/14/22 20:59 00:04 02:35 MCV MCH MCHC RDW Plt Count MPV Immature Gran % (Auto) Neut % (Auto) Lymph % (Auto) [place] % (Auto) Eos % (Auto) Baso % (Auto) Lymph # (Auto) [place] # (Auto) Eos # (Auto) Baso # (Auto) Abs Immat Gran (auto) Absolute Neuts (auto) Absolute Nucleated RBC Nucleated RBC % (auto) Smear Tech's Comments Anion Gap Estim Creat Clear Calc Estimated GFR Random Glucose Lactic Acid 2.4 H* Lactic Acid F/U @ 2Hr 2.3 H* Lactic Acid F/U @ 4Hr Calcium Magnesium Total Bilirubin AST ALT Alkaline Phosphatase Total Protein Albumin Urine Color Yellow Urine Appearance Clear Urine pH 5.5 Ur Specific [place] 1.015 Urine Protein Negative Urine Glucose (UA) Negative Urine Ketones Trace Urine Blood Negative Urine Nitrite Negative Ur Leukocyte Esterase Small (1+) H Urine RBC 0-2 Urine WBC 6-10 H Ur Squamous Epith Cells 11-20 Urine Bacteria None Seen Hyaline Casts 3-5 COVID-19 (DUSTIN) COVID-19 Clin Com 07/14/22 07/14/22 07/14/22 04:58 04:58 04:58 MCV 90.6 MCH 31.2 MCHC 34.4 RDW 12.3 Plt Count 269 MPV 8.3 L Immature Gran % (Auto) 0.2 Neut % (Auto) 37.7 L Lymph % (Auto) 49.5 H [place] % (Auto) 8.9 Eos % (Auto) 3.4 Baso % (Auto) 0.3 Lymph # (Auto) 4.3 [place] # (Auto) 0.8 Eos # (Auto) 0.3 Baso # (Auto) 0.0 Abs Immat Gran (auto) 0.02 Absolute Neuts (auto) 3.3 Absolute Nucleated RBC 0.000 Nucleated RBC % (auto) 0.0 Smear Tech's Comments Anion Gap 14 Estim Creat Clear Calc 49.3 Estimated GFR 30 Random Glucose 94 Lactic Acid Lactic Acid F/U @ 2Hr Lactic Acid F/U @ 4Hr 1.6 Calcium 7.8 L D Magnesium Total Bilirubin AST ALT Alkaline Phosphatase Total Protein Albumin Urine Color Urine Appearance Urine pH Ur Specific [place] Urine Protein Urine Glucose (UA) Urine Ketones Urine Blood Urine Nitrite Ur Leukocyte Esterase Urine RBC Urine WBC Ur Squamous Epith Cells Urine Bacteria Hyaline Casts COVID-19 (DUSTIN) COVID-19 Clin Com Microbiology Microbiology Results: Microbiology 07/13/22 Unknown Urine Culture - Preliminary Urine clean catch - Urine chase top Culture too young to evaluate. Assessment and Plan (1) JEANNIE (acute kidney injury): Status: Acute Plan 57-year-old female with past medical history of depression anxiety, HLD, and hyperlipidemia as well as CKD and hypertension presents to the hospital with near syncopal episode possible sepsis had hypotension, lactic acidosis, leukocytosis on arrival. BP improved with IV and leukocytosis resolved. UA not overwhelmingly positive and patient asymptomatic. unclear if this represents sepsis - continue IV ceftriaxone started overnight - follow cultures - continue IV fluids JEANNIE on ckd3 creatinine improving from 2.16 to 1.7 - hold lisiopril, HCTZ - continue IVF - follow BMP near-syncope - likely secondary to hypotension - monitor UTI - had 1 day of symptoms but currently asymptomatic - given possible sepsis will treat her UTI - follow blood and urine cultures DM hold metformin, trulicity -SSI, POCs mood - continue home medications, will start bupropion at lower dose due to renal function hypertension - BP up to 170, resume cardizem - hold lisinopril, HCTZ for JEANNIE; resume clonidine tomorrow if BP allows - Follow BP closely hyperlipidemia Continue statin, Zetia Hypothyroidism Continue Synthroid morbid obesity BMI 52.8 Weight loss encouraged DVT prophylaxis: Lovenox attending - dr. Olivarez patient requires ongoing inpatient hospitalization due to IV fluid secondary to JEANNIE Quality Stroke Does the patient have a stroke diagnosis?: No VTE Prior VTE?: No VTE Risk Level:: Medical - moderate - high VTE Device Contraindication: Treatment Not Indicated VTE Drug Contraindication: N/A - Med Ordered
--- NOTE | 2022-07-14 12:55 | MHC.CM.PN ---
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 TO TRANSPORT
[2022-07-14 18:47] LABS: Glucose, Whole Blood 99 mg/dL (60-115)
--- NOTE | 2022-07-14 19:22 | PC.NURSE ---
Patient alert and oriented x 3. ambulates independently. orthostatics negative. Patient c/o blurry vision even though has her glasses on Dr. Molina notified. blood pressure wnl. Patient denies any pain or dizziness. see [facility] for vitals, labs. Will continue with continue with plan of care.
--- NOTE | 2022-07-14 19:27 | PM.EVENT ---
Event Note Date of Service: 07/14/22 Event Note: Dizziness/blurry vision: Patient walked to the bathroom and came back she felt lightheaded and blurry. Exam nonfocal Will obtain stat CT head, orthostatic vitals Unable to do CT angio head and neck given renal insufficiency carotid duplex Neurology consult for further recommendations
[2022-07-14] MEDS: 0.9 % Sodium Chloride 500 ML IV (19:35)
[2022-07-14] MEDS: Gabapentin 300 MG CAPSULE PO (21:29)
[2022-07-14] MEDS: traZODone HCL 25 MG HALFTAB 75 MG PO (21:29)
[2022-07-14] MEDS: buPROPion HCl XL 300 MG TAB.ER.24H PO (21:31)
[2022-07-14] MEDS: 0.9 % Sodium Chloride Flush 3 ML SYRINGE IVFLUSH (21:52)
[2022-07-14 22:48] LABS: Glucose, Whole Blood 139 mg/dL (60-115)
[2022-07-15] MEDS: Enoxaparin Sodium 40 MG/0.4 ML SYRINGE SUBCUT (02:15)
[2022-07-15] MEDS: cefTRIAXone sodium 1 GM in 0.9 % Sodium Chloride 50 ML IV (02:22)
[2022-07-15 03:51] VITALS: BP 131/61; PULSE 65; RESP 20; TEMP 36.2; O2SAT 94
[2022-07-15] MEDS: Lactated Ringers 1,000 ML 100 ML IVCONT (05:04)
[2022-07-15] MEDS: Levothyroxine Sodium 125 MCG TABLET PO (05:06)
[2022-07-15] MEDS: Omeprazole 40 MG CAPSULE.DR PO (05:08)
[2022-07-15 07:29] VITALS: BP 156/67; PULSE 66; RESP 16; TEMP 36.1; O2SAT 92
[2022-07-15 07:50] LABS: Glucose, Whole Blood 118 mg/dL (60-115)
[2022-07-15] MEDS: Atorvastatin Calcium 80 MG TABLET PO (08:14)
[2022-07-15] MEDS: lamoTRIgine 100 MG TABLET PO (08:14)
[2022-07-15] MEDS: Escitalopram Oxalate 20 MG TABLET PO (08:14)
[2022-07-15] MEDS: Ezetimibe 10 MG TABLET PO (08:14)
[2022-07-15] MEDS: dilTIAZem HCL CD 180 MG CAP.ER.24H PO (08:14)
[2022-07-15] MEDS: Acetaminophen 325 MG TABLET 650 MG PO (08:23)
[2022-07-15 09:05] LABS: Anion Gap 16 (12-20); Blood Urea Nitrogen 16 mg/dL (9-16); Calcium 8.9 mg/dL (8.4-10.2); Carbon Dioxide 24 mmol/L (22-29); Chloride 105 mmol/L (96-108); Creatinine Clr Calc Pharmacy 60.6; Estimated Glomerular Filt Rate 38; Glucose Random 129 mg/dL (60-115); Potassium 4.8 mmol/L (3.3-5.1); Sodium 140 mmol/L (135-145)
--- NOTE | 2022-07-15 11:23 | PM.NEUROCN ---
History of Present Illness Data of Consult Service Date: 07/15/22 Primary Care Provider: Lakeisha Hernández MD [facility] Reason for consult: Dizziness 57 years old woman with morbid obesity, diagnosis of obstructive sleep apnea on CPAP but not using CPAP machine on regular basis, came to hospital with complaints of dizziness blurred vision and weakness. No particular etiology was noted. When I saw her she was snoring. I was able to wake her up and she was not in any distress reporting that she was feeling better and did not have any Review of Systems Review of Systems: no recent cold or flu-like illness PMFSH Past Medical History Medical History (Updated 07/15/22 @ 11:26 by Estefany aPtricia MD) Anxiety CKD stage 3 secondary to diabetes Depression Diabetes Hyperlipemia Hypertension Family History Family History Other Hypertension Surgical History Surgical History (Updated 07/14/22 @ 06:58 by Marilyn Chaudhari MD) History of cholecystectomy Social History Social History Household Members: Family Housing: Apartment Do you presently have visiting nurse or other home services: No Alcohol intake: never Patient Tobacco Use Status: Never used Tobacco Second Hand Smoke Exposure: No service: No Current occupational status: disabled Meds Allergies Allergy/AdvReac Type Severity Reaction Status Date / Time No Known Allergies Allergy Verified 07/13/22 20:08 Active Medications: Current Medications Acetaminophen (Acetaminophen 325 Mg Tablet) 650 mg PO Q6H PRN PRN Reason: Pain, Mild (Pain Scale 1-3) Last Admin: 07/15/22 08:23 Dose: 650 mg Albuterol Sulfate (Albuterol Sulfate 90 Mcg 8 Gm Inhaler) 2 puff INHALE Q6H PRN PRN Reason: wheezing Atorvastatin Calcium (Atorvastatin Calcium 80 Mg Tablet) 80 mg PO DAILY RAJENDRA Last Admin: 07/15/22 08:14 Dose: 80 mg Bupropion HCl (Bupropion Hcl Xl 300 Mg Tab.Er.24h) 300 mg PO BEDTIME RAJENDRA Last Admin: 07/14/22 21:31 Dose: 300 mg Dextrose (Dextrose 50 % 25 Gm/50 Ml Syringe) 25 gm IVPUSH Q15M PRN; Protocol PRN Reason: per Hypoglycemia Standing Ord. Diltiazem HCl (Diltiazem Hcl Cd 180 Mg Cap.Er.24h) 180 mg PO DAILY [facility]; Protocol Last Admin: 07/15/22 08:14 Dose: 180 mg Docusate Sodium (Docusate Sodium 100 Mg Capsule) 100 mg PO DAILY PRN PRN Reason: Constipation Ezetimibe (Ezetimibe 10 Mg Tablet) 10 mg PO DAILY [facility] Last Admin: 07/15/22 08:14 Dose: 10 mg Enoxaparin Sodium (Enoxaparin Sodium 40 Mg/0.4 Ml Syringe) 40 mg SUBCUT Q24H [facility] Last Admin: 07/15/22 02:15 Dose: 40 mg Escitalopram Oxalate (Escitalopram Oxalate 20 Mg Tablet) 20 mg PO DAILY [facility] Last Admin: 07/15/22 08:14 Dose: 20 mg Gabapentin (Gabapentin 300 Mg Capsule) 300 mg PO BEDTIME [facility] Last Admin: 07/14/22 21:29 Dose: 300 mg Glucose (Glucose Gel 15 Gm Gel..Gram.) 15 gm PO Q15M PRN; Protocol PRN Reason: per Hypoglycemia Standing Ord. Lactated Ringer's (Lr) 1,000 mls @ 100 mls/hr IVCONT .Q10H [facility] Last Admin: 07/15/22 05:04 Dose: 100 mls/hr Ceftriaxone Sodium 1 gm/ (Sodium Chloride) 50 mls @ 100 mls/hr IV Q24H [facility] Last Infusion: 07/15/22 02:55 Dose: Infused Insulin Human Lispro (Insulin Lispro 100 Unit/Ml 3 Ml Vial) 0 unit SUBCUT QIDACHS [facility]; Protocol Last Admin: 07/15/22 08:19 Dose: Not Given Lamotrigine (Lamotrigine 100 Mg Tablet) 100 mg PO DAILY [facility] Last Admin: 07/15/22 08:14 Dose: 100 mg Latanoprost (Latanoprost 0.005 % Ophth Nati 2.5 Ml Drops) 1 drop EYE-BOTH BEDTIME [facility] Last Admin: 07/14/22 21:32 Dose: Not Given Levothyroxine Sodium (Levothyroxine Sodium 125 Mcg Tablet) 125 mcg PO DAILY@0600 [facility] Last Admin: 07/15/22 05:06 Dose: 125 mcg Omeprazole (Omeprazole 40 Mg Capsule.Dr) 40 mg PO DAILY@0630 [facility] Last Admin: 07/15/22 05:08 Dose: 40 mg Ondansetron HCl (Ondansetron Hcl 4 Mg/2 Ml Vial) 4 mg IVPUSH Q8H PRN PRN Reason: Nausea and Vomiting Pharmacy Consult (Consult Rx Perform Med Rec) 1 each MISCELLANE ONCE PRN PRN Reason: Consult order Sodium Chloride (0.9 % Sodium Chloride Flush 3 Ml Syringe) 3 ml IVFLUSH QSHIFT [facility] Last Admin: 07/15/22 08:15 Dose: Not Given Trazodone HCl (Trazodone Hcl 25 Mg Halftab) 75 mg PO BEDTIME [facility] Last Admin: 07/14/22 21:29 Dose: 75 mg Home Medications Medication Instructions Recorded Confirmed Last Taken Type albuterol sulfate 90 mcg/actuation 2 puff inhalation Q6H PRN wheezing 01/06/22 07/14/22 Unknown History aerosol inhaler atorvastatin 80 mg tablet 1 tab PO DAILY 01/06/22 07/14/22 07/13/22 History bupropion HCl 150 mg 24 hr tablet, 1 tab PO BEDTIME 01/06/22 07/14/22 07/13/22 History extended release bupropion HCl 300 mg 24 hr tablet, 1 tab PO BEDTIME 01/06/22 07/14/22 07/13/22 History extended release clonidine HCl 0.1 mg tablet 2 tab PO BEDTIME 01/06/22 07/14/22 Unknown History diltiazem HCl 180 mg 1 cap PO DAILY 01/06/22 07/14/22 07/13/22 History capsule,extended release 24 hr, controlled (DILT-XR) dulaglutide 1.5 mg/0.5 mL 0.5 ml subcut QWEEK 01/06/22 07/14/22 07/12/22 History subcutaneous pen injector (Trulicity) ezetimibe 10 mg tablet 1 tab PO DAILY 01/06/22 07/14/22 07/13/22 History gabapentin 300 mg capsule 1 cap PO BEDTIME 01/06/22 07/14/22 Unknown History hydrochlorothiazide 25 mg tablet 1 tab PO DAILY 01/06/22 07/14/22 07/13/22 History lamotrigine 100 mg tablet 1 tab PO DAILY 01/06/22 07/14/22 07/13/22 History latanoprost 0.005 % eye drops 1 drp ophthalmic (eye) BEDTIME 01/06/22 07/14/22 Unknown History levothyroxine 125 mcg tablet 1 tab PO DAILY@0600 01/06/22 07/14/22 07/13/22 History lisinopril 30 mg tablet 1 tab PO DAILY 01/06/22 07/14/22 07/13/22 History metformin 1,000 mg tablet 1 tab PO BID 01/06/22 07/14/22 07/13/22 History trazodone 50 mg tablet 1.5 tab PO BEDTIME 01/06/22 07/14/22 Unknown History citalopram 40 mg tablet 1 tab PO DAILY 07/14/22 07/14/22 07/13/22 History omeprazole 40 mg capsule,delayed 40 mg PO DAILY@0630 07/14/22 07/14/22 07/13/22 History release Physical Exam Vital Signs: Vital Signs: Last Vital Signs Temp 96.9 F 07/15/22 07:29 Pulse 66 07/15/22 07:29 Resp 16 07/15/22 07:29 BP 156/67 H 07/15/22 07:29 Pulse Ox 92 07/15/22 07:29 O2 Del Method 07/15/22 07:29 BMI result Body Mass Index 52.5 Neuro: Other: morbidly obese woman in no acute distress. Visual peck are full. Face was symmetrical. She was alert awake oriented with normal spontaneity of speech fluency comprehension and affect. Deep tendon reflexes were absent with flexor plantars. [id number] testing revealed moderate bilateral postural or action tremor Results Labs CBC & Chem 7: 07/14/22 04:58 07/15/22 08:24 Labs: BMP 07/15/22 08:24 Sodium 140 Potassium 4.8 Chloride 105 Carbon Dioxide 24 BUN 16 Creatinine 1.41 H Calcium 8.[address] did not reveal any significant abnormality. Microbiology Microbiology Results: Microbiology 07/13/22 Unknown Urine clean catch - Urine chase top Urine Culture - Final 07/14/22 00:04 Blood - Venous Blood Culture - Preliminary No growth after 24 hours. 07/14/22 00:04 Blood - Venous Blood Culture - Preliminary No growth after 24 hours. Assessment and Plan (1) Encephalopathy: Status: Acute 57 years old woman with morbid obesity, obstructive sleep apnea but not using CPAP machine on regular basis, came to hospital with nonspecific symptoms of dizziness and lethargy. There were multiple reasons for her to be having these symptoms including hypotension, dehydration, possible UTI, and metabolic abnormalities. On top of that, she was not using CPAP and was anemic. she was strongly advised to use CPAP machine regular basis, hydrate herself well, and have regular physical exercise regimen to avoid complications. Treatment of infection and dehydration will help. At this time there is no indication of a primary neurological problem. (2) Familial tremor: Status: Acute (3) Obstructive sleep apnea: Status: Acute Procedures Date of Service Date of Service: 07/15/22
[2022-07-15 12:30] VITALS: BP 187/79; PULSE 78; RESP 18; TEMP 36; O2SAT 94
[2022-07-15 12:38] LABS: Glucose, Whole Blood 142 mg/dL (60-115)
[2022-07-15] MEDS: lisinopriL 10 MG TABLET PO (14:09)
--- NOTE | 2022-07-15 14:28 | HO.PM.IMPN ---
Subjective Subjective Date of Service: 07/15/22 Interval History: seen and examined this morning Follow-up for hypotension, possible UTI No urinary symptoms, had episode of blurry vision overnight, Neurology consult ordered Had 2nd episode of blurry vision this afternoon. Denies any associated headache, dizziness, nausea, vomiting Review of Systems Review of Systems: Yes all other systems are reviewed and are negative Constitutional Constitutional: Denies chills and Denies fever(s) ENT Ears, Nose, Mouth, and Throat: Denies dizziness Cardiovascular Cardiovascular: Denies chest pain, Denies palpitations and Denies dyspnea Respiratory Respiratory: Denies cough and Denies dyspnea Gastrointestinal Gastrointestinal: Denies abdominal pain, Denies nausea and Denies vomiting Neurologic Neurologic: Denies dizziness Endocrine Endocrine: Denies palpitations Physical Exam Vital Signs: Vital Signs: Last Vital Signs Temp 96.8 F 07/15/22 12:30 Pulse 78 07/15/22 12:30 Resp 18 07/15/22 12:30 BP 187/79 H 07/15/22 12:30 Pulse Ox 94 07/15/22 12:30 O2 Del Method 07/15/22 12:30 BMI result Body Mass Index 52.5 Const: General: cooperative, comfortable, no acute distress, alert and awake Nutritional Appearance: obese Orientation/consciousness: patient oriented x3 Resp: Effort & Inspection: normal respiratory effort and able to speak in complete sentences Auscultation: clear to auscultation bilaterally Cardio: Rate: regular rate Heart sounds: S1 normal heart sound present and S2 normal heart sound present GI: Inspection: No distended and Yes obesity Palpation (GI): Soft to palpation and nontender Neuro: General: patient oriented x3 Extrem: General: Yes no pedal edema Objective Data Active Medications Acetaminophen (Acetaminophen 325 Mg Tablet) 650 mg PO Q6H PRN PRN Reason: Pain, Mild (Pain Scale 1-3) Last Admin: 07/15/22 08:23 Dose: 650 mg Documented By: ANDREA Albuterol Sulfate (Albuterol Sulfate 90 Mcg 8 Gm Inhaler) 2 puff INHALE Q6H PRN PRN Reason: wheezing Atorvastatin Calcium (Atorvastatin Calcium 80 Mg Tablet) 80 mg PO DAILY RAJENDRA Last Admin: 07/15/22 08:14 Dose: 80 mg Documented By: ANDREA Bupropion HCl (Bupropion Hcl Xl 300 Mg Tab.Er.24h) 300 mg PO BEDTIME [facility] Last Admin: 07/14/22 21:31 Dose: 300 mg Documented By: ANDREA Clonidine HCl (Clonidine Hcl 0.2 Mg Tablet) 0.2 mg PO BEDTIME [facility]; Protocol Dextrose (Dextrose 50 % 25 Gm/50 Ml Syringe) 25 gm IVPUSH Q15M PRN; Protocol PRN Reason: per Hypoglycemia Standing Ord. Diltiazem HCl (Diltiazem Hcl Cd 180 Mg Cap.Er.24h) 180 mg PO DAILY [facility]; Protocol Last Admin: 07/15/22 08:14 Dose: 180 mg Documented By: ANDREA Docusate Sodium (Docusate Sodium 100 Mg Capsule) 100 mg PO DAILY PRN PRN Reason: Constipation Ezetimibe (Ezetimibe 10 Mg Tablet) 10 mg PO DAILY [facility] Last Admin: 07/15/22 08:14 Dose: 10 mg Documented By: ANDREA Enoxaparin Sodium (Enoxaparin Sodium 40 Mg/0.4 Ml Syringe) 40 mg SUBCUT Q24H [facility] Last Admin: 07/15/22 02:15 Dose: 40 mg Documented By: ANDREA Escitalopram Oxalate (Escitalopram Oxalate 20 Mg Tablet) 20 mg PO DAILY [facility] Last Admin: 07/15/22 08:14 Dose: 20 mg Documented By: ANDREA Gabapentin (Gabapentin 300 Mg Capsule) 300 mg PO BEDTIME [facility] Last Admin: 07/14/22 21:29 Dose: 300 mg Documented By: ANDREA Glucose (Glucose Gel 15 Gm Gel..Gram.) 15 gm PO Q15M PRN; Protocol PRN Reason: per Hypoglycemia Standing Ord. Ceftriaxone Sodium 1 gm/ (Sodium Chloride) 50 mls @ 100 mls/hr IV Q24H [facility] Last Infusion: 07/15/22 02:55 Dose: 0 mls/hr Documented By: ANDREA Insulin Human Lispro (Insulin Lispro 100 Unit/Ml 3 Ml Vial) 0 unit SUBCUT QIDACHS [facility]; Protocol Last Admin: 07/15/22 14:05 Dose: Not Given Documented By: MAGO Non-Admin Reason: No Insulin Coverage Lamotrigine (Lamotrigine 100 Mg Tablet) 100 mg PO DAILY [facility] Last Admin: 07/15/22 08:14 Dose: 100 mg Documented By: ANDREA Latanoprost (Latanoprost 0.005 % Ophth Nati 2.5 Ml Drops) 1 drop EYE-BOTH BEDTIME [facility] Last Admin: 07/14/22 21:32 Dose: Not Given Documented By: ANDREA Non-Admin Reason: Med Not Available Levothyroxine Sodium (Levothyroxine Sodium 125 Mcg Tablet) 125 mcg PO DAILY@0600 [facility] Last Admin: 07/15/22 05:06 Dose: 125 mcg Documented By: ANDREA Lisinopril (Lisinopril 10 Mg Tablet) 10 mg PO DAILY [facility]; Protocol Last Admin: 07/15/22 14:09 Dose: 10 mg Documented By: MAGO Omeprazole (Omeprazole 40 Mg Capsule.) 40 mg PO DAILY@0630 [facility] Last Admin: 07/15/22 05:08 Dose: 40 mg Documented By: ANDREA Ondansetron HCl (Ondansetron Hcl 4 Mg/2 Ml Vial) 4 mg IVPUSH Q8H PRN PRN Reason: Nausea and Vomiting Pharmacy Consult (Consult Rx Perform Med Rec) 1 each MISCELLANE ONCE PRN PRN Reason: Consult order Sodium Chloride (0.9 % Sodium Chloride Flush 3 Ml Syringe) 3 ml IVFLUSH QSHIFT [facility] Last Admin: 07/15/22 08:15 Dose: Not Given Documented By: ANDREA Non-Admin Reason: IV Running Trazodone HCl (Trazodone Hcl 25 Mg Halftab) 75 mg PO BEDTIME [facility] Last Admin: 07/14/22 21:29 Dose: 75 mg Documented By: ANDREA Labs CBC & Chem 7: 07/14/22 04:58 07/15/22 08:24 Labs: Laboratory Results - last 24 hr 07/14/22 07/14/22 07/15/22 18:17 20:57 07:34 Anion Gap Estim Creat Clear Calc Estimated GFR POC Glucose 99 139 H 118 H Random Glucose Calcium 07/15/22 07/15/22 08:24 12:34 Anion Gap 16 Estim Creat Clear Calc 60.6 Estimated GFR 38 POC Glucose 142 H Random Glucose 129 H Calcium 8.9 D Microbiology Microbiology Results: Microbiology 07/13/22 Unknown Urine Culture - Final Urine clean catch - Urine chase top 07/14/22 00:04 Blood Culture - Preliminary Blood - Venous No growth after 24 hours. 07/14/22 00:04 Blood Culture - Preliminary Blood - Venous No growth after 24 hours. Assessment and Plan (1) JEANNIE (acute kidney injury): Status: Acute Plan 57-year-old female with past medical history of depression anxiety, HLD, and hyperlipidemia as well as CKD and hypertension presents to the hospital with near syncopal episode blurry vision two separate episodes no dizziness. orthostatics negative brain CT negative x2 carotid ultrasound shows bilateral stenosis -vascular surgery consult pending seen by neuro - no further work up suggested possible sepsis had hypotension, lactic acidosis, leukocytosis on arrival. BP improved with IVF and leukocytosis resolved. UA not overwhelmingly positive and patient asymptomatic. unclear if this represented sepsis initially treated with IV ceftriaxone, urine culture with contamination - will discontinue JEANNIE on ckd3 creatinine improving from 2.16 to 1.4. near baseline - hold HCTZ, resume lower dose of lisinopril - follow BMP near-syncope - likely secondary to hypotension - no further episodes UTI asymptomatic - urine culture suggestive of contamination- will DC antibiotics DM hold metformin, trulicity -SSI, POCs mood - continue home medications, will start bupropion at lower dose due to renal function hypertension bp uncontrolled. - continue Cardizem, clonidine - lower dose of lisinopril resumed, up titrate as needed - hydrochlorothiazide on hold for renal dysfunction - Follow BP closely hyperlipidemia Continue statin, Zetia Hypothyroidism Continue Synthroid morbid obesity BMI 52.8 Weight loss encouraged DVT prophylaxis: Lovenox attending - dr. Olivarez patient requires ongoing inpatient hospitalization due blurry vision, carotid stenosis, JEANNIE, uncontrolled blood pressure Quality Stroke Does the patient have a stroke diagnosis?: No VTE Prior VTE?: No VTE Risk Level:: Medical - moderate - high VTE Device Contraindication: Treatment Not Indicated VTE Drug Contraindication: N/A - Med Ordered
--- NOTE | 2022-07-15 15:01 | MHC.CM.PN ---
Patient not medically cleared for discharge today R/T blurry vision, carotid stenosis, JEANNIE, uncontrolled blood pressure. D/C plans continues to be Home resume VNA services. CM will continue to follow for discharge needs.
[2022-07-15 15:13] VITALS: BP 148/70; PULSE 69; RESP 17; TEMP 36.8; O2SAT 95
[2022-07-15 16:03] LABS: Glucose, Whole Blood 166 mg/dL (60-115)
[2022-07-15] MEDS: 0.9 % Sodium Chloride Flush 3 ML SYRINGE IVFLUSH (17:13)
[2022-07-15] MEDS: Insulin Lispro 100 UNIT/ML 3 ML VIAL SUBCUT ×2 (17:13→20:06)
[2022-07-15] MEDS: Lactated Ringers 1,000 ML 80 ML IVCONT ×2 (18:34→23:06)
[2022-07-15 18:55] VITALS: BP 132/63; PULSE 71; RESP 18; TEMP 36.3; O2SAT 96
--- NOTE | 2022-07-15 19:10 | PC.NURSE ---
Patient is considered high fall risk but refused to have the bed alarm on. Patient is stable, standby assist.
--- NOTE | 2022-07-15 19:11 | PC.NURSE ---
Patient refused to go for CT scan, she said she was concerned about getting contrast dye due to her kidneys. She has CKD stage 3. She said she will wait to see her kidney function results tomorrow, then she can decide whether to have the procedure done. PA aware.
[2022-07-15 20:04] LABS: Glucose, Whole Blood 169 mg/dL (60-115)
[2022-07-15] MEDS: buPROPion HCl XL 300 MG TAB.ER.24H PO (20:05)
[2022-07-15] MEDS: traZODone HCL 25 MG HALFTAB 75 MG PO (20:05)
[2022-07-15] MEDS: Gabapentin 300 MG CAPSULE PO (20:05)
[2022-07-15] MEDS: cloNIDine HCL 0.2 MG TABLET PO (20:06)
[2022-07-15 23:15] VITALS: BP 149/87; PULSE 68; RESP 18; TEMP 37.1; O2SAT 98
--- NOTE | 2022-07-15 23:28 | PC.NURSE ---
PT refusing bed alarm, PT educated on safety and symptoms of past dizziness and blurry vision, PT still refusing bed alarm.
[2022-07-16] MEDS: Enoxaparin Sodium 40 MG/0.4 ML SYRINGE SUBCUT (02:30)
[2022-07-16 04:00] VITALS: BP 138/76; PULSE 60; RESP 20; TEMP 36.8; O2SAT 95
[2022-07-16] MEDS: Levothyroxine Sodium 125 MCG TABLET PO (05:06)
[2022-07-16] MEDS: Omeprazole 40 MG CAPSULE.DR PO (05:06)
[2022-07-16 07:19] LABS: Anion Gap 16 (12-20); Blood Urea Nitrogen 16 mg/dL (9-16); Carbon Dioxide 27 mmol/L (22-29); Chloride 103 mmol/L (96-108); Creatinine Clr Calc Pharmacy 64.8; Estimated Glomerular Filt Rate 41; Glucose Random 112 mg/dL (60-115); Potassium 4.7 mmol/L (3.3-5.1); Sodium 141 mmol/L (135-145)
[2022-07-16 07:26] VITALS: BP 142/63; PULSE 66; RESP 18; TEMP 36.1; O2SAT 96
[2022-07-16 07:33] LABS: Glucose, Whole Blood 103 mg/dL (60-115)
[2022-07-16] MEDS: Ezetimibe 10 MG TABLET PO (08:30)
[2022-07-16] MEDS: lamoTRIgine 100 MG TABLET PO (08:31)
[2022-07-16] MEDS: dilTIAZem HCL CD 180 MG CAP.ER.24H PO (08:31)
[2022-07-16] MEDS: Escitalopram Oxalate 20 MG TABLET PO (08:31)
[2022-07-16] MEDS: lisinopriL 10 MG TABLET PO (08:31)
[2022-07-16] MEDS: Atorvastatin Calcium 80 MG TABLET PO (08:36)
[2022-07-16 11:19] VITALS: BP 140/75; PULSE 62; RESP 18; TEMP 36.2; O2SAT 94
[2022-07-16 11:24] LABS: Glucose, Whole Blood 117 mg/dL (60-115)
[2022-07-16] MEDS: Lactated Ringers 1,000 ML 80 ML IVCONT (11:49)
--- NOTE | 2022-07-16 13:09 | PM.DS ---
DS: Providers Provider Date of Service: 07/16/22 Date of admission: 07/14/22 00:57 Primary care physician: Lakeisha Hernández MD Consults: 07/14/22 19:26 Consult to Neurology Routine Consulting Provider: [facility] Reason for consultation: dizziness; blurry vision 07/15/22 14:13 Consult to Vascular Surgery Routine Consulting Provider: Mak Wells Reason for consultation: carotid stenosis Has provider been notified: No Attending physician on discharge: Aleksandr Villa DS: Diagnosis Discharge Diagnosis (1) JEANNIE (acute kidney injury): Status: Acute DS: Summary Hospital Course Hospital Course: 57-year-old female with past medical history of depression anxiety, HLD, and? hyperlipidemia as well as CKD and hypertension presents to the hospital with near syncopal episode Blurry vision. Resolved two separate episodes, no further episodes, patient reports feeling fine at this point no dizziness.? orthostatics negative brain CT negative x2 carotid ultrasound shows bilateral stenosis. vascular surgeon suggested a neck CTA but patient declined due to her renal function, vascular surgeon agreed and recommended following up with him in his office as an outpatient seen by neuro - no further work up suggested JEANNIE on ckd3. Resolved creatinine improving from 2.16 to 1.3. near baseline hold HCTZ, resume lower dose of lisinopril 10 mg daily near-syncope. Resolved likely secondary to hypotension no further episodes DM continue home medications mood continue home medications Hypertension bp uncontrolled. continue Cardizem, clonidine lower dose of lisinopril resumed, up titrate as needed hydrochlorothiazide on hold for renal dysfunction Hyperlipidemia Continue statin, Zetia Hypothyroidism Continue Synthroid Morbid obesity BMI 52.8 Weight loss encouraged Time Spent with Patient Time attestation: Total time spent providing and/or coordinating discharge services: Discharge coordination time: Greater than 30 minutes Quality: Safe Use of Opioids Does Pt have an Active Cancer Diagnosis on the Problem List?: No Quality: Stroke Does the patient have a stroke diagnosis?: No Physical Exam Vital Signs: Vital Signs: Last Vital Signs Temp 97.1 F 07/16/22 11:19 Pulse 62 07/16/22 11:19 Resp 18 07/16/22 11:19 BP 140/75 H 07/16/22 11:19 Pulse Ox 94 07/16/22 11:19 O2 Del Method 07/16/22 11:19 BMI result Body Mass Index 52.5 Appearing in no acute distress head is normocephalic atraumatic eyes pupils are PERRLA sclera is anicteric mouth throat mucous membranes are intact and moist neck is supple no lymphadenopathy, no JVD noted lung sounds are clear to auscultation heart regular rate rhythm, clear S1, S2 positive bowel sounds, abdomen is soft, nontender neuro patient is alert x3, no focal deficits DS: Data Data Completed and Pending Labs on day of discharge: Laboratory Results - last 24 hr 07/15/22 07/15/22 07/16/22 15:56 20:00 05:57 Sodium 141 Potassium 4.7 Chloride 103 Carbon Dioxide 27 Anion Gap 16 BUN 16 Creatinine 1.32 Estim Creat Clear Calc 64.8 Estimated GFR 41 POC Glucose 166 H 169 H Random Glucose 112 Calcium 9.0 07/16/22 07/16/22 07:23 11:17 Sodium Potassium Chloride Carbon Dioxide Anion Gap BUN Creatinine Estim Creat Clear Calc Estimated GFR POC Glucose 103 117 H Random Glucose Calcium Preliminary micro results at discharge 07/14/22 00:04 Blood Culture - Preliminary Blood - Venous No growth after 48 hours. 07/14/22 00:04 Blood Culture - Preliminary Blood - Venous No growth after 48 hours. Discharge Plan Discharge Anticipated Discharge Date/Time: 07/16/22 13:06 Patient Disposition: Home, Self-Care Discharge Diagnosis: Blurred vision JEANNIE on CKD 3 Near-syncope Referrals: Mak Wells MD [Physician] - 1 Week Lakeisha Hernández MD [Primary Care Provider] - 1 Week Discharge Medications: Continued latanoprost 0.005 % drops 1 drp ophthalmic (eye) BEDTIME Rx Instructions: administer 1 drop into both eyes atorvastatin 80 mg tablet 1 tab PO DAILY clonidine HCl 0.1 mg tablet 2 tab PO BEDTIME trazodone 50 mg tablet 1.5 tab PO BEDTIME metformin 1,000 mg tablet 1 tab PO BID levothyroxine 125 mcg tablet 1 tab PO DAILY@0600 lisinopril 30 mg tablet 1 tab PO DAILY Hold Instructions: Resume on 01/12/22. gabapentin 300 mg capsule 1 cap PO BEDTIME hydrochlorothiazide 25 mg tablet 1 tab PO DAILY albuterol sulfate 90 mcg/actuation HFA aerosol inhaler 2 puff inhalation Q6H PRN (Reason: wheezing) diltiazem HCl [DILT-XR] 180 mg capsule,ext.rel 24h degradable 1 cap PO DAILY lamotrigine 100 mg tablet 1 tab PO DAILY ezetimibe 10 mg tablet 1 tab PO DAILY bupropion HCl 300 mg tablet extended release 24 hr 1 tab PO BEDTIME bupropion HCl 150 mg tablet extended release 24 hr 1 tab PO BEDTIME Trulicity 1.5 mg/0.5 mL pen injector 0.5 ml subcut QWEEK citalopram 40 mg tablet 1 tab PO DAILY omeprazole 40 mg Capsule,Delayed Release(Dr/Ec) 40 mg PO DAILY@0630 Discharge Orders: Discharge Order (Routine); Ordered 07/16/22 Ordered By: Megan Lyn Diet: Advance to usual diet Activity on Discharge: As tolerated Stand Alone Forms: Patient Portal Discharge page Care Plan Goals: Complete resolution of symptoms Health Concerns: Blurred vision JEANNIE on CKD 3 Near-syncope Plan of Treatment: Follow-up with vascular surgeon for plan for follow-up testing for carotid stenosis Follow-up with primary care provider as needed Take all medications as prescribed Assessment: see discharge summary
--- NOTE | 2022-07-16 13:11 | MHC.CM.PN ---
Addendum entered by Maggie Gold 07/16/22 15:24: PATIENT IS DC HOME WITH [facility]UMPTION OF [facility] Original Note: [facility] UPDATED IN [facility]. CASE MANAGEMENT FOLLOWING
== END 2022-07-16 15:20 | disposition home or self-care (01) | DRG 315 ==
LOC: HO.ED 07-14 00:48 → HO.EDOVER 07-14 01:02 → HO.S3 07-14 19:19
PROVIDERS: Physician Assistant; Physician Assistant Medical; Admitting Provider Internal Medicine; Emergency Provider Emergency Medicine; PCP Internal Medicine; Visit Provider Nurse Practitioner Acute Care
DX: I95.9 Hypotension, unspecified (principal); N17.9 Acute kidney failure, unspecified; Z68.43 Body mass index [BMI] 50.0-59.9, adult; I13.10 Hypertensive heart and chronic kidney disease without heart failure, with stage 1 through stage 4 chronic kidney disease, or unspecified chronic kidney disease; N18.30 Chronic kidney disease, stage 3 unspecified; E11.22 Type 2 diabetes mellitus with diabetic chronic kidney disease; E86.0 Dehydration; E03.9 Hypothyroidism, unspecified; G47.33 Obstructive sleep apnea (adult) (pediatric); E66.01 Morbid (severe) obesity due to excess calories; I65.23 Occlusion and stenosis of bilateral carotid arteries; G25.0 Essential tremor; E78.5 Hyperlipidemia, unspecified; F41.9 Anxiety disorder, unspecified; F32.A Depression, unspecified; Z20.822 Contact with and (suspected) exposure to COVID-19; Z79.84 Long term (current) use of oral hypoglycemic drugs; Z79.890 Hormone replacement therapy; Z79.899 Other long term (current) drug therapy
CPT/HCPCS: 36415; 70450; 80048; 80053; 81001; 82947; 83605; 83735; 84484; 85025; 87040; 87086; 87635; 93005; 93880; 96361; 96374; 96375; 99285; J0696; J1650; J2405

== ENCOUNTER 2022-09-22 16:14 | Emergency (ER) | payer MEDICARE, MEDICAID, SELFPAY ==
[2022-09-22 16:18] VITALS: BP 134/89; BP 150/90; PULSE 110; PULSE 90; RESP 20; TEMP 37.1; O2SAT 94; O2SAT 97; BMI 50.8
--- NOTE | 2022-09-22 16:22 | ECG_ITS ---
Test Reason : abdominal pain Blood Pressure : / mmHG Vent. Rate : 091 BPM Atrial Rate : 091 BPM P-R Int : 142 ms QRS Dur : 078 ms QT Int : 366 ms P-R-T Axes : 042 020 010 degrees QTc Int : 450 ms Normal sinus rhythm Normal ECG When compared with ECG of 13-JUL-2022 20:14, Vent. rate has increased BY 35 BPM Referred By: Deana Garibay Electronically Signed By:RACHEL POWELL MD
--- NOTE | 2022-09-22 16:26 | ED_ITS ---
HPI - Nausea/Vomiting/Diarrhea General Chief complaint: Abdominal Pain Stated complaint: nausea vomiting Time Seen by Provider: 09/22/22 16:15 Source: patient Mode of arrival: ambulatory Limitations: no limitations History of Present Illness HPI Narrative: patient comes to the emergency room via EMS complaining of nausea and vomiting for 2 days. Patient states that she does not have abdominal pain. Patient had diarrhea multiple times over the last 24 hours. Patient states that she tried taking Pepto-Bismol but she vomited. patient denies chest pain, no shortness of breath, no dysuria, no URI symptoms Related Data Home Medications Medication Instructions Recorded Confirmed albuterol sulfate 90 mcg/actuation 2 puff inhalation Q6H PRN wheezing 01/06/22 07/14/22 aerosol inhaler atorvastatin 80 mg tablet 1 tab PO DAILY 01/06/22 07/14/22 bupropion HCl 150 mg 24 hr tablet, 1 tab PO BEDTIME 01/06/22 07/14/22 extended release bupropion HCl 300 mg 24 hr tablet, 1 tab PO BEDTIME 01/06/22 07/14/22 extended release clonidine HCl 0.1 mg tablet 2 tab PO BEDTIME 01/06/22 07/14/22 diltiazem HCl 180 mg 1 cap PO DAILY 01/06/22 07/14/22 capsule,extended release 24 hr, controlled (DILT-XR) dulaglutide 1.5 mg/0.5 mL 0.5 ml subcut QWEEK 01/06/22 07/14/22 subcutaneous pen injector (Trulicity) ezetimibe 10 mg tablet 1 tab PO DAILY 01/06/22 07/14/22 gabapentin 300 mg capsule 1 cap PO BEDTIME 01/06/22 07/14/22 lamotrigine 100 mg tablet 1 tab PO DAILY 01/06/22 07/14/22 latanoprost 0.005 % eye drops 1 drp ophthalmic (eye) BEDTIME 01/06/22 07/14/22 levothyroxine 125 mcg tablet 1 tab PO DAILY@0600 01/06/22 07/14/22 lisinopril 30 mg tablet 1 tab PO DAILY 01/06/22 07/14/22 metformin 1,000 mg tablet 1 tab PO BID 01/06/22 07/14/22 trazodone 50 mg tablet 1.5 tab PO BEDTIME 01/06/22 07/14/22 citalopram 40 mg tablet 1 tab PO DAILY 07/14/22 07/14/22 omeprazole 40 mg capsule,delayed 40 mg PO DAILY@0630 07/14/22 07/14/22 release Previous Rx's Medication Instructions Recorded loperamide 2 mg capsule 2 mg PO Q6H PRN loose stool #10 09/22/22 caps ondansetron 4 mg disintegrating 4 mg PO Q6H PRN nausea and 09/22/22 tablet vomiting #14 tabs Allergies Allergy/AdvReac Type Severity Reaction Status Date / Time No Known Allergies Allergy Verified 07/13/22 20:08 Review of Systems Review of Systems: Constitutional : No Weight loss, No Fever, No Chills, No Night Sweats, No Fatigue, No Malaise ENT/Mouth : No Hearing loss, No Ear Pain, No Nasal Congestion, No Sinus Pain, No Hoarseness, No sore throat, No Rhinorrhea, No Swallowing Difficulty Eyes: No Eye Pain, No Swelling, No Redness, No Foreign Body, No Discharge, No V ision Changes Cardiovascular : No Chest Pain, No SOB, No Dyspnea on Exertion, No Orthopnea, No Edema, No Palpitations Respiratory : No Cough, No Sputum, No Wheezing, No Smoke Exposure, No Dyspnea Gastrointestinal : complaining of nausea vomiting and diarrhea No Constipation, No abdominal Pain, No Hematochezia, No Melena Genitourinary : no irregular bleeding, No Dysuria, No Urinary Frequency, No H ematuria, No Urinary Incontinence, No Urgency, No Flank Pain, No Urinary Flow Changes, No Hesitancy Musculoskeletal : No joint pain, No Myalgias, No Joint Swelling Skin : No Skin Lesions, No rash Neuro : No Weakness, No Numbness, No Paresthesias, No Loss of Consciousness, No Dizziness, No Headache Psych : No Anxiety/Panic, No Depression, No SI/HI/AH/VH, No Social Issues, Heme/Lymph: No Bruising, No Bleeding,No Lymphadenopathy Endocrine : No Polyuria, No Polydipsia, No Temperature Intolerance COUNTS INCLUDE 234 BEDS AT THE [facility] Past Medical History Medical History Anxiety CKD stage 3 secondary to diabetes Depression Diabetes Familial tremor Hyperlipemia Hypertension Obstructive sleep apnea Surgical History History of cholecystectomy Family History Family History Other Hypertension Social History Social History Household Members: Family Housing: Apartment Do you presently have visiting nurse or other home services: No Alcohol intake: never Patient Tobacco Use Status: Never used Tobacco Second Hand Smoke Exposure: No Use of substances other than those prescribed or required for medical reasons: No Advance Directives: No Advance Directives Information Provided: No service: No Current occupational status: disabled Physical Exam Vital Signs: Vital Signs: Last Vital Signs Temp 98.7 F 09/22/22 19:31 Pulse 79 09/22/22 19:31 Resp 16 09/22/22 19:31 BP 124/51 L 09/22/22 19:31 Pulse Ox 98 09/22/22 19:31 O2 Del Method 09/22/22 19:31 BMI result Body Mass Index 50.8 Const: Other: Appearance: Alert. Oriented X3. No acute distress. Eyes: Pupils equal, round and reactive to light. ENT: Pharynx normal. Neck: Normal inspection. Neck supple. No lymph nodes noted. No crepitus CVS: Normal heart rate and rhythm. Pulses normal. Normal S1 and S2 Respiratory: No respiratory distress. Breath sounds normal. No Wheezing. No rales Abdomen: Soft and nontender. No rigidity. No distention. Skin: Skin warm and dry. Normal skin color. Normal skin turgor. Extremities: No lower extremity edema. No Lacerations. No Rash Neuro: Oriented X 3. No motor deficit. No sensory deficit. Moving all extremities. No slurred speech. CN 2 through 12 grossly intact Psych: calm, cooperative, normal affect Course Course Course Narrative: overall, patient seems well-appearing, not nauseous or vomiting at this time. Patient given IV fluids, loperamide and IV Zofran. All Of patient's labs are pending. Patient has no abdominal pain. white blood cell count within normal limits. Patient's creatinine improved from 1.6-1.3, back to baseline. Magnesium improved from a 3-1.9. Patient has not had any episodes of vomiting or diarrhea in the emergency room. Overall patient feeling much better. Patient is having a viral syndrome urinalysis shows small amount of leukocyte esterase, same as the urine from July 13. from patient's previous urine culture, she grew mixed lewis. Patient does not have any UTI symptoms, antibiotics are not indicated at this time. MDM - Nausea/Vomiting/Diarrhea Lab Data Result diagrams: 09/22/22 16:33 09/22/22 20:05 Labs: Lab Results 09/22/22 09/22/22 09/22/22 Range/Units 16:33 16:33 16:52 WBC 9.4 (4.8-10.8) X10*3/uL RBC 4.03 L D (4.20-5.50) X10*6/uL Hgb 12.7 D (12.0-16.0) g/dl Hct 36.0 L D (37.0-47.0) % MCV 89.3 (80.0-98.0) fL MCH 31.5 (27.0-33.0) pg MCHC 35.3 H (31.0-35.0) g/dl RDW 12.7 (11.0-16.0) % Plt Count 497 H D (160-400) X10*3/uL MPV 8.7 L (9.4-12.3) fL Immature Gran % (Auto) 0.4 (0.0-0.4) % Neut % (Auto) 47.5 (45-73) % Lymph % (Auto) 43.6 H (20-40) % [place] % (Auto) 7.2 (2-11) % Eos % (Auto) 0.9 (0-4) % Baso % (Auto) 0.4 (0-2) % Lymph # (Auto) 4.1 (1.2-4.9) X10*3/uL [place] # (Auto) 0.7 (0.1-1.2) X10*3/uL Eos # (Auto) 0.1 (0.0-0.4) X10*3/uL Baso # (Auto) 0.0 (0.0-0.2) X10*3/uL Abs Immat Gran (auto) 0.04 H (0.00-0.03) X10*3/uL Absolute Neuts (auto) 4.4 (2.0-8.3) x10*3/uL Absolute Nucleated RBC 0.000 (0.0-0.012) X10*3/uL Nucleated RBC % (auto) 0.0 (0.0-0.2) /100WBC Sodium 136 (135-145) mmol/L Potassium 4.5 (3.3-5.1) mmol/L Chloride 96 (96-108) mmol/L Carbon Dioxide 22 (22-29) mmol/L Anion Gap 23 H (12-20) BUN 19 H (9-16) mg/dL Creatinine 1.62 H (0.5-1.4) mg/dL Estim Creat Clear Calc 51.7 Estimated GFR 33 Random Glucose 180 H (60-115) mg/dL Calcium 9.7 D (8.4-10.2) mg/dL Magnesium 1.3 L* (1.6-2.6) mg/dL Total Bilirubin 0.7 (0.0-1.0) mg/dL Direct Bilirubin 0.2 (0.0-0.5) mg/dL AST 18 (5-31) U/L ALT 19 (0-31) U/L Alkaline Phosphatase 87 D (39-117) U/L Total Protein 8.3 H (6.5-8.0) g/dL Albumin 4.9 (3.5-5.0) g/dL Lipase 20 (8-78) U/L Urine Color Urine Appearance Urine pH (5.0-9.0) Ur Specific [place] (1.005-1.025) Urine Protein (Neg-Trace) mg/dL Urine Glucose (UA) (Negative) mg/dL Urine Ketones (Negative) mg/dL Urine Blood (Negative) Urine Nitrite (Negative) Ur Leukocyte Esterase (Negative) Urine RBC (0-2) /HPF Urine WBC (0-5) /HPF Ur Squamous Epith Cells (0-2) /HPF Urine Bacteria (None Seen) Hyaline Casts (0-2) /LPF COVID-19 (DUSTIN) Negative (Negative) COVID-19 Clin Com See Note 09/22/22 09/22/22 Range/Units 20:05 Unknown WBC (4.8-10.8) X10*3/uL RBC (4.20-5.50) X10*6/uL Hgb (12.0-16.0) g/dl Hct (37.0-47.0) % MCV (80.0-98.0) fL MCH (27.0-33.0) pg MCHC (31.0-35.0) g/dl RDW (11.0-16.0) % Plt Count (160-400) X10*3/uL MPV (9.4-12.3) fL Immature Gran % (Auto) (0.0-0.4) % Neut % (Auto) (45-73) % Lymph % (Auto) (20-40) % [place] % (Auto) (2-11) % Eos % (Auto) (0-4) % Baso % (Auto) (0-2) % Lymph # (Auto) (1.2-4.9) X10*3/uL [place] # (Auto) (0.1-1.2) X10*3/uL Eos # (Auto) (0.0-0.4) X10*3/uL Baso # (Auto) (0.0-0.2) X10*3/uL Abs Immat Gran (auto) (0.00-0.03) X10*3/uL Absolute Neuts (auto) (2.0-8.3) x10*3/uL Absolute Nucleated RBC (0.0-0.012) X10*3/uL Nucleated RBC % (auto) (0.0-0.2) /100WBC Sodium 138 (135-145) mmol/L Potassium 4.4 (3.3-5.1) mmol/L Chloride 101 (96-108) mmol/L Carbon Dioxide 23 (22-29) mmol/L Anion Gap 18 (12-20) BUN 18 H (9-16) mg/dL Creatinine 1.30 (0.5-1.4) mg/dL Estim Creat Clear Calc 64.3 Estimated GFR 42 Random Glucose 101 (60-115) mg/dL Calcium 8.7 D (8.4-10.2) mg/dL Magnesium 1.9 (1.6-2.6) mg/dL Total Bilirubin (0.0-1.0) mg/dL Direct Bilirubin (0.0-0.5) mg/dL AST (5-31) U/L ALT (0-31) U/L Alkaline Phosphatase (39-117) U/L Total Protein (6.5-8.0) g/dL Albumin (3.5-5.0) g/dL Lipase (8-78) U/L Urine Color Yellow Urine Appearance Clear Urine pH 5.5 (5.0-9.0) Ur Specific [place] 1.010 (1.005-1.025) Urine Protein Negative (Neg-Trace) mg/dL Urine Glucose (UA) Negative (Negative) mg/dL Urine Ketones Negative (Negative) mg/dL Urine Blood Negative (Negative) Urine Nitrite Negative (Negative) Ur Leukocyte Esterase Small (1+) H (Negative) Urine RBC 3-5 H (0-2) /HPF Urine WBC 0-5 (0-5) /HPF Ur Squamous Epith Cells 0-2 (0-2) /HPF Urine Bacteria Trace (None Seen) Hyaline Casts 0-2 (0-2) /LPF COVID-19 (DUSTIN) (Negative) COVID-19 Clin Com Discharge Plan Discharge Clinical Impression: Nausea vomiting and diarrhea, Hypomagnesemia, JENANIE (acute kidney injury) Patient Disposition: Home, Self-Care Instructions: Acute Nausea and Vomiting (ED), Acute Diarrhea (ED) Additional Instructions: Please follow-up with your primary care physician tomorrow. If you have any worsening or new symptoms, please return to the emergency room or call 911 Prescriptions: New ondansetron 4 mg tablet,disintegrating 4 mg PO Q6H PRN (Reason: nausea and vomiting) Qty: 14 0RF loperamide 2 mg capsule 2 mg PO Q6H PRN (Reason: loose stool) Qty: 10 0RF No Action latanoprost 0.005 % drops 1 drp ophthalmic (eye) BEDTIME Rx Instructions: administer 1 drop into both eyes atorvastatin 80 mg tablet 1 tab PO DAILY clonidine HCl 0.1 mg tablet 2 tab PO BEDTIME trazodone 50 mg tablet 1.5 tab PO BEDTIME metformin 1,000 mg tablet 1 tab PO BID levothyroxine 125 mcg tablet 1 tab PO DAILY@0600 lisinopril 30 mg tablet 1 tab PO DAILY Hold Instructions: Resume on 01/12/22. gabapentin 300 mg capsule 1 cap PO BEDTIME albuterol sulfate 90 mcg/actuation HFA aerosol inhaler 2 puff inhalation Q6H PRN (Reason: wheezing) diltiazem HCl [DILT-XR] 180 mg capsule,ext.rel 24h degradable 1 cap PO DAILY lamotrigine 100 mg tablet 1 tab PO DAILY ezetimibe 10 mg tablet 1 tab PO DAILY bupropion HCl 300 mg tablet extended release 24 hr 1 tab PO BEDTIME bupropion HCl 150 mg tablet extended release 24 hr 1 tab PO BEDTIME Trulicity 1.5 mg/0.5 mL pen injector 0.5 ml subcut QWEEK citalopram 40 mg tablet 1 tab PO DAILY omeprazole 40 mg Capsule,Delayed Release(Dr/Ec) 40 mg PO DAILY@0630
[2022-09-22 16:38] LABS: MANUAL DIFF FLAG NO
[2022-09-22 16:42] LABS: Basophils Percent Auto 0.4 % (0-2); Eosinophils Absolute Auto 0.1 X10*3/uL (0.0-0.4); Eosinophils Percent Auto 0.9 % (0-4); Hemoglobin 12.7 g/dl (12.0-16.0); Imm Gran Abs Auto 0.04 X10*3/uL (0.00-0.03); Imm Gran Pct Auto 0.4 % (0.0-0.4); Lymphocytes Absolute Auto 4.1 X10*3/uL (1.2-4.9); Lymphocytes Percent Auto 43.6 % (20-40); Mean Corpuscular HGB Conc 35.3 g/dl (31.0-35.0); Mean Corpuscular Hemoglobin 31.5 pg (27.0-33.0); Mean Corpuscular Volume 89.3 fL (80.0-98.0); Mean Platelet Volume 8.7 fL (9.4-12.3); Monocytes Absolute Auto 0.7 X10*3/uL (0.1-1.2); Monocytes Percent Auto 7.2 % (2-11); Neutrophils Absolute Auto 4.4 x10*3/uL (2.0-8.3); Neutrophils Percent Auto 47.5 % (45-73); Platelet Count 497 X10*3/uL (160-400); Red Blood Count 4.03 X10*6/uL (4.20-5.50); Red Cell Distribution Width 12.7 % (11.0-16.0); White Blood Count 9.4 X10*3/uL (4.8-10.8)
[2022-09-22 17:02] LABS: Alanine Aminotransferase 19 U/L (0-31); Albumin Level 4.9 g/dL (3.5-5.0); Alkaline Phosphatase 87 U/L (39-117); Anion Gap 23 (12-20); Aspartate Amino Transferase 18 U/L (5-31); Bilirubin Direct 0.2 mg/dL (0.0-0.5); Bilirubin Total 0.7 mg/dL (0.0-1.0); Blood Urea Nitrogen 19 mg/dL (9-16); Calcium 9.7 mg/dL (8.4-10.2); Carbon Dioxide 22 mmol/L (22-29); Chloride 96 mmol/L (96-108); Creatinine Clr Calc Pharmacy 51.7; Estimated Glomerular Filt Rate 33; Glucose Random 180 mg/dL (60-115); Lipase 20 U/L (8-78); Magnesium 1.3 mg/dL (1.6-2.6); Potassium 4.5 mmol/L (3.3-5.1); Sodium 136 mmol/L (135-145); Total Protein 8.3 g/dL (6.5-8.0)
[2022-09-22 17:13] LABS: COVID-19 Test Negative (Negative); IDNOW Serial# 16C4AD1C
[2022-09-22] MEDS: ondansetron HCL 4 MG/2 ML VIAL IVPUSH (17:22)
[2022-09-22] MEDS: Magnesium Sulfate/H2O 2 GM/50 ML PIGGYBACK IV (17:22)
[2022-09-22] MEDS: Loperamide HCl 2 MG CAPSULE 4 MG PO (17:22)
[2022-09-22] MEDS: 0.9 % Sodium Chloride 1,000 ML 999 ML IVCONT ×2 (17:23→18:07)
[2022-09-22 18:00] VITALS: BP 130/49; PULSE 86; RESP 14; TEMP 36.7; O2SAT 93
[2022-09-22 19:31] VITALS: BP 124/51; PULSE 79; RESP 16; TEMP 37.1; O2SAT 98
[2022-09-22 19:36] LABS: Appearance Urine Clear; Color Urine Yellow; Glucose Urine UA Negative (Negative); Leukocyte Esterase Urine Small (1+) (Negative); Nitrite Urine Negative (Negative); PH 5.5 (5.0-9.0); UMIC TRIGGER UACC YES; Urine Blood Negative (Negative); Urine Ketones Negative (Negative); Urine Protein Negative (Neg-Trace)
[2022-09-22 20:30] LABS: Bacteria Urine Trace (None Seen); Hyaline Casts Urine 0-2 /LPF (0-2); Squamous Epithelial Cell Urine 0-2 /HPF (0-2); UACC Culture Trigger YES; WBC Urine 0-5 /HPF (0-5)
[2022-09-22 20:40] LABS: Anion Gap 18 (12-20); Blood Urea Nitrogen 18 mg/dL (9-16); Calcium 8.7 mg/dL (8.4-10.2); Carbon Dioxide 23 mmol/L (22-29); Chloride 101 mmol/L (96-108); Creatinine Clr Calc Pharmacy 64.3; Estimated Glomerular Filt Rate 42; Glucose Random 101 mg/dL (60-115); Magnesium 1.9 mg/dL (1.6-2.6); Potassium 4.4 mmol/L (3.3-5.1); Sodium 138 mmol/L (135-145)
[2022-09-22 21:12] VITALS: BP 126/70; PULSE 72; RESP 16; TEMP 36.7; O2SAT 96
== END 2022-09-22 21:17 | disposition home or self-care (01) ==
PROVIDERS: Emergency Provider Emergency Medicine; PCP Internal Medicine
DX: R11.2 Nausea with vomiting, unspecified (principal); E83.42 Hypomagnesemia; R10.9 Unspecified abdominal pain; Z20.822 Contact with and (suspected) exposure to COVID-19; Z79.899 Other long term (current) drug therapy
CPT/HCPCS: 36415; 80048; 80076; 81001; 83690; 83735; 85025; 87086; 87635; 93005; 96365; 96366; 96375; 99284; 99285; J2405; J3475

== ENCOUNTER 2022-09-28 19:15 | Emergency (ER) | payer MEDICARE, MEDICAID, SELFPAY ==
[2022-09-28 19:22] VITALS: BP 128/76; PULSE 62; O2SAT 99
[2022-09-28 21:09] VITALS: BP 115/56; PULSE 60; RESP 18; TEMP 36.1; O2SAT 97; BMI 49.9
[2022-09-28 21:48] LABS: Basophils Absolute Auto 0.1 X10*3/uL (0.0-0.2); Basophils Percent Auto 0.4 % (0-2); Eosinophils Absolute Auto 0.2 X10*3/uL (0.0-0.4); Eosinophils Percent Auto 1.9 % (0-4); Hematocrit 32.7 % (37.0-47.0); Hemoglobin 11.3 g/dl (12.0-16.0); Imm Gran Abs Auto 0.04 X10*3/uL (0.00-0.03); Imm Gran Pct Auto 0.3 % (0.0-0.4); Lymphocytes Absolute Auto 5.7 X10*3/uL (1.2-4.9); Lymphocytes Percent Auto 45.8 % (20-40); MANUAL DIFF FLAG SCAN; Mean Corpuscular HGB Conc 34.6 g/dl (31.0-35.0); Mean Corpuscular Hemoglobin 31.6 pg (27.0-33.0); Mean Corpuscular Volume 91.3 fL (80.0-98.0); Mean Platelet Volume 8.8 fL (9.4-12.3); Monocytes Absolute Auto 0.9 X10*3/uL (0.1-1.2); Monocytes Percent Auto 7.6 % (2-11); Neutrophils Absolute Auto 5.5 x10*3/uL (2.0-8.3); Platelet Count 460 X10*3/uL (160-400); Red Blood Count 3.58 X10*6/uL (4.20-5.50); Red Cell Distribution Width 12.8 % (11.0-16.0); SCAN SMEAR FLAG 1; White Blood Count 12.4 X10*3/uL (4.8-10.8)
[2022-09-28 22:02] LABS: Alanine Aminotransferase 26 U/L (0-31); Albumin Level 4.5 g/dL (3.5-5.0); Alkaline Phosphatase 94 U/L (39-117); Anion Gap 18 (12-20); Aspartate Amino Transferase 30 U/L (5-31); Bilirubin Total 0.5 mg/dL (0.0-1.0); Blood Urea Nitrogen 26 mg/dL (9-16); Calcium 9.4 mg/dL (8.4-10.2); Carbon Dioxide 23 mmol/L (22-29); Chloride 99 mmol/L (96-108); Creatinine Clr Calc Pharmacy 47.6; Estimated Glomerular Filt Rate 30; Glucose Random 122 mg/dL (60-115); Potassium 5.1 mmol/L (3.3-5.1); Sodium 135 mmol/L (135-145); Total Protein 7.6 g/dL (6.5-8.0)
[2022-09-28 22:09] LABS: SLIDE REVIEW VERIFIED
--- NOTE | 2022-09-29 | ECG_ITS ---
Test Reason : DIZZINESS Blood Pressure : / mmHG Vent. Rate : 064 BPM Atrial Rate : 064 BPM P-R Int : 156 ms QRS Dur : 076 ms QT Int : 422 ms P-R-T Axes : 035 012 010 degrees QTc Int : 435 ms Normal sinus rhythm RSR' or QR pattern in V1 suggests right ventricular conduction delay Low voltage QRS Borderline ECG When compared with ECG of 22-SEP-2022 16:46, Heart rate has decreased Referred By: Generic ED Physician Electronically Signed By:RACHEL POWELL MD
[2022-09-29 01:19] VITALS: BP 117/57; PULSE 62; RESP 16; TEMP 36.2; O2SAT 98
[2022-09-29 02:03] VITALS: BP 76/49; BP 90/32; BP 94/43; PULSE 62; PULSE 66; PULSE 74
[2022-09-29 02:06] LABS: Glucose, Whole Blood 135 mg/dL (60-115)
[2022-09-29 02:25] VITALS: BP 90/49; PULSE 62; RESP 12; TEMP 36.7; O2SAT 97
[2022-09-29] MEDS: 0.9 % Sodium Chloride 1,000 ML 999 ML IV ×2 (02:54)
[2022-09-29 03:33] VITALS: BP 97/49; PULSE 67; RESP 16; O2SAT 96
[2022-09-29 04:24] VITALS: BP 120/53; PULSE 65; RESP 16; TEMP 36.8; O2SAT 97
--- NOTE | 2022-09-29 05:53 | ED_ITS ---
HPI - Dizziness General Chief Complaint: Dizziness Stated Complaint: DIZZY SINCE THIS AM Time Seen by Provider: 09/29/22 02:07 Source: patient Mode of arrival: EMS Limitations: no limitations History of Present Illness HPI Narrative: 57-year-old female who is brought to the emergency department by ambulance for evaluation of dizziness. She states that she was feeling dizzy all day. At around mid day, she states that the disease got worse and she felt very lightheaded. She states that she had difficulty walking and had to hang onto the waldron in order to walk. She states the dizziness got severe and she had to come to the emergency department by ambulance for evaluation she states she has had similar episodes in the past and was hospitalized February 2022 for 4 days. She believes that the dizziness may be related to her kidney disease. She denied fever, chills, rhinorrhea, sore throat, cough, dark tarry stools or bloody stools, myalgias or arthralgias. She has had no weight loss or weight gain. She states that she has a normal diet and drinks fluid throughout the day. Related Data Home Medications Medication Instructions Recorded Confirmed albuterol sulfate 90 mcg/actuation 2 puff inhalation Q6H PRN wheezing 01/06/22 07/14/22 aerosol inhaler atorvastatin 80 mg tablet 1 tab PO DAILY 01/06/22 07/14/22 bupropion HCl 150 mg 24 hr tablet, 1 tab PO BEDTIME 01/06/22 07/14/22 extended release bupropion HCl 300 mg 24 hr tablet, 1 tab PO BEDTIME 01/06/22 07/14/22 extended release clonidine HCl 0.1 mg tablet 2 tab PO BEDTIME 01/06/22 07/14/22 diltiazem HCl 180 mg 1 cap PO DAILY 01/06/22 07/14/22 capsule,extended release 24 hr, controlled (DILT-XR) dulaglutide 1.5 mg/0.5 mL 0.5 ml subcut QWEEK 01/06/22 07/14/22 subcutaneous pen injector ([facility]) ezetimibe 10 mg tablet 1 tab PO DAILY 01/06/22 07/14/22 gabapentin 300 mg capsule 1 cap PO BEDTIME 01/06/22 07/14/22 lamotrigine 100 mg tablet 1 tab PO DAILY 01/06/22 07/14/22 latanoprost 0.005 % eye drops 1 drp ophthalmic (eye) BEDTIME 01/06/22 07/14/22 levothyroxine 125 mcg tablet 1 tab PO DAILY@0600 01/06/22 07/14/22 lisinopril 30 mg tablet 1 tab PO DAILY 01/06/22 07/14/22 metformin 1,000 mg tablet 1 tab PO BID 01/06/22 07/14/22 trazodone 50 mg tablet 1.5 tab PO BEDTIME 01/06/22 07/14/22 citalopram 40 mg tablet 1 tab PO DAILY 07/14/22 07/14/22 omeprazole 40 mg capsule,delayed 40 mg PO DAILY@0630 07/14/22 07/14/22 release Previous Rx's Medication Instructions Recorded loperamide 2 mg capsule 2 mg PO Q6H PRN loose stool #10 09/22/22 caps ondansetron 4 mg disintegrating 4 mg PO Q6H PRN nausea and 09/22/22 tablet vomiting #14 tabs Allergies Allergy/AdvReac Type Severity Reaction Status Date / Time No Known Allergies Allergy Verified 07/13/22 20:08 Review of Systems Review of Systems: Yes all other systems are reviewed and are negative [facility] Past Medical History [facility] Narrative: Social history: She denies tobacco, alcohol and drug use. Medical History Anxiety CKD stage 3 secondary to diabetes Depression Diabetes Familial tremor Hyperlipemia Hypertension Obstructive sleep apnea Surgical History History of cholecystectomy Family History Family History Other Hypertension Social History Social History Household Members: Family Housing: Apartment Do you presently have visiting nurse or other home services: No Alcohol intake: never Patient Tobacco Use Status: Never used Tobacco Second Hand Smoke Exposure: No Advance Directives: No service: No Current occupational status: disabled Physical Exam Vital Signs: Vital Signs: Last Vital Signs Temp 98.3 F 09/29/22 04:24 Pulse 65 09/29/22 04:24 Resp 16 09/29/22 04:24 BP 120/53 L 09/29/22 04:24 Pulse Ox 97 09/29/22 04:24 O2 Del Method 09/29/22 04:24 BMI result Body Mass Index 49.9 Const: Other: Awake, alert, female patient, pleasant and cooperative, answers all questions appropriately, does not appear to be in distress. She has up elevated BMI of 49.9 HEENT: Head: Yes normal to inspection, Yes normocephalic and Yes atraumatic Ears: external ears normal General nose exam: Normal external nose present Face and sinus: Yes normal facial exam Mouth: Normal oral and palatal mucosa present Throat: Yes posterior oropharynx normal Eyes: General: appearance normal, both eyes and all related structures Pupils: Equal, round and reactive pupils present Neck: Neck: Yes normal visual inspection, Yes no lymphadenopathy, Yes trachea midline and Yes supple Chest: Chest palpation & inspection: normal inspection of the chest and normal palpation of entire chest wall Resp: Effort & Inspection: normal respiratory effort and able to speak in complete sentences Auscultation: clear to auscultation bilaterally Cardio: Rate: regular rate Rhythm: regular rhythm Heart sounds: S1 no rmal heart sound present, S2 normal heart sound present and no murmurs GI: Inspection: Yes normal to inspection Palpation (GI): Soft to palpation, nontender and no guarding Auscultation: normal bowel sounds : General: Yes no CVA tenderness Back/Spine/Pelvis: Back: no CVA tenderness Skin: General skin exam: no rashes or lesions noted Neuro: Cranial nerves: Yes CN's II-XII intact bilaterally and Yes Equal, round and reactive pupils present Cognition (Neuro): normal cognition Motor exam (neuro): 5/5 motor strength present throughout Extrem: General: Yes normal to inspection Psych: Appearance: grossly normal Speech and movement: Normal speech and movement present Affect: normal affect Attitude: cooperative Thought process: Normal thought process present Thought content: Normal thought content present Course Course Course Narrative: 57-year-old female who presents emergency department for evaluation of lightheadedness and dizziness which started yesterday, got progressively worse to the point where she was unable to stand and walk without holding onto the waldron and felt like she was going to pass out. Patient's initial vital signs were unremarkable. Exam was unremarkable. Laboratory evaluation is consistent with her chronic kidney disease otherwise was unremarkable. Patient orthostatic vital signs were obtained: Lying: Pulse 62, BP 90/32 Standing: Pulse 74, BP 76/49 Patient was symptomatic. The patient was treated with normal saline IV x2 and repeat orthostatic vital signs were normal with no drop in her systolic blood pressure. Patient states she is also feeling better. I did discuss orthostatic hypotension with the patient I advised her to continue to drink fluid throughout the day and eating a normal meal. Patient was advised to follow-up with provider. for further evaluation. MDM - Dizziness Lab Data Attestation: I reviewed the patient's lab results. Result diagrams: 09/28/22 21:41 09/28/22 21:41 Labs: Lab Results 09/28/22 09/28/22 09/29/22 Range/Units 21:41 21:41 02:01 WBC 12.4 H (4.8-10.8) X10*3/uL RBC 3.58 L (4.20-5.50) X10*6/uL Hgb 11.3 L (12.0-16.0) g/dl Hct 32.7 L (37.0-47.0) % MCV 91.3 (80.0-98.0) fL MCH 31.6 (27.0-33.0) pg MCHC 34.6 (31.0-35.0) g/dl RDW 12.8 (11.0-16.0) % Plt Count 460 H (160-400) X10*3/uL MPV 8.8 L (9.4-12.3) fL Immature Gran % (Auto) 0.3 (0.0-0.4) % Neut % (Auto) 44.0 L (45-73) % Lymph % (Auto) 45.8 H (20-40) % [place] % (Auto) 7.6 (2-11) % Eos % (Auto) 1.9 (0-4) % Baso % (Auto) 0.4 (0-2) % Lymph # (Auto) 5.7 H (1.2-4.9) X10*3/uL [place] # (Auto) 0.9 (0.1-1.2) X10*3/uL Eos # (Auto) 0.2 (0.0-0.4) X10*3/uL Baso # (Auto) 0.1 (0.0-0.2) X10*3/uL Abs Immat Gran (auto) 0.04 H (0.00-0.03) X10*3/uL Absolute Neuts (auto) 5.5 (2.0-8.3) x10*3/uL Absolute Nucleated RBC 0.000 (0.0-0.012) X10*3/uL Nucleated RBC % (auto) 0.0 (0.0-0.2) /100WBC Smear Tech's Comments VERIFIED Sodium 135 (135-145) mmol/L Potassium 5.1 (3.3-5.1) mmol/L Chloride 99 (96-108) mmol/L Carbon Dioxide 23 (22-29) mmol/L Anion Gap 18 (12-20) BUN 26 H (9-16) mg/dL Creatinine 1.74 H (0.5-1.4) mg/dL Estim Creat Clear Calc 47.6 Estimated GFR 30 POC Glucose 135 H (60-115) mg/dL Random Glucose 122 H (60-115) mg/dL Calcium 9.4 D (8.4-10.2) mg/dL Total Bilirubin 0.5 (0.0-1.0) mg/dL AST 30 D (5-31) U/L ALT 26 (0-31) U/L Alkaline Phosphatase 94 (39-117) U/L Total Protein 7.6 (6.5-8.0) g/dL Albumin 4.5 (3.5-5.0) g/dL ECG Data Interpretation: 0207: Normal sinus rhythm rate 64, normal DC interval, QRS duration QTC interval, no ST segment elevation, no ST segment depression, Q-wave in lead 3, no PACs, no PVCs compared to EKG dated 09/22/2022 there is no significant change. Discharge Plan Discharge Clinical Impression: Orthostatic hypotension, Dehydration Patient Disposition: Home, Self-Care Additional Instructions: Your blood work was unremarkable and was consistent with your chronic kidney disease. Your EKG was normal. Your systolic blood pressure went from 90/32 lying down to 76/49 standing with no change in your pulse. You did feel lightheaded and dizzy and this suggests that you have orthostatic hypotension (blood pressure the drops from stand-up). This is often related to being dehydrated and volume depleted. You were treated with 2 L of normal saline IV and your orthostatic vital signs improved. Your systolic blood pressure lying down was 120/62 and standing was 118/74 with no change in your pulse. You should make sure that you eat normal meals on a regular basis and drink fluid throughout the day. Follow-up with your doctor in 2 days. Please return to the emergency department if your symptoms get worse or if you develop any symptoms that are concerning to you. Prescriptions: No Action latanoprost 0.005 % drops 1 drp ophthalmic (eye) BEDTIME Rx Instructions: administer 1 drop into both eyes atorvastatin 80 mg tablet 1 tab PO DAILY clonidine HCl 0.1 mg tablet 2 tab PO BEDTIME trazodone 50 mg tablet 1.5 tab PO BEDTIME metformin 1,000 mg tablet 1 tab PO BID levothyroxine 125 mcg tablet 1 tab PO DAILY@0600 lisinopril 30 mg tablet 1 tab PO DAILY Hold Instructions: Resume on 01/12/22. gabapentin 300 mg capsule 1 cap PO BEDTIME albuterol sulfate 90 mcg/actuation HFA aerosol inhaler 2 puff inhalation Q6H PRN (Reason: wheezing) diltiazem HCl [DILT-XR] 180 mg capsule,ext.rel 24h degradable 1 cap PO DAILY lamotrigine 100 mg tablet 1 tab PO DAILY ezetimibe 10 mg tablet 1 tab PO DAILY bupropion HCl 300 mg tablet extended release 24 hr 1 tab PO BEDTIME bupropion HCl 150 mg tablet extended release 24 hr 1 tab PO BEDTIME Trulicity 1.5 mg/0.5 mL pen injector 0.5 ml subcut QWEEK citalopram 40 mg tablet 1 tab PO DAILY omeprazole 40 mg Capsule,Delayed Release(Dr/Ec) 40 mg PO DAILY@0630 ondansetron 4 mg tablet,disintegrating 4 mg PO Q6H PRN (Reason: nausea and vomiting) Qty: 14 0RF loperamide 2 mg capsule 2 mg PO Q6H PRN (Reason: loose stool) Qty: 10 0RF
[2022-09-29 06:04] VITALS: BP 130/67; PULSE 76; RESP 23; TEMP 36.4; O2SAT 97
== END 2022-09-29 06:19 | disposition home or self-care (01) ==
PROVIDERS: Emergency Provider Emergency Medicine Emergency Medical Services; PCP Internal Medicine
DX: I95.1 Orthostatic hypotension (principal); E86.0 Dehydration; E11.22 Type 2 diabetes mellitus with diabetic chronic kidney disease; I12.9 Hypertensive chronic kidney disease with stage 1 through stage 4 chronic kidney disease, or unspecified chronic kidney disease; N18.30 Chronic kidney disease, stage 3 unspecified; Z79.899 Other long term (current) drug therapy; Z79.02 Long term (current) use of antithrombotics/antiplatelets; Z79.84 Long term (current) use of oral hypoglycemic drugs
CPT/HCPCS: 36415; 80053; 82947; 85025; 93005; 96360; 96361; 99284

== ENCOUNTER 2023-09-22 22:59 | Emergency (ER) | payer MEDICARE, MEDICAID, SELFPAY ==
--- NOTE | 2023-09-22 | ECG_ITS ---
Test Reason : CHEST PAIN Blood Pressure : / mmHG Vent. Rate : 069 BPM Atrial Rate : 069 BPM P-R Int : 148 ms QRS Dur : 078 ms QT Int : 404 ms P-R-T Axes : 037 006 010 degrees QTc Int : 432 ms Normal sinus rhythm Normal ECG When compared with ECG of 29-SEP-2022 02:07, No significant change was found Referred By: Generic ED Physician Electronically Signed By:RACHEL POWELL MD
--- NOTE | ~2023-09-22 | CT_ITS ---
EXAMINATION: CT ABDOMEN AND PELVIS WITHOUT CONTRAST CLINICAL INFORMATION: Mid abdominal pain, nausea COMPARISON: 01/06/2022 TECHNIQUE: Multidetector volumetric imaging was performed from the superior aspect of the liver through the pubic symphysis. Sagittal and coronal reformatted images were obtained on the technologist's workstation. This CT examination was performed using dose optimization techniques as appropriate, variously including the following: *Automated exposure control *Adjustment of mA and/or kV according to patient size (this includes techniques or standardized protocols for targeted exams where dose is matched to indication/reason for exam; i.e. extremities or head) *Use of iterative reconstruction technique DLP: 1011 mGy-cm FINDINGS: LUNG BASES: The visualized lung bases are unremarkable. LIVER, GALLBLADDER, AND BILIARY TREE: The liver is normal in size, shape, and attenuation. No focal hepatic lesion or biliary ductal dilatation is identified on this noncontrast exam. Patient is status post cholecystectomy. PANCREAS: Unremarkable. SPLEEN: Unremarkable. ADRENAL GLANDS: Unremarkable. KIDNEYS AND URETERS: No hydronephrosis or obstructing calculus. BLADDER: Unremarkable. GASTROINTESTINAL TRACT: Mild colonic diverticulosis. The small and large bowel are otherwise unremarkable without evidence of obstruction or pericolonic inflammatory change. The appendix is unremarkable. No free fluid or free air is seen. ABDOMINAL WALL: No significant hernia is appreciated. LYMPH NODES: Normal. VASCULAR: Unremarkable. PELVIC VISCERA: Unremarkable. OSSEOUS STRUCTURES: Degenerative changes are noted in the spine. CT/CT abdomen pelvis wo IV con IMPRESSION: No acute findings identified in the abdomen/pelvis.
[2023-09-22 23:04] VITALS: BP 150/80; PULSE 68; RESP 16; TEMP 36.6; O2SAT 97; BMI 51.1
[2023-09-22 23:48] LABS: Basophils Absolute Auto 0.1 X10*3/uL (0.0-0.2); Basophils Percent Auto 0.5 % (0-2); Eosinophils Absolute Auto 0.4 X10*3/uL (0.0-0.4); Eosinophils Percent Auto 3.3 % (0-4); Hematocrit 32.1 % (37.0-47.0); Hemoglobin 11.4 g/dl (12.0-16.0); Imm Gran Abs Auto 0.02 X10*3/uL (0.00-0.03); Imm Gran Pct Auto 0.2 % (0.0-0.4); Lymphocytes Absolute Auto 5.7 X10*3/uL (1.2-4.9); Lymphocytes Percent Auto 51.5 % (20-40); MANUAL DIFF FLAG SCAN; Mean Corpuscular HGB Conc 35.5 g/dl (31.0-35.0); Mean Corpuscular Hemoglobin 32.4 pg (27.0-33.0); Mean Corpuscular Volume 91.2 fL (80.0-98.0); Mean Platelet Volume 8.7 fL (9.4-12.3); Monocytes Absolute Auto 0.9 X10*3/uL (0.1-1.2); Monocytes Percent Auto 8.5 % (2-11); Platelet Count 453 X10*3/uL (160-400); Red Blood Count 3.52 X10*6/uL (4.20-5.50); Red Cell Distribution Width 13.1 % (11.0-16.0); SCAN SMEAR FLAG 1
[2023-09-23 00:03] LABS: Alanine Aminotransferase 20 U/L (0-31); Albumin Level 4.4 g/dL (3.5-5.0); Alkaline Phosphatase 66 U/L (39-117); Anion Gap 15 (12-20); Aspartate Amino Transferase 20 U/L (5-31); Bilirubin Direct 0.1 mg/dL (0.0-0.5); Bilirubin Total 0.4 mg/dL (0.0-1.0); Blood Urea Nitrogen 16 mg/dL (9-16); Calcium 9.4 mg/dL (8.4-10.2); Carbon Dioxide 25 mmol/L (22-29); Chloride 103 mmol/L (96-108); Creatinine Clr Calc Pharmacy 58.5; Estimated Glomerular Filt Rate 38; Glucose Random 109 mg/dL (60-115); Lipase 24 U/L (8-78); Potassium 4.3 mmol/L (3.3-5.1); Sodium 139 mmol/L (135-145); Total Protein 7.6 g/dL (6.5-8.0)
--- NOTE | 2023-09-23 00:03 | PC.NURSE ---
nsr on monitor 68 bpm. iv established. labs drawn. ekg obtained. awaiting primary eval by ed provider. call segura within reach.
[2023-09-23 00:05] LABS: SLIDE REVIEW VERIFIED
[2023-09-23 00:08] LABS: Troponin-I High Sensitivity 4.3 ng/L (<3.5-17.0)
--- NOTE | 2023-09-23 00:15 | ED.GENADULT ---
HPI - General Adult General Chief complaint: Abdominal Pain Stated complaint: Abdominal discomfort Time Seen by Provider: 09/23/23 00:14 Source: patient and RN notes reviewed History of Present Illness HPI narrative: A 58-year-old female who has a history of diabetes, CKD stage 3, presents complaining of abdominal pain. Patient states it began in the mid abdomen yesterday while she was at rest. She reports this is sharp in nature. It has remained constant since that time and has progressively worsened. She reports it is now radiating towards her back and lowered her abdomen. She has not tried any medication for this. She is experiencing waves of nausea but no vomiting. She denies any urinary symptoms. She relates that to previous cholecystitis for which she has had a cholecystectomy. He had been eating and drinking well prior to this. Of note, patient was hypo magnesemia and starting magnesium repletion yesterday. Related Data Home Medications Medication Instructions Recorded Confirmed albuterol sulfate 90 mcg/actuation 2 puff inhalation Q6H PRN wheezing 01/06/22 07/14/22 aerosol inhaler atorvastatin 80 mg tablet 1 tab PO DAILY 01/06/22 07/14/22 bupropion HCl 150 mg 24 hr tablet, 1 tab PO BEDTIME 01/06/22 07/14/22 extended release bupropion HCl 300 mg 24 hr tablet, 1 tab PO BEDTIME 01/06/22 07/14/22 extended release clonidine HCl 0.1 mg tablet 2 tab PO BEDTIME 01/06/22 07/14/22 diltiazem HCl 180 mg 1 cap PO DAILY 01/06/22 07/14/22 capsule,extended release 24 hr, controlled (DILT-XR) dulaglutide 1.5 mg/0.5 mL 0.5 ml subcut QWEEK 01/06/22 07/14/22 subcutaneous pen injector (Trulicity) ezetimibe 10 mg tablet 1 tab PO DAILY 01/06/22 07/14/22 gabapentin 300 mg capsule 1 cap PO BEDTIME 01/06/22 07/14/22 lamotrigine 100 mg tablet 1 tab PO DAILY 01/06/22 07/14/22 latanoprost 0.005 % eye drops 1 drp ophthalmic (eye) BEDTIME 01/06/22 07/14/22 levothyroxine 125 mcg tablet 1 tab PO DAILY@0600 01/06/22 07/14/22 lisinopril 30 mg tablet 1 tab PO DAILY 01/06/22 07/14/22 metformin 1,000 mg tablet 1 tab PO BID 01/06/22 07/14/22 trazodone 50 mg tablet 1.5 tab PO BEDTIME 01/06/22 07/14/22 citalopram 40 mg tablet 1 tab PO DAILY 07/14/22 07/14/22 omeprazole 40 mg capsule,delayed 40 mg PO DAILY@0630 07/14/22 07/14/22 release Previous Rx's Medication Instructions Recorded loperamide 2 mg capsule 2 mg PO Q6H PRN loose stool #10 09/22/22 caps ondansetron 4 mg disintegrating 4 mg PO Q6H PRN nausea and 09/22/22 tablet vomiting #14 tabs Allergies Allergy/AdvReac Type Severity Reaction Status Date / Time No Known Allergies Allergy Verified 07/13/22 20:08 Review of Systems Constitutional: Constitutional: Denies body ache(s) and Denies chills Cardiovascular: Cardiovascular: Denies chest pain Respiratory: Respiratory: Denies cough Gastrointestinal: Gastrointestinal: Reports abdominal pain, Denies constipation, Denies excessive flatus, Denies diarrhea, Reports nausea and Denies vomiting Genitourinary: Genitourinary: Denies difficulty voiding PMFSH Past Medical History Medical History Obstructive sleep apnea Familial tremor Hypertension Diabetes Depression Anxiety Hyperlipemia CKD stage 3 secondary to diabetes Surgical History History of cholecystectomy Family History Family History Other Hypertension Social History Social History Household Members: Family Housing: Apartment Do you presently have visiting nurse or other home services: No Alcohol intake: never Patient Tobacco Use Status: Never used Tobacco Second Hand Smoke Exposure: No Advance Directives: No Advance Directives Information Provided: No service: No Current occupational status: disabled Physical Exam ED Vital Signs: Vital Signs - 24 hr 09/22/23 23:04 Temperature 97.9 F Pulse Rate 68 Respiratory Rate 16 Blood Pressure 150/80 H Pulse Oximetry 97 Oxygen Delivery Method Room Air BMI result Body Mass Index 51.1 Const General: cooperative, alert, awake and Physically active Orientation/consciousness: patient oriented x3 Resp Auscultation: clear to auscultation bilaterally Cardio Rate: regular rate Rhythm: regular rhythm GI Other: Abdomen is soft, tender in the mid abdomen and right lower quadrant. There is no peritoneal signs. No palpable masses. No CVAT Neuro General: patient oriented x3 Course Reevaluation(s) Reevaluation #1: Reassess in the patient's abdomen is soft nontender at this time. CT results returned, no acute process. I have reviewed all imaging findings with the patient her son at the bedside. Re-reviewed laboratory findings with the patient. Patient currently tolerating magnesium repletion. The patient hit will follow-up with PCP. She also recently started famotidine and Zofran and has these medications at home. She will continue with them. Patient expresses understanding of all discharge instructions and has no further questions at this time Time: 01:57 Medications Administered Discontinued Medications Generic Name Dose Route Start Last Admin Trade Name Freq PRN Reason Stop Dose Admin Sodium Chloride 1,000 mls @ 999 mls/hr 09/23/23 00:30 09/23/23 00:31 Ns IV 09/23/23 01:30 999 mls/hr .Q1H1M RAJENDRA Administration Magnesium Sulfate/Dextrose 1 gm in 100 mls @ 100 mls/hr 09/23/23 00:47 09/23/23 01:09 Magnesium Sulfate/D5w IV 09/23/23 01:46 100 mls/hr ONCE ONE Administration Morphine Sulfate 4 mg 09/23/23 00:37 09/23/23 00:46 Morphine Sulfate 4 Mg/Ml Cartridge IVPUSH 09/23/23 00:38 4 mg ONCE ONE Administration Protocol Ondansetron HCl 4 mg 09/23/23 00:38 09/23/23 00:46 Ondansetron Hcl 4 Mg/2 Ml Vial IVPUSH 09/23/23 00:39 4 mg ONCE ONE Administration Medical Decision Making Medical Decision Making MDM Narrative: 58-year-old female with history of CKD D stage III, diabetes, hypertension, presents with abdominal pain. Patient reporting that she is quite uncomfortable however pain seems to be out of portion of exam. Attempt at bedside ultrasound unsuccessful due to patient body habitus. Awaiting CT. Magnesium returned at 1 point the IV. Differential Diagnosis Differential Diagnoses: The differential diagnosis associated with the presentation includes A bowel obstruction Appendicitis Colitis Dissection UTI Lab Data MDM Lab Attestation statement: I reviewed the patient's lab results. 09/22/23 23:25 09/22/23 23:25 Labs: Lab Results 09/22/23 09/22/23 Range/Units 23:24 23:25 WBC 11.0 H (4.8-10.8) X10*3/uL RBC 3.52 L (4.20-5.50) X10*6/uL Hgb 11.4 L (12.0-16.0) g/dl Hct 32.1 L (37.0-47.0) % MCV 91.2 (80.0-98.0) fL MCH 32.4 (27.0-33.0) pg MCHC 35.5 H (31.0-35.0) g/dl RDW 13.1 (11.0-16.0) % Plt Count 453 H (160-400) X10*3/uL MPV 8.7 L (9.4-12.3) fL Immature Gran % (Auto) 0.2 (0.0-0.4) % Neut % (Auto) 36.0 L (45-73) % Lymph % (Auto) 51.5 H (20-40) % [place] % (Auto) 8.5 (2-11) % Eos % (Auto) 3.3 (0-4) % Baso % (Auto) 0.5 (0-2) % Lymph # (Auto) 5.7 H (1.2-4.9) X10*3/uL [place] # (Auto) 0.9 (0.1-1.2) X10*3/uL Eos # (Auto) 0.4 (0.0-0.4) X10*3/uL Baso # (Auto) 0.1 (0.0-0.2) X10*3/uL Abs Immat Gran (auto) 0.02 (0.00-0.03) X10*3/uL Absolute Neuts (auto) 4.0 (2.0-8.3) x10*3/uL Absolute Nucleated RBC 0.000 (0.0-0.012) X10*3/uL Nucleated RBC % (auto) 0.0 (0.0-0.2) /100WBC Smear Tech's Comments VERIFIED Sodium 139 (135-145) mmol/L Potassium 4.3 (3.3-5.1) mmol/L Chloride 103 (96-108) mmol/L Carbon Dioxide 25 (22-29) mmol/L Anion Gap 15 (12-20) BUN 16 (9-16) mg/dL Creatinine 1.42 H (0.5-1.4) mg/dL Estim Creat Clear Calc 58.5 Estimated GFR 38 Random Glucose 109 (60-115) mg/dL Calcium 9.4 (8.4-10.2) mg/dL Magnesium 1.4 L* (1.6-2.6) mg/dL Total Bilirubin 0.4 (0.0-1.0) mg/dL Direct Bilirubin 0.1 (0.0-0.5) mg/dL AST 20 (5-31) U/L ALT 20 (0-31) U/L Alkaline Phosphatase 66 (39-117) U/L Troponin I High Sens 4.3 (<3.5-17.0) ng/L Total Protein 7.6 (6.5-8.0) g/dL Albumin 4.4 (3.5-5.0) g/dL Lipase 24 (8-78) U/L Radiology Impression Discussion of test interpretation with radiology: I have reviewed the radiologist's reading. Radiologist Impression: [address] [place] [address] CT Scan Report Signed Patient: Rhona Oshea MR#: [id number] : 1965 Acct:[id number] Age/Sex: 58 / F ADM Date: 09/22/23 Loc: HO.ED Attending Dr: Ordering Physician: Diomedes Lake Date of Service: 09/23/23 Procedure(s): CT abdomen pelvis wo IV con Accession Number(s): [id number] cc: JOSEPH SHEARER MD; Diomedes Lake~ EXAMINATION: CT ABDOMEN AND PELVIS WITHOUT CONTRAST CLINICAL INFORMATION: Mid abdominal pain, nausea COMPARISON: 01/06/2022 TECHNIQUE: Multidetector volumetric imaging was performed from the superior aspect of the liver through the pubic symphysis. Sagittal and coronal reformatted images were obtained on the technologist's workstation. This CT examination was performed using dose optimization techniques as appropriate, variously including the following: *Automated exposure control *Adjustment of mA and/or kV according to patient size (this includes techniques or standardized protocols for targeted exams where dose is matched to indication/reason for exam; i.e. extremities or head) *Use of iterative reconstruction technique DLP: 1011 mGy-cm FINDINGS: LUNG BASES: The visualized lung bases are unremarkable. LIVER, GALLBLADDER, AND BILIARY TREE: The liver is normal in size, shape, and attenuation. No focal hepatic lesion or biliary ductal dilatation is identified on this noncontrast exam. Patient is status post cholecystectomy. PANCREAS: Unremarkable. SPLEEN: Unremarkable. ADRENAL GLANDS: Unremarkable. KIDNEYS AND URETERS: No hydronephrosis or obstructing calculus. BLADDER: Unremarkable. GASTROINTESTINAL TRACT: Mild colonic diverticulosis. The small and large bowel are otherwise unremarkable without evidence of obstruction or pericolonic inflammatory change. The appendix is unremarkable. No free fluid or free air is seen. ABDOMINAL WALL: No significant hernia is appreciated. LYMPH NODES: Normal. VASCULAR: Unremarkable. PELVIC VISCERA: Unremarkable. OSSEOUS STRUCTURES: Degenerative changes are noted in the spine. CT/CT abdomen pelvis wo IV con IMPRESSION: No acute findings identified in the abdomen/pelvis. 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 [place] diet. Gradually advanced. Continue famotidine as directed Continue Zofran as directed for nausea. Follow-up with your primary care provider. Call this week to schedule a follow-up appointment. Have your magnesium recheck this week. Return to the emergency department if you have any worsening of symptoms, or any concerns. Get well soon! Prescriptions: No Action latanoprost 0.005 % drops 1 drp ophthalmic (eye) BEDTIME Rx Instructions: administer 1 drop into both eyes atorvastatin 80 mg tablet 1 tab PO DAILY clonidine HCl 0.1 mg tablet 2 tab PO BEDTIME trazodone 50 mg tablet 1.5 tab PO BEDTIME metformin 1,000 mg tablet 1 tab PO BID levothyroxine 125 mcg tablet 1 tab PO DAILY@0600 lisinopril 30 mg tablet 1 tab PO DAILY Hold Instructions: Resume on 01/12/22. gabapentin 300 mg capsule 1 cap PO BEDTIME albuterol sulfate 90 mcg/actuation HFA aerosol inhaler 2 puff inhalation Q6H PRN (Reason: wheezing) diltiazem HCl [DILT-XR] 180 mg capsule,ext.rel 24h degradable 1 cap PO DAILY lamotrigine 100 mg tablet 1 tab PO DAILY ezetimibe 10 mg tablet 1 tab PO DAILY bupropion HCl 300 mg tablet extended release 24 hr 1 tab PO BEDTIME bupropion HCl 150 mg tablet extended release 24 hr 1 tab PO BEDTIME Trulicity 1.5 mg/0.5 mL pen injector 0.5 ml subcut QWEEK citalopram 40 mg tablet 1 tab PO DAILY omeprazole 40 mg Capsule,Delayed Release(Dr/Ec) 40 mg PO DAILY@0630 ondansetron 4 mg tablet,disintegrating 4 mg PO Q6H PRN (Reason: nausea and vomiting) Qty: 14 0RF loperamide 2 mg capsule 2 mg PO Q6H PRN (Reason: loose stool) Qty: 10 0RF
[2023-09-23] MEDS: 0.9 % Sodium Chloride 1,000 ML 999 ML IV (00:31)
[2023-09-23 00:43] LABS: Magnesium 1.4 mg/dL (1.6-2.6)
[2023-09-23] MEDS: Morphine Sulfate 4 MG/ML CARTRIDGE IVPUSH (00:46)
[2023-09-23] MEDS: ondansetron HCL 4 MG/2 ML VIAL IVPUSH (00:46)
[2023-09-23] MEDS: Magnesium Sulfate/D5W 1 GM/100 ML PIGGYBACK IV (01:09)
[2023-09-23 02:44] VITALS: PULSE 63; RESP 16; O2SAT 98
--- NOTE | 2023-09-23 02:44 | PC.NURSE ---
pt unable to provide ua sample; Diomedes PERKINS stated as long as pt does not have urinary sx, can proceed with d/c. pt denies urinary sx; states recently had a UA with pcp.
== END 2023-09-23 02:48 | disposition home or self-care (01) ==
PROVIDERS: Physician Assistant; Emergency Provider Emergency Medicine; PCP Internal Medicine
DX: R10.31 Right lower quadrant pain (principal); E11.22 Type 2 diabetes mellitus with diabetic chronic kidney disease; I12.9 Hypertensive chronic kidney disease with stage 1 through stage 4 chronic kidney disease, or unspecified chronic kidney disease; N18.30 Chronic kidney disease, stage 3 unspecified; Z79.85 Long-term (current) use of injectable non-insulin antidiabetic drugs; Z79.84 Long term (current) use of oral hypoglycemic drugs; Z79.899 Other long term (current) drug therapy
CPT/HCPCS: 36415; 74176; 80048; 80076; 83690; 83735; 84484; 85025; 93005; 96361; 96374; 96375; 99284; 99285; J2270; J2405; J3475

== ENCOUNTER 2023-11-28 13:08 | Outpatient (REF) | payer MEDICARE, MEDICAID, SELFPAY ==
--- NOTE | ~2023-11-28 | MM_ITS ---
EXAMINATION: MM SCREENING DIGITAL BREAST TOMOSYNTHESIS, BILATERAL CLINICAL INFORMATION: Screening. Asymptomatic. COMPARISON: Mammography: 03/28/2018, 04/02/2015, 05/19/2010. TECHNIQUE: Digital breast tomosynthesis is performed in both the craniocaudal and mediolateral oblique views along with computer-aided detection (CAD). Synthesized 2D images are generated from the tomosynthesis. In addition, additional bilateral MLO and CC projections were also included. FINDINGS: The breasts are almost entirely fatty (ACR BI-RADS breast composition Category a). There are no significant masses, abnormal calcifications, or other abnormalities. There are a few scattered skin calcifications present. Parenchymal pattern is overall unchanged from prior exams. MM/MM tomosynthesis screening BI IMPRESSION: No mammographic evidence of malignancy. ASSESSMENT: BI-RADS BI-RADS 2 - Benign Findings RECOMMENDATION: Routine annual mammography screening. 1 year F/U This examination should not preclude the clinical evaluation of a suspicious palpable abnormality. This patient's information was entered into a reminder system with a target due date for their next mammogram.
== END 2023-11-28 13:09 | disposition home or self-care (01) ==
LOC: HO.MAMMO 13:08
PROVIDERS: PCP Internal Medicine; Visit Provider Internal Medicine
DX: Z12.31 Encounter for screening mammogram for malignant neoplasm of breast (principal)
CPT/HCPCS: 77063; 77067

== ENCOUNTER → 2023-11-28 13:45 | Outpatient (BNV) | payer MEDICARE, MEDICAID, SELFPAY | PROVIDERS: PCP Internal Medicine; Visit Provider Radiology Diagnostic Radiology | DX: Z12.31 Encounter for screening mammogram for malignant neoplasm of breast (principal) | CPT/HCPCS: 77063; 77067 ==